=== PATIENT | female | born 1940 | race Caucasian/White ===

== ENCOUNTER 2017-03-28 19:57 | Inpatient (IN) | payer OTHER ==
[~2017-03-28] VITALS: Ht 160 cm; Wt 72.7 kg
[2017-03-28] MEDS ORDERED: FENTANYL CITRATE INJ 50 MCG/1 ML 2 ML VIAL IV STA (20:23)
[2017-03-28] MEDS ORDERED: AMLO-114 PO (20:47)
[2017-03-28] MEDS ORDERED: NAPR1TAB9 PO (20:47)
[2017-03-28] MEDS ORDERED: SITA50TA3 PO (20:47)
[2017-03-28] MEDS ORDERED: LNX25 PO (20:47)
[2017-03-28] MEDS ORDERED: METO25TA4 PO (20:47)
[2017-03-28] MEDS ORDERED: GLC500 PO (20:47)
--- NOTE | 2017-03-28 21:53 | DIAGNOSTIC IMAGING REPORT ---
PELVIS 1 OR 2 VIEW ROUTINE CLINICAL HISTORY: 76 years-old Female presenting with trauma, fall this evening, left hip and knee pain. TECHNIQUE: Single frontal view the pelvis was obtained. COMPARISON: None. FINDINGS: Sacroiliac joints and pubic symphysis congruent. Femoral heads congruent though a subcapital left femoral neck fracture is evident. The fracture is impacted with proximal displacement of the distal fracture fragment and laterally displaced 17 mm. No fracture of the bony pelvis. Degenerative changes of the spine. IMPRESSION: 1. Impacted and mildly displaced subcapital left femoral neck fracture. 2. No pelvic fracture. The report will be called/faxed according to standard departmental protocol. Electronically signed by: Shreyas Mak M.D. 03/28/2017 9:52 PM Dictated Date/Time: 03/28/2017 9:50 PM
--- NOTE | 2017-03-28 21:54 | DIAGNOSTIC IMAGING REPORT ---
CHEST ONE VIEW PORTABLE CLINICAL HISTORY: 76 years-old Female presenting with trauma. TECHNIQUE: Portable upright AP view of the chest was obtained. COMPARISON: None. FINDINGS: Atherosclerosis of the aortic arch. Cardiac silhouette normal in size. Lungs and pleural spaces clear. Degenerative changes of the thoracic spine. Degenerative changes of the shoulders. Cholecystectomy clips noted. IMPRESSION: 1. No acute cardiopulmonary disease. Electronically signed by: Shreyas Mak M.D. 03/28/2017 9:52 PM Dictated Date/Time: 03/28/2017 9:52 PM
--- NOTE | 2017-03-28 21:55 | DIAGNOSTIC IMAGING REPORT ---
L HIP UNILATERAL 2 VIEWS CLINICAL HISTORY: 76 years-old Female presenting with trauma, pain. TECHNIQUE: Frontal and crosstable lateral views of the left hip were obtained. COMPARISON: None. FINDINGS: Impacted mildly displaced subcapital left femoral neck fracture. The left femoral head remains congruent in the acetabulum. No significant angulation. Visualized portion of the bony pelvis intact. No radiographic soft tissue abnormality. IMPRESSION: Impacted mildly displaced subcapital left femoral neck fracture. Electronically signed by: Shreyas Mak M.D. 03/28/2017 9:53 PM Dictated Date/Time: 03/28/2017 9:53 PM
--- NOTE | 2017-03-28 21:56 | DIAGNOSTIC IMAGING REPORT ---
L KNEE 1 OR 2 VIEWS ROUTINE CLINICAL HISTORY: 76 years-old Female presenting with trauma, fall this evening. TECHNIQUE: Frontal and lateral views of the left knee were obtained. COMPARISON: None. FINDINGS: Osteopenia suspected. This limits evaluation for nondisplaced fracture. Tricompartmental degenerative changes. No acute fracture or malalignment is evident allowing for positioning. No significant knee joint effusion. Soft tissue swelling over the patella suggested. IMPRESSION: 1. Allowing for osteopenia, no evidence of acute osseous injury. 2. Tricompartmental degenerative changes suggested. Electronically signed by: Shreyas Mak M.D. 03/28/2017 9:55 PM Dictated Date/Time: 03/28/2017 9:54 PM
[2017-03-28 22:09] LABS: BASO % 0.3 %; BASO ABS # 0.03 K/uL (0-0.2); EOS % 0.4 %; EOS ABS # 0.04 K/uL (0-0.5); HEMATOCRIT 40.5 % (37-47); HEMOGLOBIN 13.4 g/dL (12.0-16.0); IG# 0.06 K/uL (0.00-0.02); LYMPH % 7.3 %; MEAN CELL VOLUME 91.8 fL (80-100); MEAN CORPUSCULAR HEMOGLOBIN 30.4 pg (25-34); MEAN CORPUSCULAR HGB CONC 33.1 g/dl (32-36); MEAN PLATELET VOLUME 12.4 fL (7.4-10.4); MONO % 4.1 %; MONO ABS # 0.45 K/uL (0.11-0.59); NEUT % 87.4 %; NEUT ABS # 9.65 K/uL (1.4-6.5); PLATELET COUNT 183 K/uL (130-400); RED CELL DISTRIBUTION WIDTH CV 12.5 % (11.5-14.5); RED CELL DISTRIBUTION WIDTH SD 42.3 fL (36.4-46.3); WHITE BLOOD COUNT 11.03 K/uL (4.8-10.8)
[2017-03-28 22:17] LABS: CALCIUM 9.2 mg/dl (8.5-10.1); CREATININE 1.36 mg/dl (0.60-1.20)
[2017-03-28 22:20] LABS: TOTAL PROTEIN 7.5 gm/dl (6.4-8.2)
[2017-03-28] MEDS ORDERED: MoRPHine SULFATE 4 MG/ML 1 ML CARP\\VIAL IV STA (22:30)
[2017-03-28] MEDS ORDERED: MAGNESIUM HYDROXIDE SUSP 30 ML UDC PO PRN (22:45)
[2017-03-28] MEDS ORDERED: NALOXONE HCL 0.4 MG/1 ML VIAL/CARP IV PRN (22:45)
[2017-03-28] MEDS ORDERED: POLYETHYLENE (MIRALAX) 17 GM PACK PO PRN (22:45)
[2017-03-28] MEDS ORDERED: SOD PHOSPHATE/SOD BIPHOSPHATE ENEMA 132 ML BTL PR PRN (22:45)
[2017-03-28] MEDS ORDERED: BISACODYL 10 MG SUPP PR PRN (22:45)
--- NOTE | 2017-03-28 23:00 | EMERGENCY ROOM VISIT NOTE ---
History Report prepared by Yao: Autumn Schmitt Under the Supervision of: Dr. Maggi Ni D.O. First contact with patient: 20:07 Chief Complaint: FALL Stated Complaint: FALL, L HIP & KNEE PAIN History of Present Illness The patient is a 76 year old female who presents to the Emergency Room with complaints of an episode of fall [employer]ICER. The patient presents to the ED by EMS. She was walking from her laundry room to the kitchen. She turned to turn off the light when she lost her balance and fell. She landed on her left side. She reports left hip and left knee pain. She was able to pull herself up using a barstool, but she cannot bear weight on her left leg. She denies any head injury or LOC. She denies any rib pain, abdominal pain, shoulder pain, neck pain , or back pain. She is not on any blood thinners. Source of History: patient Onset: [employer] OFFICER Position: other (global) Quality: other (fall) Timing: other (episodic) Associated Symptoms: No LOC, No neck pain, No abdominal pain, No back pain Note: Pt reports left hip pain, left knee pain. Review of Systems See HPI for pertinent positives & negatives. A total of 10 systems reviewed and were otherwise negative. Past Medical & Surgical Medical Problems: (1) CHF (congestive heart failure) (2) DMII (diabetes mellitus, type 2) (3) Osteoarthritis Surgical Problems: (1) S/P jose daniel (2) S/P herniorrhaphy Family History Noncontributory secondary to age. Social History Marital Status: Occupation Status: retired Current/Historical Medications Scheduled Amlodipine (Norvasc), 10 MG PO DAILY Digoxin (Digoxin), 0.25 MG PO [id number] Metformin HCl (Metformin HCl), 500 MG PO BID Metoprolol Succinate (Toprol Xl), 25 MG PO DAILY Naproxen (Aleve), 220 MG PO NEEDED Sitagliptin (Januvia), 50 MG PO DAILY Allergies Coded Allergies: No Known Allergies (Unverified , 03/28/17) Physical Exam Vital Signs Date Time Temp Pulse Resp B/P (MAP) Pulse Ox O2 Delivery O2 Flow Rate FiO2 03/28/17 23:04 86 18 151/104 94 Room Air 03/28/17 22:19 83 2/10/18 22:07 87 18 153/87 92 Room Air 03/28/17 20:08 36.4 77 18 160/110 92 Room Air Physical Exam GENERAL: alert, well appearing, well nourished, no distress, non-toxic HEAD: normocephalic, atraumatic. EYE EXAM: normal conjunctiva, PERRL and EOM's grossly intact OROPHARYNX: no exudate, no erythema, lips, buccal mucosa, and tongue normal and mucous membranes are moist NECK: supple, no nuchal rigidity, no adenopathy, non-tender CHEST: No rib tenderness. LUNGS: Clear to auscultation. No wheezes, rhonchi, rales. Normal chest wall mechanics HEART: no murmurs, S1 normal and S2 normal ABDOMEN: abdomen soft, non-tender, normo-active bowel sounds, no masses, no rebound or guarding. BACK: Back is symmetrical on inspection and there is no deformity, no midline tenderness, no CVA tenderness. SKIN: no rashes and no bruising UPPER EXTREMITIES: upper extremities are grossly normal. LOWER EXTREMITIES: Pain with palpation over the left hip and left knee. LLE slightly externally rotated. Normal pulses. No edema. No obvious deformity. Decreased ROM secondary to pain. NEURO EXAM: Normal sensorium, cranial nerves II-XII grossly intact, normal speech, no gross weakness of arms, no gross weakness of legs. Medical Decision & Procedures ER Provider Diagnostic Interpretation: Xray results have been interpreted by the radiologist and by me. CHEST ONE VIEW PORTABLE CLINICAL HISTORY: 76 years-old Female presenting with trauma. TECHNIQUE: Portable upright AP view of the chest was obtained. COMPARISON: None. FINDINGS: Atherosclerosis of the aortic arch. Cardiac silhouette normal in size. Lungs and pleural spaces clear. Degenerative changes of the thoracic spine. Degenerative changes of the shoulders. Cholecystectomy clips noted. IMPRESSION: 1. No acute cardiopulmonary disease. Electronically signed by: Shreyas Mak M.D. 03/28/2017 9:52 PM Dictated Date/Time: 03/28/2017 9:52 PM L HIP UNILATERAL 2 VIEWS CLINICAL HISTORY: 76 years-old Female presenting with trauma, pain. TECHNIQUE: Frontal and crosstable lateral views of the left hip were obtained. COMPARISON: None. FINDINGS: Impacted mildly displaced subcapital left femoral neck fracture. The left femoral head remains congruent in the acetabulum. No significant angulation. Visualized portion of the bony pelvis intact. No radiographic soft tissue abnormality. IMPRESSION: Impacted mildly displaced subcapital left femoral neck fracture. Electronically signed by: Shreyas Mak M.D. 03/28/2017 9:53 PM Dictated Date/Time: 03/28/2017 9:53 PM L KNEE 1 OR 2 VIEWS ROUTINE CLINICAL HISTORY: 76 years-old Female presenting with trauma, fall this evening. TECHNIQUE: Frontal and lateral views of the left knee were obtained. COMPARISON: None. FINDINGS: Osteopenia suspected. This limits evaluation for nondisplaced fracture. Tricompartmental degenerative changes. No acute fracture or malalignment is evident allowing for positioning. No significant knee joint effusion. Soft tissue swelling over the patella suggested. IMPRESSION: 1. Allowing for osteopenia, no evidence of acute osseous injury. 2. Tricompartmental degenerative changes suggested. Electronically signed by: Shreyas Mak M.D. 03/28/2017 9:55 PM Dictated Date/Time: 03/28/2017 9:54 PM PELVIS 1 OR 2 VIEW ROUTINE CLINICAL HISTORY: 76 years-old Female presenting with trauma, fall this evening, left hip and knee pain. TECHNIQUE: Single frontal view the pelvis was obtained. COMPARISON: None. FINDINGS: Sacroiliac joints and pubic symphysis congruent. Femoral heads congruent though a subcapital left femoral neck fracture is evident. The fracture is impacted with proximal displacement of the distal fracture fragment and laterally displaced 17 mm. No fracture of the bony pelvis. Degenerative changes of the spine. IMPRESSION: 1. Impacted and mildly displaced subcapital left femoral neck fracture. 2. No pelvic fracture. The report will be called/faxed according to standard departmental protocol. Electronically signed by: Shreyas Mak M.D. 03/28/2017 9:52 PM Dictated Date/Time: 03/28/2017 9:50 PM Laboratory Results Test 03/28/17 20:08 Immature Granulocyte % (Auto) 0.5 % White Blood Count 11.03 K/uL (4.8-10.8) Red Blood Count 4.41 M/uL (4.2-5.4) Hemoglobin 13.4 g/dL (12.0-16.0) Hematocrit 40.5 % (37-47) Mean Corpuscular Volume 91.8 fL (80-100) Mean Corpuscular Hemoglobin 30.4 pg (25-34) Mean Corpuscular Hemoglobin Concent 33.1 g/dl (32-36) Platelet Count 183 K/uL (130-400) Mean Platelet Volume 12.4 fL (7.4-10.4) Neutrophils (%) (Auto) 87.4 % Lymphocytes (%) (Auto) 7.3 % Monocytes (%) (Auto) 4.1 % Eosinophils (%) (Auto) 0.4 % Basophils (%) (Auto) 0.3 % Neutrophils # (Auto) 9.65 K/uL (1.4-6.5) Lymphocytes # (Auto) 0.80 K/uL (1.2-3.4) Monocytes # (Auto) 0.45 K/uL (0.11-0.59) Eosinophils # (Auto) 0.04 K/uL (0-0.5) Basophils # (Auto) 0.03 K/uL (0-0.2) Immature Granulocyte # (Auto) 0.06 K/uL (0.00-0.02) Prothrombin Time 10.3 SECONDS (9.0-12.0) Prothromb Time International Ratio 1.0 (0.9-1.1) Total Bilirubin 0.3 mg/dl (0.2-1) Aspartate Amino Transf (AST/SGOT) 18 U/L (15-37) Alanine Aminotransferase (ALT/SGPT) 23 U/L (12-78) Alkaline Phosphatase 50 U/L (45-117) Total Protein 7.5 gm/dl (6.4-8.2) Albumin 4.0 gm/dl (3.4-5.0) Globulin 3.5 gm/dl (2.5-4.0) Albumin/Globulin Ratio 1.1 (0.9-2) Laboratory results per my review. Medications Administered Medications (Trade) Dose Ordered Sig/Lauren Route Start Time Stop Time Status Last Admin Dose Admin Fentanyl Citrate (Fentanyl Inj) 50 mcg NOW STAT IV 03/28/17 20:23 03/28/17 20:24 DC 03/28/17 20:33 50 MCG Morphine Sulfate (MoRPHine SULFATE INJ) 2 mg NOW STAT IV 03/28/17 22:30 03/28/17 22:31 DC 03/28/17 22:44 2 MG Acetaminophen (Tylenol Tab) 650 mg Q6H PRN PO 03/28/17 22:45 04/27/17 22:44 03/29/17 22:24 650 MG Oxycodone HCl (Roxicodone Immediate Rel Tab) 5 mg Q4H PRN PO 03/28/17 22:45 04/11/17 22:44 03/29/17 20:42 5 MG Morphine Sulfate (MoRPHine SULFATE INJ) 2 mg Q2H PRN IV 03/28/17 22:45 04/11/17 22:44 03/29/17 05:57 2 MG ECG Indication: other (fall) Rate (beats per minute): 82 Rhythm: sinus rhythm Findings: no acute ischemic change, no ectopy, other (normal axis, normal intervals) Change: EKG: Patient's electrocardiogram per my interpretation. ED Course 2014: The patient was evaluated in room C9. A complete history and physical exam was performed. 2022: Fentanyl Inj 50 mcg IV. 2158: Upon reevaluation, the patient is resting comfortably. I discussed the findings and the treatment plan with the patient. She expresses agreement and understanding. She will be evaluated for further management. 2214: I reviewed the patient's case with Aye Gann [facility]. She will evaluate the patient for further management. 2229: Morphine Sulfate 2 mg IV. Medical Decision Differential diagnosis: Etiologies such as fracture, dislocation, intra-abdominal, pneumothorax, intrathoracic , intracranial, neurologic, as well as other traumatic pathologies were entertained. Patient well-appearing here, not anticoagulated, isolated hip fracture noted. I do not suspect syncope as no prodromal symptoms, and feel this was a mechanical fall. Patient denies LOC or head trauma, did not feel required additional extensive imaging. Labs, EKG, chest x-ray ordered due to need for admission for clearance and likely surgical intervention for hip fracture. Patient's vital signs stable and given pain medication in the emergency room. Discussed with hospitalist for additional management and consult of orthopedic surgery. Medication Reconcilliation Current Medication List: was personally reviewed by me Blood Pressure Screening Patient's blood pressure: Elevated blood pressure Blood pressure disposition: Elevated BP felt to be situational Consults Time Called: 2202 Consulting Physician: Aye Gann hospitalist Returned Call: [id number] I reviewed the patient's case with her. She will evaluate the patient for further management. Impression Primary Impression: Fall Additional Impression: Hip fracture, left Scribe Attestation The scribe's documentation has been prepared under my direction and personally reviewed by me in its entirety. I confirm that the note above accurately reflects all work, treatment, procedures, and medical decision making performed by me. Departure Information Dispostion Being Evaluated By Hospitalist Patient Instructions [facility] Problem Qualifiers Primary Impression: Fall Encounter type: initial encounter Qualified Codes: W19.XXXA - Unspecified fall, initial encounter Additional Impression: Hip fracture, left Encounter type: initial encounter Fracture type: closed Qualified Codes: S72.002A - Fracture of unspecified part of neck of left femur, initial encounter for closed fracture
[2017-03-28] MEDS ORDERED: GLUCOSE 40% GEL 15 GM TUBE PO PRN (23:30)
[2017-03-28] MEDS ORDERED: GLUCAGON FOR INJ 1 MG VIAL SQ PRN (23:30)
[2017-03-28] MEDS ORDERED: DEXTROSE 50% 50 ML SYR IV PRN (23:30)
[2017-03-28] MEDS ORDERED: GLUCOSE 10 TABS/TUBE PO PRN (23:30)
[2017-03-28 23:40] VITALS: BP 149/80; PULSE 82; TEMP 37; O2SAT 93; BMI 28.4
--- NOTE | 2017-03-28 23:49 | History and Physical ---
History & Physical Date & Time of Service: Mar 28, 2017 at 23:33 Chief Complaint: Hip Fracture, Left Primary Care Physician: Sunny Jeffrey CRNP History of Present Illness Source: patient, clinic records, hospital records 76 yo F presents after a mechanical fall at home after tripping over the threshold from her garage to her kitchen. She states that she landed on her L hip and reports that her L knee is also in more pain now, too. She denies hitting her head. No LOC or dizziness associated with the fall. She denies any other symptoms aside from pain in her hip including no chest pain, SOB, fevers, chills, recent cold symptoms, nausea, vomiting, diarrhea, UTI symptoms. She has a h/o "systolic CHF" on her paper from home and states that she has not had any dyspnea with exertion, weight gain, swelling, or chest pain in the last two years. She is not on a diuretic and lives alone. She takes care of herself and when asked some of the active things she does she reports that she ran the snowblower the other day herself. These strenuous activities do not bring on pain or SOB for her. Denies orthopnea but has a Craftmatic bed with the head and feet elevated, denies PND, doesn't see a Warehouse Processor and doesn't know when her last Echo was performed. Sees a PCP in [facility], Dr. Carter. Workup in ER reveals evidence of a L fem neck fracture. Past Medical/Surgical History Medical Problems: (1) CHF (congestive heart failure) Status: Chronic (2) DMII (diabetes mellitus, type 2) Status: Chronic (3) Osteoarthritis Status: Chronic Surgical Problems: (1) S/P jose daniel Status: Resolved (2) S/P herniorrhaphy Status: Chronic Family History FH: HTN (hypertension) MOTHER Type 2 diabetes mellitus MOTHER Social History Smoking Status: Never Smoker Smokeless Tobacco Use: No Alcohol Use: none Drug Use: none Marital Status: Housing status: lives alone Occupational Status: retired Immunizations History of Influenza Vaccine: Unknown History of Tetanus Vaccine?: Unknown History of Pneumococcal: Unknown History of Hepatitis B Vaccine: Unknown Multi-Drug Resistant Organisms History of MDRO: No Allergies Coded Allergies: No Known Allergies (Unverified , 03/28/17) Home Medications Scheduled Amlodipine (Norvasc), 10 MG PO DAILY Digoxin (Digoxin), 0.25 MG PO 6XWK Metformin HCl (Metformin HCl), 500 MG PO BID Metoprolol Succinate (Toprol Xl), 25 MG PO DAILY Naproxen (Aleve), 220 MG PO NEEDED Sitagliptin (Januvia), 50 MG PO DAILY Review of Systems At least ten systems were reviewed and negative except as indicated in HPI. Physical Exam Vital Signs Date Time Temp Pulse Resp B/P (MAP) Pulse Ox O2 Delivery O2 Flow Rate FiO2 03/28/17 23:04 86 18 151/104 94 Room Air 03/28/17 22:19 83 03/28/17 22:07 87 18 153/87 92 Room Air 03/28/17 20:08 36.4 77 18 160/110 92 Room Air General Appearance: WD/WN, no apparent distress Head: normocephalic, atraumatic Eyes: normal inspection, PERRL, sclerae normal ENT: hearing grossly normal, pharynx normal, + pertinent finding (MMM) Neck: supple, trachea midline Respiratory/Chest: lungs clear, normal breath sounds, no respiratory distress, no accessory muscle use Cardiovascular: regular rate, rhythm, no edema, no gallop, no JVD, no murmur, normal peripheral pulses Abdomen/GI: normal bowel sounds, non tender, soft, no organomegaly Back: normal inspection Extremities/Musculoskelatal: + pertinent finding (no edema, NVI, min movement of L leg 2/2 pain, warm and well perfused) 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, no motor/sensory deficits, alert, normal mood/affect, oriented x 3 Skin: normal color, warm/dry Diagnostics Laboratory Results 03/28/17 20:08 Red Blood Count 4.41, Mean Corpuscular Volume 91.8, Mean Corpuscular Hemoglobin 30.4, Mean Corpuscular Hemoglobin Concent 33.1, Mean Platelet Volume 12.4, Neutrophils (%) (Auto) 87.4, Lymphocytes (%) (Auto) 7.3, Monocytes (%) (Auto) 4.1, Eosinophils (%) (Auto) 0.4, Basophils (%) (Auto) 0.3, Neutrophils # (Auto) 9.65, Lymphocytes # (Auto) 0.80, Monocytes # (Auto) 0.45, Eosinophils # (Auto) 0.04, Basophils # (Auto) 0.03 03/28/17 20:08 Test 03/28/17 20:08 White Blood Count 11.03 K/uL (4.8-10.8) Red Blood Count 4.41 M/uL (4.2-5.4) Hemoglobin 13.4 g/dL (12.0-16.0) Hematocrit 40.5 % (37-47) Mean Corpuscular Volume 91.8 fL (80-100) Mean Corpuscular Hemoglobin 30.4 pg (25-34) Mean Corpuscular Hemoglobin Concent 33.1 g/dl (32-36) Platelet Count 183 K/uL (130-400) Mean Platelet Volume 12.4 fL (7.4-10.4) Neutrophils (%) (Auto) 87.4 % Lymphocytes (%) (Auto) 7.3 % Monocytes (%) (Auto) 4.1 % Eosinophils (%) (Auto) 0.4 % Basophils (%) (Auto) 0.3 % Neutrophils # (Auto) 9.65 K/uL (1.4-6.5) Lymphocytes # (Auto) 0.80 K/uL (1.2-3.4) Monocytes # (Auto) 0.45 K/uL (0.11-0.59) Eosinophils # (Auto) 0.04 K/uL (0-0.5) Basophils # (Auto) 0.03 K/uL (0-0.2) RDW Standard Deviation 42.3 fL (36.4-46.3) RDW Coefficient of Variation 12.5 % (11.5-14.5) Immature Granulocyte % (Auto) 0.5 % Immature Granulocyte # (Auto) 0.06 K/uL (0.00-0.02) Prothrombin Time 10.3 SECONDS (9.0-12.0) Prothromb Time International Ratio 1.0 (0.9-1.1) Anion Gap 7.0 mmol/L (3-11) Est Creatinine Clear Calc Drug Dose 32.6 ml/min Estimated GFR () 43.1 Estimated GFR (Non- 37.2 BUN/Creatinine Ratio 18.7 (10-20) Calcium Level 9.2 mg/dl (8.5-10.1) Total Bilirubin 0.3 mg/dl (0.2-1) Aspartate Amino Transf (AST/SGOT) 18 U/L (15-37) Alanine Aminotransferase (ALT/SGPT) 23 U/L (12-78) Alkaline Phosphatase 50 U/L (45-117) Total Protein 7.5 gm/dl (6.4-8.2) Albumin 4.0 gm/dl (3.4-5.0) Globulin 3.5 gm/dl (2.5-4.0) Albumin/Globulin Ratio 1.1 (0.9-2) Results Past 24 Hours Test 03/28/17 20:08 Range/Units White Blood Count 11.03 4.8-10.8 K/uL Red Blood Count 4.41 4.2-5.4 M/uL Hemoglobin 13.4 12.0-16.0 g/dL Hematocrit 40.5 37-47 % Mean Corpuscular Volume 91.8 80-100 fL Mean Corpuscular Hemoglobin 30.4 25-34 pg Mean Corpuscular Hemoglobin Concent 33.1 32-36 g/dl Platelet Count 183 130-400 K/uL Mean Platelet Volume 12.4 7.4-10.4 fL Neutrophils (%) (Auto) 87.4 % Lymphocytes (%) (Auto) 7.3 % Monocytes (%) (Auto) 4.1 % Eosinophils (%) (Auto) 0.4 % Basophils (%) (Auto) 0.3 % Neutrophils # (Auto) 9.65 1.4-6.5 K/uL Lymphocytes # (Auto) 0.80 1.2-3.4 K/uL Monocytes # (Auto) 0.45 0.11-0.59 K/uL Eosinophils # (Auto) 0.04 0-0.5 K/uL Basophils # (Auto) 0.03 0-0.2 K/uL RDW Standard Deviation 42.3 36.4-46.3 fL RDW Coefficient of Variation 12.5 11.5-14.5 % Immature Granulocyte % (Auto) 0.5 % Immature Granulocyte # (Auto) 0.06 0.00-0.02 K/uL Prothrombin Time 10.3 9.0-12.0 SECONDS Prothromb Time International Ratio 1.0 0.9-1.1 Sodium Level 137 136-145 mmol/L Potassium Level 4.0 3.5-5.1 mmol/L Chloride Level 103 98-107 mmol/L Carbon Dioxide Level 28 21-32 mmol/L Anion Gap 7.0 3-11 mmol/L Blood Urea Nitrogen 25 7-18 mg/dl Creatinine 1.36 0.60-1.20 mg/dl Est Creatinine Clear Calc Drug Dose 32.6 ml/min Estimated GFR () 43.1 Estimated GFR (Non- 37.2 BUN/Creatinine Ratio 18.7 10-20 Random Glucose 156 70-99 mg/dl Calcium Level 9.2 8.5-10.1 mg/dl Total Bilirubin 0.3 0.2-1 mg/dl Aspartate Amino Transf (AST/SGOT) 18 15-37 U/L Alanine Aminotransferase (ALT/SGPT) 23 12-78 U/L Alkaline Phosphatase 50 45-117 U/L Total Protein 7.5 6.4-8.2 gm/dl Albumin 4.0 3.4-5.0 gm/dl Globulin 3.5 2.5-4.0 gm/dl Albumin/Globulin Ratio 1.1 0.9-2 Diagnostic Radiology CHEST ONE VIEW PORTABLE CLINICAL HISTORY: 76 years-old Female presenting with trauma. TECHNIQUE: Portable upright AP view of the chest was obtained. COMPARISON: None. FINDINGS: Atherosclerosis of the aortic arch. Cardiac silhouette normal in size. Lungs and pleural spaces clear. Degenerative changes of the thoracic spine. Degenerative changes of the shoulders. Cholecystectomy clips noted. IMPRESSION: 1. No acute cardiopulmonary disease. L HIP UNILATERAL 2 VIEWS CLINICAL HISTORY: 76 years-old Female presenting with trauma, pain. TECHNIQUE: Frontal and crosstable lateral views of the left hip were obtained. COMPARISON: None. FINDINGS: Impacted mildly displaced subcapital left femoral neck fracture. The left femoral head remains congruent in the acetabulum. No significant angulation. Visualized portion of the bony pelvis intact. No radiographic soft tissue abnormality. IMPRESSION: Impacted mildly displaced subcapital left femoral neck fracture. L KNEE 1 OR 2 VIEWS ROUTINE CLINICAL HISTORY: 76 years-old Female presenting with trauma, fall this evening. TECHNIQUE: Frontal and lateral views of the left knee were obtained. COMPARISON: None. FINDINGS: Osteopenia suspected. This limits evaluation for nondisplaced fracture. Tricompartmental degenerative changes. No acute fracture or malalignment is evident allowing for positioning. No significant knee joint effusion. Soft tissue swelling over the patella suggested. IMPRESSION: 1. Allowing for osteopenia, no evidence of acute osseous injury. 2. Tricompartmental degenerative changes suggested. PELVIS 1 OR 2 VIEW ROUTINE CLINICAL HISTORY: 76 years-old Female presenting with trauma, fall this evening, left hip and knee pain. TECHNIQUE: Single frontal view the pelvis was obtained. COMPARISON: None. FINDINGS: Sacroiliac joints and pubic symphysis congruent. Femoral heads congruent though a subcapital left femoral neck fracture is evident. The fracture is impacted with proximal displacement of the distal fracture fragment and laterally displaced 17 mm. No fracture of the bony pelvis. Degenerative changes of the spine. IMPRESSION: 1. Impacted and mildly displaced subcapital left femoral neck fracture. 2. No pelvic fracture. Normal EKG Impression Assessment and Plan 76 yo F with compensated chronic heart failure presents with L hip fracture after mechanical fall at home. 1. Mechanical Fall with L hip fracture-Ortho consulted, pain management. NPO p MN in prep for poss surgery. Able to proceed to surgery without further preop investigation. 2. CKD Stage III vs ROLA-unknown baseline. Repeat PRP in am. 3. CHF-reported as systolic but no records to verify this. Records ordered. Pt is compensated at this time. On digoxin. Will obtain level. 4. DMII-holding Metformin and Januvia, A1C in am, ISS with carb coverage and holding Lantus at this time while pt NPO. May needed to be added post- operatively junior if steroids used. 5. OA-PRN Aleve OTC but very rarely 6. HTN-controlled on Norvasc and Toprol. DVT proph-SCDs, no chemoprophylaxis with poss upcoming procedure. DNR per my conversation with she and her son on admission. Dispo-to floor, await Ortho recs in am. DO Shen [facility] Hospitalist Level of Care Med/Surg Resuscitation Status FULL RESUSCITATION VTE Prophylaxis VTE Risk Assessment Done? Y/N: Yes Risk Level: Moderate Given or contraindicated: SCD's
[2017-03-29] VITALS (8 sets, daily range): BP systolic 120–134; BP diastolic 66–76; PULSE 73–85; TEMP 36.7–37.9; O2SAT 94–100; Ht 160 cm; Wt 72.7 kg
[2017-03-29] MEDS ORDERED: NURSING VERBAL MED ORDER ONE ×3 (02:15→15:15)
[2017-03-29] MEDS: MoRPHine SULFATE 2 MG/ML CARP IV PRN ×2 (03:05→05:57)
[2017-03-29] MEDS: INSULIN ASPART 100 UNITS/ML 3 ML PEN SC SCH ×4 (05:57→20:48)
[2017-03-29 07:04] LABS: HEMATOCRIT 34.4 % (37-47); HEMOGLOBIN 11.5 g/dL (12.0-16.0); MEAN CELL VOLUME 90.8 fL (80-100); MEAN CORPUSCULAR HEMOGLOBIN 30.3 pg (25-34); MEAN CORPUSCULAR HGB CONC 33.4 g/dl (32-36); MEAN PLATELET VOLUME 11.3 fL (7.4-10.4); PLATELET COUNT 143 K/uL (130-400); RED CELL DISTRIBUTION WIDTH CV 12.7 % (11.5-14.5); RED CELL DISTRIBUTION WIDTH SD 41.9 fL (36.4-46.3); WHITE BLOOD COUNT 8.98 K/uL (4.8-10.8)
[2017-03-29 07:34] LABS: CALCIUM 8.2 mg/dl (8.5-10.1); CREATININE 1.1 mg/dl (0.60-1.20); POTASSIUM 3.8 mmol/L (3.5-5.1)
[2017-03-29] MEDS ORDERED: INSULIN ASPART 100 UNITS/ML 3 ML PEN SC SCH (08:00)
[2017-03-29] MEDS: AMLODIPINE BESYLATE 5 MG TAB PO SCH (08:13)
[2017-03-29] MEDS: METOPROLOL SUCC 25MG EXT REL TAB PO SCH (08:13)
[2017-03-29] MEDS: OXYCODONE HCL IR 5 MG TAB (IMMEDIATE RELEASE) PO PRN ×3 (08:20→20:42)
[2017-03-29] MEDS ORDERED: ONDANSETRON INJ 2 MG/ML 2 ML VIAL IV PRN (09:30)
[2017-03-29] MEDS ORDERED: EpHEDrine SULFATE INJ 50 MG/ML AMP IV PRN (09:30)
[2017-03-29] MEDS ORDERED: FENTANYL CITRATE INJ 50 MCG/1 ML 2 ML VIAL IV PRN (09:30)
[2017-03-29] MEDS ORDERED: ATROPINE SULFATE 0.1 MG/ML 5ML SYR IV PRN (09:30)
--- NOTE | 2017-03-29 09:36 | Orthopedic Consultation ---
Orthopedic Consultation Date of Consultation: Mar 29, 2017. Attending Physician: Marco Rolle M.D. Reason for Consultation: Left hip fracture History of Present Illness 76 year old female had a ground-level mechanical fall last night onto her left hip. She says she just got "twisted up" when she turned to turn off a light switch. She denies tripping over anything, but denies any dizziness, lightheadedness, or loss of consciousness. She had immediate pain and inability to bear weight on her left hip. She denies any other injury other than her left hip. She lives alone, but was able to contact family. Past Medical/Surgical History Medical Problems: (1) Fall Status: Acute Family History FH: HTN (hypertension) MOTHER Type 2 diabetes mellitus MOTHER Social History Smoking Status: Never Smoker Smokeless Tobacco Use: No Alcohol Use: none Drug Use: none Marital Status: Occupation Status: retired Allergies Coded Allergies: No Known Allergies (Unverified , 03/28/17) Home Medications Scheduled Amlodipine (Norvasc), 10 MG PO DAILY Digoxin (Digoxin), 0.25 MG PO 6XWK Metformin HCl (Metformin HCl), 500 MG PO BID Metoprolol Succinate (Toprol Xl), 25 MG PO DAILY Naproxen (Aleve), 220 MG PO NEEDED Sitagliptin (Januvia), 50 MG PO DAILY Current Inpatient Medications Current Inpatient Medications Medications (Trade) Dose Ordered Sig/Lauren Route Start Time Stop Time Status Last Admin Dose Admin Acetaminophen (Tylenol Tab) 650 mg Q6H PRN PO 03/28/17 22:45 04/27/17 22:44 Oxycodone HCl (Roxicodone Immediate Rel Tab) 5 mg Q4H PRN PO 03/28/17 22:45 04/11/17 22:44 03/29/17 08:20 5 MG Morphine Sulfate (MoRPHine SULFATE INJ) 2 mg Q2H PRN IV 03/28/17 22:45 04/11/17 22:44 03/29/17 05:57 2 MG Naloxone HCl (Narcan Inj) 0.1 mg PRN PRN IV 03/28/17 22:45 04/27/17 22:44 Senna/Docusate Sodium (Senokot S Tab) 2 tab HS PO 03/29/17 21:00 3/13/18 20:59 Polyethylene (Miralax Powder Packet) 17 gm DAILY PRN PO 03/28/17 22:45 04/27/17 22:44 Magnesium Hydroxide (Milk Of Magnesia Susp) 30 ml DAILY PRN PO 03/28/17 22:45 04/27/17 22:44 Bisacodyl (Dulcolax Supp) 10 mg DAILY PRN AL 03/28/17 22:45 04/27/17 22:44 Sodium Biphosphate/ Sodium Phosphate (Fleet Enema) 132 ml PRN PRN AL 03/28/17 22:45 Glucose (Glucose 40% Gel) 15-30 GRAMS 15 GRAMS... UD PRN PO 03/28/17 23:30 04/27/17 23:29 Glucose (Glucose Chew Tab) 4-8 Tablets 4 Tabl... UD PRN PO 03/28/17 23:30 04/27/17 23:29 Dextrose (Dextrose 50% 50ML Syringe) 25-50ML OF 50% DW IV FOR... UD PRN IV 03/28/17 23:30 04/27/17 23:29 Glucagon (Glucagon Inj) 1 mg UD PRN SQ 03/28/17 23:30 04/27/17 23:29 Amlodipine Besylate (Norvasc Tab) 10 mg DAILY PO 03/29/17 09:00 04/28/17 08:59 03/29/17 08:13 10 MG Metoprolol Succinate (Toprol Xl Tab) 25 mg DAILY PO 03/29/17 09:00 04/28/17 08:59 03/29/17 08:13 25 MG Digoxin (Lanoxin Tab) 0.25 mg MoTuWeThFrSa@0900 PO 03/30/17 09:00 04/29/17 08:59 Insulin Aspart (novoLOG ASPART) SLIDING SCALE If C... Q6 SC 03/29/17 06:00 04/28/17 05:59 Physical Exam Date Time Temp Pulse Resp B/P (MAP) Pulse Ox O2 Delivery O2 Flow Rate FiO2 03/29/17 08:00 37.2 85 18 127/72 (90) 97 Room Air 03/28/17 23:40 37.0 82 16 149/80 93 Nasal Cannula 2.0 03/28/17 23:40 Nasal Cannula 2.0 03/28/17 23:04 86 18 151/104 94 Room Air 03/28/17 22:19 83 03/28/17 22:07 87 18 153/87 92 Room Air 03/28/17 20:08 36.4 77 18 160/110 92 Room Air Left leg: Examination of the left hip and leg reveals no gross deformity or significant swelling about the hip. Her skin is intact without any abrasions or lacerations. Hip range of motion and strength is limited due to pain. She has intact motor and sensory function distally in the peroneal and tibial nerve distributions, with 5 out of 5 ankle and toe dorsiflexion and plantarflexion strength. Foot is warm and well perfused. General Appearance: no apparent distress Head: normocephalic, atraumatic Laboratory Results Last 24 Hours Test 03/28/17 20:08 03/29/17 00:06 03/29/17 05:51 03/29/17 06:49 White Blood Count 11.03 K/uL 8.98 K/uL Red Blood Count 4.41 M/uL 3.79 M/uL Hemoglobin 13.4 g/dL 11.5 g/dL Hematocrit 40.5 % 34.4 % Mean Corpuscular Volume 91.8 fL 90.8 fL Mean Corpuscular Hemoglobin 30.4 pg 30.3 pg Mean Corpuscular Hemoglobin Concent 33.1 g/dl 33.4 g/dl Platelet Count 183 K/uL 143 K/uL Mean Platelet Volume 12.4 fL 11.3 fL Neutrophils (%) (Auto) 87.4 % Lymphocytes (%) (Auto) 7.3 % Monocytes (%) (Auto) 4.1 % Eosinophils (%) (Auto) 0.4 % Basophils (%) (Auto) 0.3 % Neutrophils # (Auto) 9.65 K/uL Lymphocytes # (Auto) 0.80 K/uL Monocytes # (Auto) 0.45 K/uL Eosinophils # (Auto) 0.04 K/uL Basophils # (Auto) 0.03 K/uL RDW Standard Deviation 42.3 fL 41.9 fL RDW Coefficient of Variation 12.5 % 12.7 % Immature Granulocyte % (Auto) 0.5 % Immature Granulocyte # (Auto) 0.06 K/uL Prothrombin Time 10.3 SECONDS Prothromb Time International Ratio 1.0 Sodium Level 137 mmol/L 138 mmol/L Potassium Level 4.0 mmol/L 3.8 mmol/L Chloride Level 103 mmol/L 103 mmol/L Carbon Dioxide Level 28 mmol/L 29 mmol/L Anion Gap 7.0 mmol/L 7.0 mmol/L Blood Urea Nitrogen 25 mg/dl 21 mg/dl Creatinine 1.36 mg/dl 1.10 mg/dl Est Creatinine Clear Calc Drug Dose 32.6 ml/min 40.3 ml/min Estimated GFR () 43.1 55.7 Estimated GFR (Non- 37.2 48.1 BUN/Creatinine Ratio 18.7 18.7 Random Glucose 156 mg/dl 172 mg/dl Calcium Level 9.2 mg/dl 8.2 mg/dl Total Bilirubin 0.3 mg/dl Aspartate Amino Transf (AST/SGOT) 18 U/L Alanine Aminotransferase (ALT/SGPT) 23 U/L Alkaline Phosphatase 50 U/L Total Protein 7.5 gm/dl Albumin 4.0 gm/dl Globulin 3.5 gm/dl Albumin/Globulin Ratio 1.1 Digoxin Level 1.2 ng/ml Bedside Glucose 160 mg/dl Radiology: X-rays of the left hip were independently reviewed by me. They show a displaced femoral neck fracture. No evidence of any significant arthritic degeneration. Assessment & Plan (1) Hip fracture, left Assessment & Plan: She has a left hip displaced femoral neck fracture without pre-existing hip joint arthritis. I recommended a left hip hemiarthroplasty for optimal function and recovery postoperatively. Risks, benefits, and alternatives of surgery were explained in detail. She understood all this and wished proceed. We'll try to get this done today. Nothing by mouth for surgery. I am covering Orthopedic Surgery call for Dr. Carbajal, who is unavailable. Laci Alexander MD Problem Qualifiers (1) Hip fracture, left: Encounter type: initial encounter Fracture type: closed Qualified Codes: S72.002A - Fracture of unspecified part of neck of left femur, initial encounter for closed fracture
[2017-03-29] MEDS ORDERED: BACITRACIN 50000 UNIT VIAL ONE (09:54)
[2017-03-29] MEDS ORDERED: MIDAZOLAM HCL 1 MG/ML 2ML VIAL ONE (10:35)
[2017-03-29] MEDS ORDERED: FENTANYL CITRATE INJ 50 MCG/1 ML 2 ML VIAL ONE (10:37)
[2017-03-29] MEDS ORDERED: LIDOCAINE HCL 2% 2 ML VIAL (20MG/ML) ONE (10:40)
[2017-03-29] MEDS ORDERED: PROPOFOL IV EMULSION 10 MG/ML 20 ML VIAL IV ONE (10:40)
[2017-03-29] MEDS ORDERED: ONDANSETRON INJ 2 MG/ML 2 ML VIAL ONE (10:40)
[2017-03-29] MEDS ORDERED: CEFAZOLIN SOD 1 GM VIAL ONE (11:10)
[2017-03-29] MEDS ORDERED: PHENYLEPHRINE 100MCG/ML 5ML SYR ONE (11:18)
--- NOTE | 2017-03-29 12:53 | [facility] Post Operative Brief Note ---
Immediate Operative Summary Operative Date Mar 29, 2017. Pre-Operative Diagnosis Left hip displaced femoral neck fracture. Post-Operative Diagnosis Same Procedure(s) Performed Left Bipolar Hip Prosthesis Surgeon Dr. Alexander Finance Director Surgeon(s) Bereket Patiño PA-C Estimated Blood Loss 125mL Findings Consistent with Post-Op Diagnosis Fluids (cc crystalloids) 1000 Specimens Permanent: A. Left femoral head Drains None Anesthesia Type Spinal MAC Complication(s) none Disposition Accompanied Pt To Recover: no Disposition: Recovery Room / PACU
--- NOTE | 2017-03-29 13:34 | [facility] Operative Report ---
Operative Report Operative Date Mar 29, 2017. Pre-Operative Diagnosis Left hip displaced femoral neck fracture. Post-Operative Diagnosis Same Procedure(s) Performed Left hip press-fit bipolar hemiarthroplasty Surgeon Dr. Alexander Hand Bander Surgeon(s) Bereket Patiño PA-C Estimated Blood Loss 125mL Findings See note below. Fluids 1000 Specimens Permanent: A. Left femoral head Drains None Anesthesia MAC, spinal Complication(s) None Disposition Recovery Room / PACU Indications Mrs. Bertrand is a 76-year-old female who injured her left hip after a mechanical ground-level fall at home. She had immediate pain and inability to bear weight. Imaging studies showed a displaced left femoral neck fracture. Surgical intervention was recommended. Risks, benefits, and alternatives of surgery were explained in detail. She understood all this and wished to proceed. Description of Procedure Implants used: Biomet Echo 12mm press-fit femoral stem with Standard offset neck 47mm diameter +0mm neck bipolar femoral head Ms. Bertrand was identified in the preoperative holding area. Operative extremity was marked. She was then brought back to the operating room and placed supine on the operating room table. MAC and spinal anesthesia was induced without complication. She was then rolled into the lateral decubitus position with the left hip up. Left leg was then prepped and draped in standard sterile fashion using chlorhexidine prep. I then made a lateral incision over the hip centered over the greater trochanter for a posterolateral approach to the hip. I dissected through skin and subcutaneous tissue down to the iliotibial band, which was divided in line with its fibers. I then exposed the posterior aspect of the greater trochanter, including the piriformis tendon. Piriformis tendon was divided off of its greater trochanter attachment , and tagged with a #2 Orthocord suture. I similarly divided the short external rotators, and tagged them with a #2 Orthocord suture as well. I then performed a T-capsulotomy to expose the femoral neck fracture and femoral head. The femoral head was extracted out of the acetabulum using a corkscrew extractor. The femoral head was sized, and found to be approximately 47 mm in diameter. I extracted the remnants of the ligamentum teres from the acetabular fovea. I then placed the trial 47 mm femoral head into the acetabulum, which gave a good suction fit. I then made the femoral neck cut in line with the angle provided by the cutting guide approximately 1 cm proximal to the lesser trochanter; this cut line was somewhat dictated by the inferior extent of her fracture. I then opened the proximal femoral canal with a box osteotome, and then used the canal finding reamer and lateralizing reamer to prevent varus positioning of the femoral stem. I then sequentially reamed up to a 12 mm reamer until I got good cortical chatter. I then sequentially broached up to a 12 mm broach and felt that this gave me excellent rotational stability of the femoral component. I then placed a standard offset trial stem onto the broach, and applied a 47 mm trial femoral head. The hip was then reduced and taken through full range of motion. Leg lengths appeared approximately equal. I was able to achieve full extension of the hip, and 90 of flexion with internal rotation with excellent stability. I therefore felt that these were appropriately sized implants. The hip was then redislocated, and the trial implants removed. I then impacted the real Biomet Echo 12 mm stem with a standard offset neck. There was excellent rotational stability of the stem with full press-fit impaction. I then placed the 47 mm bipolar head with a +0 neck on the femoral stem, and impacted this into place on the Acevedo taper. The hip joint was then reduced, and again taken through full range of motion. She had full extension and full flexion with excellent stability in flexion and internal rotation. I was therefore satisfied with the procedure. Wound was copiously irrigated with sterile saline. I then closed the capsulotomy with #2 Orthocord suture. I then reattached the piriformis tendon and short external rotators to the posterior aspect of the greater trochanter through 3 drill holes utilizing the previously placed Orthocord suture. I then closed the iliotibial band with #1 Vicryl suture and #0 V-lock suture. Adipose tissue layer was closed with #0 Vicryl suture. Subcutaneous tissue was closed with 2-0 V-Lock, and skin was closed with 3-0 V-Lock in a running subcuticular fashion. Skin was then sealed with Dermabond. Sterile dressing was then applied with Silverlon. Drapes were then removed, and the hip was placed in an abduction pillow. Patient was awakened from MAC anesthesia, transferred to the stretcher, and taken to the post anesthesia care unit in stable condition. There were no immediate complications from the procedure. I am covering Orthopedic Surgery call for Dr. Carbajal, who is unavailable. Laci Alexander MD I attest to the content of the Intraoperative Record and any orders documented therein. Any exceptions are noted below.
--- NOTE | 2017-03-29 13:54 | DIAGNOSTIC IMAGING REPORT ---
L PELVIS/UNILATERAL HIP 1 VIEW CLINICAL HISTORY: IN PACU - A/P PELVIS and LATERAL HIP INCLUDING ALL OF IMPLANT hip replacement COMPARISON: 03/28/2017 DISCUSSION: Evidence for a total left hip arthroplasty. Good contact between prosthetic and underlying bone. Expected soft tissue postoperative change IMPRESSION: Anatomic alignment status post total left hip arthroplasty. The above report was generated using voice recognition software. It may contain grammatical, syntax or spelling errors. Electronically signed by: Bereket Dunlap M.D. 03/29/2017 1:52 PM Dictated Date/Time: 03/29/2017 1:52 PM
--- NOTE | 2017-03-29 14:06 | Anesthesiology Progress Note ---
Anesthesia Post Op Note Date & Time Mar 29, 2017 at 14:06 Vital Signs Pain Intensity: 0 Vital Signs Past 12 Hours Date Time Temp Pulse Resp B/P (MAP) Pulse Ox O2 Delivery O2 Flow Rate FiO2 03/29/17 13:35 36.8 74 16 125/69 98 Nasal Cannula 2 03/29/17 13:25 77 16 128/67 98 Nasal Cannula 2 03/29/17 13:15 73 14 127/71 100 Nasal Cannula 2 03/29/17 13:05 74 12 118/70 100 Nasal Cannula 2 03/29/17 12:57 37.4 75 23 114/65 98 Oxymask 10 03/29/17 08:00 37.2 85 18 127/72 (90) 97 Room Air 03/29/17 07:30 Room Air Notes Mental Status: alert / awake / arousable, participated in evaluation Pt Amnestic to Procedure: Yes Nausea / Vomiting: adequately controlled Pain: adequately controlled Airway Patency, RR, SpO2: stable & adequate BP & HR: stable & adequate Hydration State: stable & adequate Neuraxial Anesthesia: was administered, sensory block is resolving Anesthetic Complications: no major complications apparent
[2017-03-29] MEDS: SODIUM CHLORIDE 0.9% 1000ML 1,000 ML IV SCH (15:21)
--- NOTE | 2017-03-29 15:32 | Progress Note ---
Internal Med Progress Note Date of Service: Mar 29, 2017. Provider Documentation: SUBJECTIVE: Patient returns from operating room. Left hip displaced femoral neck fracture with Left Bipolar Hip Prosthesis placed by orthopedics. Patient denies acute pain. Speaking on room air comfortably. Ice over left thigh and surgical site in dressing. Discussed Cod Status and affirmed that her wishes are DNR/DNI OBJECTIVE: Exam: General- no acute distress Eyes- EOMI Neck- trachea midline, no JVD Lungs- CTABL, no wheezing Heart- Regular rate Abdomen- soft, nontender, + bowel sound Extremities- ce over left thigh and surgical site in dressing, legs in SCDs, can wiggle toes on both feet, dorsal pulses intact Neuro- awake and alert ASSESSMENT & PLAN: Left hip displaced femoral neck fracture after mechanical fall at home. with Left Bipolar Hip Prosthesis performed by orthopedics on 03/29/17 Osteoarthritis history continue pain medications including narcotic pain medications for now due to recent hip surgery CKD Stage III vs ROLA: trend GFR post-op History of systolic CHF as per history: not in acute CHF exacerbation at this time; digoxin 1.2 within therapeutic limits, continue digoxin and beta philippe HTN history -controlled on Norvasc and Toprol. DMII- preop hbA1c pending results, holding Metformin and Januvia, restarting diet, on sliding scale insulin O DVT proph-SCDs Code Status is DNR/DNI as per my discussion with patient after the operation on 03/29/17 Vital Signs: Date Time Temp Pulse Resp B/P (MAP) Pulse Ox O2 Delivery O2 Flow Rate FiO2 03/29/17 14:52 36.7 73 17 134/76 (95) 100 Nasal Cannula 2.0 03/29/17 13:45 Nasal Cannula 2.0 03/29/17 13:45 95 Nasal Cannula 2.0 03/29/17 13:45 36.9 79 16 130/68 (88) 95 Nasal Cannula 2.0 03/29/17 13:35 36.8 74 16 125/69 98 Nasal Cannula 2 03/29/17 13:25 77 16 128/67 98 Nasal Cannula 2 03/29/17 13:15 73 14 127/71 100 Nasal Cannula 2 03/29/17 13:05 74 12 118/70 100 Nasal Cannula 2 03/29/17 12:57 37.4 75 23 114/65 98 Oxymask 10 03/29/17 08:00 37.2 85 18 127/72 (90) 97 Room Air 03/29/17 07:30 Room Air 03/28/17 23:40 37.0 82 16 149/80 93 Nasal Cannula 2.0 03/28/17 23:40 Nasal Cannula 2.0 03/28/17 23:04 86 18 151/104 94 Room Air 03/28/17 22:19 83 03/28/17 22:07 87 18 153/87 92 Room Air 03/28/17 20:08 36.4 77 18 160/110 92 Room Air Lab Results: Results Past 24 Hours Test 03/28/17 20:08 03/29/17 00:06 03/29/17 05:51 03/29/17 06:49 Range/Units White Blood Count 11.03 8.98 4.8-10.8 K/uL Red Blood Count 4.41 3.79 4.2-5.4 M/uL Hemoglobin 13.4 11.5 12.0-16.0 g/dL Hematocrit 40.5 34.4 37-47 % Mean Corpuscular Volume 91.8 90.8 80-100 fL Mean Corpuscular Hemoglobin 30.4 30.3 25-34 pg Mean Corpuscular Hemoglobin Concent 33.1 33.4 32-36 g/dl Platelet Count 183 143 130-400 K/uL Mean Platelet Volume 12.4 11.3 7.4-10.4 fL Neutrophils (%) (Auto) 87.4 % Lymphocytes (%) (Auto) 7.3 % Monocytes (%) (Auto) 4.1 % Eosinophils (%) (Auto) 0.4 % Basophils (%) (Auto) 0.3 % Neutrophils # (Auto) 9.65 1.4-6.5 K/uL Lymphocytes # (Auto) 0.80 1.2-3.4 K/uL Monocytes # (Auto) 0.45 0.11-0.59 K/uL Eosinophils # (Auto) 0.04 0-0.5 K/uL Basophils # (Auto) 0.03 0-0.2 K/uL RDW Standard Deviation 42.3 41.9 36.4-46.3 fL RDW Coefficient of Variation 12.5 12.7 11.5-14.5 % Immature Granulocyte % (Auto) 0.5 % Immature Granulocyte # (Auto) 0.06 0.00-0.02 K/uL Prothrombin Time 10.3 9.0-12.0 SECONDS Prothromb Time International Ratio 1.0 0.9-1.1 Sodium Level 137 138 136-145 mmol/L Potassium Level 4.0 3.8 3.5-5.1 mmol/L Chloride Level 103 103 98-107 mmol/L Carbon Dioxide Level 28 29 21-32 mmol/L Anion Gap 7.0 7.0 3-11 mmol/L Blood Urea Nitrogen 25 21 7-18 mg/dl Creatinine 1.36 1.10 0.60-1.20 mg/dl Est Creatinine Clear Calc Drug Dose 32.6 40.3 ml/min Estimated GFR () 43.1 55.7 Estimated GFR (Non- 37.2 48.1 BUN/Creatinine Ratio 18.7 18.7 10-20 Random Glucose 156 172 70-99 mg/dl Calcium Level 9.2 8.2 8.5-10.1 mg/dl Total Bilirubin 0.3 0.2-1 mg/dl Aspartate Amino Transf (AST/SGOT) 18 15-37 U/L Alanine Aminotransferase (ALT/SGPT) 23 12-78 U/L Alkaline Phosphatase 50 45-117 U/L Total Protein 7.5 6.4-8.2 gm/dl Albumin 4.0 3.4-5.0 gm/dl Globulin 3.5 2.5-4.0 gm/dl Albumin/Globulin Ratio 1.1 0.9-2 Digoxin Level 1.2 0.8-2.0 ng/ml Bedside Glucose 160 70-90 mg/dl Test 03/29/17 13:09 Range/Units Bedside Glucose 129 70-90 mg/dl Microbiology Results 03/29/17 MRSA DNA Surveillance Screen - Final, Complete Specimen Negative for MRSA by DNA Probe
[2017-03-29] MEDS: CEFAZOLIN IV 1,000 MG in SYRINGE 0 ML IV SCH (18:16)
[2017-03-29] MEDS: ASPIRIN 81 MG ECTAB PO SCH (20:42)
[2017-03-29] MEDS: DOCUSATE SODIUM/SENNA 50/8.6MG TAB PO SCH (20:43)
[2017-03-29] MEDS: ACETAMINOPHEN 325 MG TAB PO PRN (22:24)
[2017-03-30] VITALS (11 sets, daily range): BP systolic 104–140; BP diastolic 62–80; PULSE 72–91; TEMP 36.9–38.5; O2SAT 93–98
[2017-03-30] MEDS: SODIUM CHLORIDE 0.9% 1000ML 1,000 ML IV SCH ×2 (00:40→10:33)
[2017-03-30] MEDS: CEFAZOLIN IV 1,000 MG in SYRINGE 0 ML IV SCH (02:04)
[2017-03-30 06:43] LABS: HEMOGLOBIN A1C 6.2 % (4.5-5.6)
[2017-03-30 07:30] LABS: ALBUMIN 2.7 gm/dl (3.4-5.0); CALCIUM 7.8 mg/dl (8.5-10.1); CREATININE 1.16 mg/dl (0.60-1.20); TOTAL PROTEIN 5.7 gm/dl (6.4-8.2)
[2017-03-30 07:58] LABS: BASO % 0.1 %; BASO ABS # 0.01 K/uL (0-0.2); EOS % 0.7 %; EOS ABS # 0.05 K/uL (0-0.5); HEMATOCRIT 31.7 % (37-47); HEMOGLOBIN 10.5 g/dL (12.0-16.0); IG# 0.03 K/uL (0.00-0.02); LYMPH % 11.4 %; LYMPH ABS # 0.79 K/uL (1.2-3.4); MEAN CELL VOLUME 91.1 fL (80-100); MEAN CORPUSCULAR HEMOGLOBIN 30.2 pg (25-34); MEAN CORPUSCULAR HGB CONC 33.1 g/dl (32-36); MEAN PLATELET VOLUME 12.1 fL (7.4-10.4); MONO % 7.9 %; MONO ABS # 0.55 K/uL (0.11-0.59); NEUT % 79.5 %; NEUT ABS # 5.49 K/uL (1.4-6.5); PLATELET COUNT 105 K/uL (130-400); RED CELL DISTRIBUTION WIDTH CV 12.9 % (11.5-14.5); RED CELL DISTRIBUTION WIDTH SD 43.1 fL (36.4-46.3); WHITE BLOOD COUNT 6.92 K/uL (4.8-10.8)
--- NOTE | 2017-03-30 08:00 | Orthopedic Progress Note ---
Orthopedic Progress Note Date of Service Mar 30, 2017. Subjective Post OP Day: 1 Reports: feeling well, Denies: chest pain, SOB, nausea / vomiting, light headedness, calf pain Objective calves soft nontender, N/V intact, hip located, dressing C/D/I (SILVERLON), A&O x3, toes mobile Date Time Temp Pulse Resp B/P (MAP) Pulse Ox O2 Delivery O2 Flow Rate FiO2 03/30/17 03:57 37.1 73 16 123/71 (88) 97 Nasal Cannula 2.0 03/30/17 02:13 36.9 03/30/17 00:45 Nasal Cannula 2.0 03/29/17 22:20 37.9 75 17 120/66 (84) 94 Nasal Cannula 2.0 03/29/17 19:33 37.7 79 17 126/70 (88) 94 Room Air 2.0 03/29/17 16:45 37.3 80 17 127/72 (90) 97 Nasal Cannula 2.0 03/29/17 15:45 36.8 76 17 131/74 (93) 98 Nasal Cannula 2.0 03/29/17 15:35 99 Nasal Cannula 2.0 03/29/17 14:52 36.7 73 17 134/76 (95) 100 Nasal Cannula 2.0 03/29/17 13:45 Nasal Cannula 2.0 03/29/17 13:45 95 Nasal Cannula 2.0 03/29/17 13:45 36.9 79 16 130/68 (88) 95 Nasal Cannula 2.0 03/29/17 13:35 36.8 74 16 125/69 98 Nasal Cannula 2 03/29/17 13:25 77 16 128/67 98 Nasal Cannula 2 03/29/17 13:15 73 14 127/71 100 Nasal Cannula 2 03/29/17 13:05 74 12 118/70 100 Nasal Cannula 2 03/29/17 12:57 37.4 75 23 114/65 98 Oxymask 10 03/29/17 08:00 37.2 85 18 127/72 (90) 97 Room Air Laboratory Results 24 Hours: Test 03/30/17 05:57 White Blood Count 6.92 K/uL Red Blood Count 3.48 M/uL Hemoglobin 10.5 g/dL Hematocrit 31.7 % Mean Corpuscular Volume 91.1 fL Mean Corpuscular Hemoglobin 30.2 pg Mean Corpuscular Hemoglobin Concent 33.1 g/dl Platelet Count 105 K/uL Mean Platelet Volume 12.1 fL Assessment & Plan Assessment: POD#1 SP LEFT BIPOLAR HEMIARTHROPLASTY Plan: PT/OT DVT PROPH- ASA 81MG BID PAIN MANAGEMENT- [facility], TYLEN[facility] MEDICAL MANAGEMENT DC PLANNING- REFERRAL TO [facility] PENDING (1) Hip fracture, left
[2017-03-30] MEDS: ASPIRIN 81 MG ECTAB PO SCH ×2 (09:41→21:00)
[2017-03-30] MEDS: OXYCODONE HCL IR 5 MG TAB (IMMEDIATE RELEASE) PO PRN ×2 (09:41→19:11)
[2017-03-30] MEDS: AMLODIPINE BESYLATE 5 MG TAB PO SCH (09:43)
[2017-03-30] MEDS: DIGOXIN 0.25 MG TAB PO SCH (09:43)
[2017-03-30] MEDS: METOPROLOL SUCC 25MG EXT REL TAB PO SCH (09:44)
[2017-03-30] MEDS: INSULIN ASPART 100 UNITS/ML 3 ML PEN SC SCH ×4 (09:51→21:05)
--- NOTE | 2017-03-30 19:52 | Progress Note ---
Internal Med Progress Note Date of Service: Mar 30, 2017. Provider Documentation: SUBJECTIVE: Patient performed therapy tasks with physical therapist while sitting in chair. Denies acute pain OBJECTIVE: Exam: General- no acute distress Eyes- EOMI Neck- trachea midline, no JVD Lungs- CTABL, no wheezing Heart- Regular rate Abdomen- soft, nontender, + bowel sound Extremities- able to flex and extend both legs while in chair Neuro- awake and alert ASSESSMENT & PLAN: Left hip displaced femoral neck fracture after mechanical fall at home. with Left Bipolar Hip Prosthesis performed by orthopedics on 03/29/17 Osteoarthritis history continue pain medications including narcotic pain medications for now due to recent hip surgery CKD Stage III vs ROLA: trend GFR post-op History of systolic CHF as per history: not in acute CHF exacerbation at this time; continue digoxin and beta philippe HTN history -controlled on Norvasc and Toprol. DMII- preop hbA1c pending results, holding Metformin and Januvia, restarting diet, on sliding scale insulin DVT proph-SCDs, aspirin Code Status is DNR/DNI as per my discussion with patient after the operation on 03/29/17 Disposition: Awaiting transfer to physical rehabilitation Vital Signs: Date Time Temp Pulse Resp B/P (MAP) Pulse Ox O2 Delivery O2 Flow Rate FiO2 03/30/17 15:57 37.5 83 18 123/72 (89) 95 Nasal Cannula 2.0 03/30/17 12:38 37.0 72 24 104/62 (76) 98 Nasal Cannula 2.0 03/30/17 11:35 37.1 03/30/17 09:43 82 03/30/17 09:27 91 94 03/30/17 08:59 96 Nasal Cannula 2.0 03/30/17 07:58 38.5 80 20 140/80 (100) 96 Room Air 2.0 03/30/17 07:50 Nasal Cannula 2.0 03/30/17 03:57 37.1 73 16 123/71 (88) 97 Nasal Cannula 2.0 03/30/17 02:13 36.9 03/30/17 00:45 Nasal Cannula 2.0 03/29/17 22:20 37.9 75 17 120/66 (84) 94 Nasal Cannula 2.0 Lab Results: Results Past 24 Hours Test 03/29/17 20:46 2/12/18 05:57 03/30/17 08:06 Range/Units Bedside Glucose 223 149 70-90 mg/dl White Blood Count 6.92 4.8-10.8 K/uL Red Blood Count 3.48 4.2-5.4 M/uL Hemoglobin 10.5 12.0-16.0 g/dL Hematocrit 31.7 37-47 % Mean Corpuscular Volume 91.1 80-100 fL Mean Corpuscular Hemoglobin 30.2 25-34 pg Mean Corpuscular Hemoglobin Concent 33.1 32-36 g/dl Platelet Count 105 130-400 K/uL Mean Platelet Volume 12.1 7.4-10.4 fL Neutrophils (%) (Auto) 79.5 % Lymphocytes (%) (Auto) 11.4 % Monocytes (%) (Auto) 7.9 % Eosinophils (%) (Auto) 0.7 % Basophils (%) (Auto) 0.1 % Neutrophils # (Auto) 5.49 1.4-6.5 K/uL Lymphocytes # (Auto) 0.79 1.2-3.4 K/uL Monocytes # (Auto) 0.55 0.11-0.59 K/uL Eosinophils # (Auto) 0.05 0-0.5 K/uL Basophils # (Auto) 0.01 0-0.2 K/uL RDW Standard Deviation 43.1 36.4-46.3 fL RDW Coefficient of Variation 12.9 11.5-14.5 % Immature Granulocyte % (Auto) 0.4 % Immature Granulocyte # (Auto) 0.03 0.00-0.02 K/uL Large Platelets 1+ Sodium Level 138 136-145 mmol/L Potassium Level 4.0 3.5-5.1 mmol/L Chloride Level 105 98-107 mmol/L Carbon Dioxide Level 29 21-32 mmol/L Anion Gap 4.0 3-11 mmol/L Blood Urea Nitrogen 21 7-18 mg/dl Creatinine 1.16 0.60-1.20 mg/dl Est Creatinine Clear Calc Drug Dose 38.2 ml/min Estimated GFR () 52.2 Estimated GFR (Non- 45.1 BUN/Creatinine Ratio 18.2 10-20 Random Glucose 141 70-99 mg/dl Calcium Level 7.8 8.5-10.1 mg/dl Total Bilirubin 0.6 0.2-1 mg/dl Aspartate Amino Transf (AST/SGOT) 410 15-37 U/L Alanine Aminotransferase (ALT/SGPT) 522 12-78 U/L Alkaline Phosphatase 63 45-117 U/L Total Protein 5.7 6.4-8.2 gm/dl Albumin 2.7 3.4-5.0 gm/dl Globulin 3.0 2.5-4.0 gm/dl Albumin/Globulin Ratio 0.9 0.9-2
[2017-03-30] MEDS: DOCUSATE SODIUM/SENNA 50/8.6MG TAB PO SCH (21:00)
[2017-03-30] MEDS: ACETAMINOPHEN 325 MG TAB PO PRN (23:27)
[2017-03-31 00:36] VITALS: TEMP 37.6
[2017-03-31 06:59] VITALS: BP 133/72; PULSE 85; TEMP 37.4; O2SAT 92
[2017-03-31 08:06] LABS: HEMATOCRIT 30.7 % (37-47); HEMOGLOBIN 10.2 g/dL (12.0-16.0); MEAN CELL VOLUME 90.8 fL (80-100); MEAN CORPUSCULAR HEMOGLOBIN 30.2 pg (25-34); MEAN CORPUSCULAR HGB CONC 33.2 g/dl (32-36); MEAN PLATELET VOLUME 12.2 fL (7.4-10.4); PLATELET COUNT 98 K/uL (130-400); RED CELL DISTRIBUTION WIDTH CV 12.8 % (11.5-14.5); RED CELL DISTRIBUTION WIDTH SD 42.4 fL (36.4-46.3); WHITE BLOOD COUNT 8.89 K/uL (4.8-10.8)
[2017-03-31 08:15] LABS: BASO % 0.2 %; BASO ABS # 0.02 K/uL (0-0.2); EOS % 0.9 %; EOS ABS # 0.08 K/uL (0-0.5); IG# 0.03 K/uL (0.00-0.02); LYMPH % 8.4 %; LYMPH ABS # 0.75 K/uL (1.2-3.4); MONO % 8.4 %; MONO ABS # 0.75 K/uL (0.11-0.59); NEUT % 81.8 %; NEUT ABS # 7.26 K/uL (1.4-6.5)
[2017-03-31 08:30] LABS: ALBUMIN 2.5 gm/dl (3.4-5.0); CALCIUM 8.1 mg/dl (8.5-10.1); POTASSIUM 3.7 mmol/L (3.5-5.1)
[2017-03-31 08:33] LABS: TOTAL PROTEIN 5.7 gm/dl (6.4-8.2)
[2017-03-31] MEDS: ASPIRIN 81 MG ECTAB PO SCH (09:08)
[2017-03-31] MEDS: DIGOXIN 0.25 MG TAB PO SCH (09:09)
[2017-03-31] MEDS: METOPROLOL SUCC 25MG EXT REL TAB PO SCH (09:10)
[2017-03-31] MEDS: AMLODIPINE BESYLATE 5 MG TAB PO SCH (09:10)
--- NOTE | 2017-03-31 09:23 | Orthopedic Progress Note ---
Orthopedic Progress Note Date of Service Mar 31, 2017. Subjective Post OP Day: 2 Reports: feeling well, pain controlled w PO medications, Denies: complaints, chest pain, SOB, nausea / vomiting, light headedness, calf pain Objective calves soft nontender, N/V intact, capillary refill less than 2 sec., dressing C /D/I (silverlon intact), A&O x3, toes mobile Date Time Temp Pulse Resp B/P (MAP) Pulse Ox O2 Delivery O2 Flow Rate FiO2 03/31/17 07:30 Room Air 03/31/17 06:59 37.4 85 17 133/72 (92) 92 Room Air 03/31/17 00:36 37.6 03/30/17 23:31 Room Air 03/30/17 23:31 38.0 03/30/17 22:06 37.7 89 17 133/73 (93) 93 Room Air 03/30/17 15:57 37.5 83 18 123/72 (89) 95 Nasal Cannula 2.0 03/30/17 15:25 96 Room Air 03/30/17 12:38 37.0 72 24 104/62 (76) 98 Nasal Cannula 2.0 03/30/17 11:35 37.1 03/30/17 09:43 82 03/30/17 09:27 91 94 Laboratory Results 24 Hours: Test 03/31/17 07:18 White Blood Count 8.89 K/uL Red Blood Count 3.38 M/uL Hemoglobin 10.2 g/dL Hematocrit 30.7 % Mean Corpuscular Volume 90.8 fL Mean Corpuscular Hemoglobin 30.2 pg Mean Corpuscular Hemoglobin Concent 33.2 g/dl Platelet Count 98 K/uL Mean Platelet Volume 12.2 fL Neutrophils (%) (Auto) 81.8 % Lymphocytes (%) (Auto) 8.4 % Monocytes (%) (Auto) 8.4 % Eosinophils (%) (Auto) 0.9 % Basophils (%) (Auto) 0.2 % Neutrophils # (Auto) 7.26 K/uL Lymphocytes # (Auto) 0.75 K/uL Monocytes # (Auto) 0.75 K/uL Eosinophils # (Auto) 0.08 K/uL Basophils # (Auto) 0.02 K/uL Assessment & Plan Assessment: POD#2 SP LEFT BIPOLAR HEMIARTHROPLASTY Plan: PT/OT DVT PROPH- ASA 81MG BID PAIN MANAGEMENT- [place], TYLENOL MEDICAL MANAGEMENT DC PLANNING- REFERRAL TO [facility] PENDING (1) Hip fracture, left Acute Discharge Planning Discharge Planning: rehab hospital
[2017-03-31] MEDS: INSULIN ASPART 100 UNITS/ML 3 ML PEN SC SCH ×2 (09:31→13:20)
[2017-03-31] MEDS: OXYCODONE HCL IR 5 MG TAB (IMMEDIATE RELEASE) PO PRN ×2 (09:37→13:59)
--- NOTE | 2017-03-31 11:07 | Progress Note ---
Internal Med Progress Note Date of Service: Mar 31, 2017. Provider Documentation: SUBJECTIVE: Patient sitting at on chair. No acute distress. Denies pain. Denies shortness of breath OBJECTIVE: Exam: General- no acute distress Eyes- EOMI Neck- trachea midline, no JVD Lungs- CTABL, no wheezing Heart- Regular rate Abdomen- soft, nontender, + bowel sound Extremities- able to flex and extend both legs while in chair left leg strength less strong compared to right side Neuro- awake and alert and oriented ASSESSMENT & PLAN: Left hip displaced femoral neck fracture after mechanical fall at home. with Left Bipolar Hip Prosthesis performed by orthopedics on 03/29/17 Osteoarthritis history continue pain medications including narcotic pain medications for now due to recent hip surgery acute kidney injury resolved History of systolic CHF as per history: not in acute CHF exacerbation at this time; continue digoxin and beta philippe HTN history -controlled on Norvasc and Toprol, continue medications DMII- can restart home oral diabetes medications upon discharge DVT proph-SCDs, aspirin 81 mg BID Disposition: Awaiting transfer to physical rehabilitation Vital Signs: Date Time Temp Pulse Resp B/P (MAP) Pulse Ox O2 Delivery O2 Flow Rate FiO2 03/31/17 09:09 88 03/31/17 07:30 Room Air 03/31/17 06:59 37.4 85 17 133/72 (92) 92 Room Air 03/31/17 00:36 37.6 03/30/17 23:31 Room Air 03/30/17 23:31 38.0 03/30/17 22:06 37.7 89 17 133/73 (93) 93 Room Air 03/30/17 15:57 37.5 83 18 123/72 (89) 95 Nasal Cannula 2.0 03/30/17 15:25 96 Room Air 03/30/17 12:38 37.0 72 24 104/62 (76) 98 Nasal Cannula 2.0 03/30/17 11:35 37.1 Lab Results: Results Past 24 Hours Test 03/30/17 11:59 03/30/17 17:35 03/30/17 20:36 03/31/17 07:18 Range/Units Bedside Glucose 267 200 220 70-90 mg/dl White Blood Count 8.89 4.8-10.8 K/uL Red Blood Count 3.38 4.2-5.4 M/uL Hemoglobin 10.2 12.0-16.0 g/dL Hematocrit 30.7 37-47 % Mean Corpuscular Volume 90.8 80-100 fL Mean Corpuscular Hemoglobin 30.2 25-34 pg Mean Corpuscular Hemoglobin Concent 33.2 32-36 g/dl Platelet Count 98 130-400 K/uL Mean Platelet Volume 12.2 7.4-10.4 fL Neutrophils (%) (Auto) 81.8 % Lymphocytes (%) (Auto) 8.4 % Monocytes (%) (Auto) 8.4 % Eosinophils (%) (Auto) 0.9 % Basophils (%) (Auto) 0.2 % Neutrophils # (Auto) 7.26 1.4-6.5 K/uL Lymphocytes # (Auto) 0.75 1.2-3.4 K/uL Monocytes # (Auto) 0.75 0.11-0.59 K/uL Eosinophils # (Auto) 0.08 0-0.5 K/uL Basophils # (Auto) 0.02 0-0.2 K/uL RDW Standard Deviation 42.4 36.4-46.3 fL RDW Coefficient of Variation 12.8 11.5-14.5 % Immature Granulocyte % (Auto) 0.3 % Immature Granulocyte # (Auto) 0.03 0.00-0.02 K/uL Giant Platelets 1+ Sodium Level 138 136-145 mmol/L Potassium Level 3.7 3.5-5.1 mmol/L Chloride Level 104 98-107 mmol/L Carbon Dioxide Level 27 21-32 mmol/L Anion Gap 7.0 3-11 mmol/L Blood Urea Nitrogen 16 7-18 mg/dl Creatinine 1.00 0.60-1.20 mg/dl Est Creatinine Clear Calc Drug Dose 44.3 ml/min Estimated GFR () 62.5 Estimated GFR (Non- 53.9 BUN/Creatinine Ratio 16.1 10-20 Random Glucose 157 70-99 mg/dl Calcium Level 8.1 8.5-10.1 mg/dl Total Bilirubin 0.6 0.2-1 mg/dl Aspartate Amino Transf (AST/SGOT) 82 15-37 U/L Alanine Aminotransferase (ALT/SGPT) 217 12-78 U/L Alkaline Phosphatase 60 45-117 U/L Total Protein 5.7 6.4-8.2 gm/dl Albumin 2.5 3.4-5.0 gm/dl Globulin 3.2 2.5-4.0 gm/dl Albumin/Globulin Ratio 0.8 0.9-2 Test 03/31/17 08:15 Range/Units Bedside Glucose 158 70-90 mg/dl
[2017-03-31] MEDS ORDERED: RXC5 PO (11:11)
[2017-03-31] MEDS ORDERED: ASPEC81 PO (11:11)
--- NOTE | 2017-03-31 11:14 | Discharge Instructions ---
Discharge Instructions Date of Service Mar 31, 2017. Admission Reason for Admission: Hip Fracture, Left Discharge Discharge Diagnosis / Problem: Left hip displaced femoral neck fracture from mechanical fall Discharge Goals Goal(s): Improve function, Increase independence Activity Recommendations Activity Limitations: per Instructions/Follow-up section . Instructions / Follow-Up Instructions / Follow-Up Left hip displaced femoral neck fracture after mechanical fall at home. with Left Bipolar Hip Prosthesis performed by orthopedics on 03/29/17 Osteoarthritis history continue pain medications including narcotic pain medications for now due to recent hip surgery acute kidney injury resolved History of systolic CHF as per history: not in acute CHF exacerbation at this time; continue digoxin and beta philippe HTN history -controlled on Norvasc and Toprol, continue medications DMII- can restart home oral diabetes medications upon discharge DVT prophylaxis - SCDs, aspirin 81 mg BID Disposition: Awaiting transfer to physical rehabilitation Patient's surgery was performed by [facility]; Performing surgeon Dr. Laci Alexander Address: [address] [place] [address] Please call for follow up appointments Current Hospital Diet Patient's current hospital diet: AHA Diet (Heart Healthy), Diabetes Type 2 Diet Discharge Diet Recommended Diet: AHA Diet (Heart Healthy), Diabetes Type 2 Diet Procedures Procedures Performed: Left Bipolar Hip Prosthesis Pending Studies Studies pending at discharge: no Laboratory Results 03/31/17 07:18 Red Blood Count 3.38, Mean Corpuscular Volume 90.8, Mean Corpuscular Hemoglobin 30.2, Mean Corpuscular Hemoglobin Concent 33.2, Mean Platelet Volume 12.2, Neutrophils (%) (Auto) 81.8, Lymphocytes (%) (Auto) 8.4, Monocytes (%) (Auto) 8.4, Eosinophils (%) (Auto) 0.9, Basophils (%) (Auto) 0.2, Neutrophils # (Auto) 7.26, Lymphocytes # (Auto) 0.75, Monocytes # (Auto) 0.75, Eosinophils # (Auto) 0.08, Basophils # (Auto) 0.02 03/31/17 07:18 Test 03/28/17 20:08 03/29/17 00:06 03/29/17 06:49 03/30/17 05:57 Prothrombin Time 10.3 SECONDS (9.0-12.0) Prothromb Time International Ratio 1.0 (0.9-1.1) Digoxin Level 1.2 ng/ml (0.8-2.0) Estimated Average Glucose 131 mg/dl Hemoglobin A1c 6.2 % (4.5-5.6) Large Platelets 1+ Test 03/31/17 07:18 2 08:15 White Blood Count 8.89 K/uL (4.8-10.8) Red Blood Count 3.38 M/uL (4.2-5.4) Hemoglobin 10.2 g/dL (12.0-16.0) Hematocrit 30.7 % (37-47) Mean Corpuscular Volume 90.8 fL (80-100) Mean Corpuscular Hemoglobin 30.2 pg (25-34) Mean Corpuscular Hemoglobin Concent 33.2 g/dl (32-36) Platelet Count 98 K/uL (130-400) Mean Platelet Volume 12.2 fL (7.4-10.4) Neutrophils (%) (Auto) 81.8 % Lymphocytes (%) (Auto) 8.4 % Monocytes (%) (Auto) 8.4 % Eosinophils (%) (Auto) 0.9 % Basophils (%) (Auto) 0.2 % Neutrophils # (Auto) 7.26 K/uL (1.4-6.5) Lymphocytes # (Auto) 0.75 K/uL (1.2-3.4) Monocytes # (Auto) 0.75 K/uL (0.11-0.59) Eosinophils # (Auto) 0.08 K/uL (0-0.5) Basophils # (Auto) 0.02 K/uL (0-0.2) RDW Standard Deviation 42.4 fL (36.4-46.3) RDW Coefficient of Variation 12.8 % (11.5-14.5) Immature Granulocyte % (Auto) 0.3 % Immature Granulocyte # (Auto) 0.03 K/uL (0.00-0.02) Giant Platelets 1+ Anion Gap 7.0 mmol/L (3-11) Est Creatinine Clear Calc Drug Dose 44.3 ml/min Estimated GFR () 62.5 Estimated GFR (Non- 53.9 BUN/Creatinine Ratio 16.1 (10-20) Calcium Level 8.1 mg/dl (8.5-10.1) Total Bilirubin 0.6 mg/dl (0.2-1) Aspartate Amino Transf (AST/SGOT) 82 U/L (15-37) Alanine Aminotransferase (ALT/SGPT) 217 U/L (12-78) Alkaline Phosphatase 60 U/L (45-117) Total Protein 5.7 gm/dl (6.4-8.2) Albumin 2.5 gm/dl (3.4-5.0) Globulin 3.2 gm/dl (2.5-4.0) Albumin/Globulin Ratio 0.8 (0.9-2) Bedside Glucose 158 mg/dl (70-90) Date/Time Source Procedure Growth Status 03/29/17 00:33 Nasal MRSA DNA Surveillance Screen - Final Specimen Negative for MRSA by DNA Probe Complete Hemoglobin A1c Test 03/29/17 06:49 Range/Units Estimated Average Glucose 131 mg/dl Hemoglobin A1c 6.2 H 4.5-5.6 % Medical Emergencies . Who to Call and When: Medical Emergencies: If at any time you feel your situation is an emergency, please call 911 immediately. . Non-Emergent Contact Non-Emergency issues call your: Primary Care Provider Call Non-Emergent contact if: you have any medication questions . . "Provider Documentation" section prepared by Marco Rolle. . VTE Core Measure Inpt VTE Proph given/why not?: Other Anticoagulation (aspirin), SCD's
[2017-03-31 11:35] VITALS: BP 133/72; PULSE 88; TEMP 37.4; O2SAT 92
--- NOTE | 2017-03-31 12:25 | Discharge Summary ---
Discharge Summary Date of Service Mar 31, 2017. Discharge Summary Admission Date: Mar 28, 2017 at 23:27 Discharge Date: Mar 31, 2017 Discharge Disposition: Rehab Principal Diagnosis: Left hip displaced femoral neck fracture after mechanical fall, with Left Bipolar Hip Prosthesis placed Post-op aftercare Medication Reconciliation New Medications: Aspirin (Aspirin EC Low Dose) 81 Mg Ectab 81 MG PO BID for 30 Days, #30 Oxycodone HCl (Oxycodone HCl) 5 Mg Tab 5 MG PO Q4H PRN for Moderate pain (pain scale 4-6) for 5 Days, #20 TAB Continued Medications: Amlodipine (Norvasc) 10 Mg Tab 10 MG PO DAILY, TAB Digoxin (Digoxin) 0.25 Mg Tab 0.25 MG PO 6XWK DO NOT TAKE ON SUNDAYS Metformin HCl (Metformin HCl) 500 Mg Tab 500 MG PO BID Metoprolol Succinate (Toprol Xl) 25 Mg Tabcr 25 MG PO DAILY, #30 TAB Naproxen (Aleve) 220 Mg Tab 220 MG PO NEEDED, TAB Sitagliptin (Januvia) 50 Mg Tab 50 MG PO DAILY, TAB Admission Information HPI (per Admitting provider): 76 yo F presents after a mechanical fall at home after tripping over the threshold from her garage to her kitchen. She states that she landed on her L hip and reports that her L knee is also in more pain now, too. She denies hitting her head. No LOC or dizziness associated with the fall. She denies any other symptoms aside from pain in her hip including no chest pain, SOB, fevers, chills, recent cold symptoms, nausea, vomiting, diarrhea, UTI symptoms. She has a h/o "systolic CHF" on her paper from home and states that she has not had any dyspnea with exertion, weight gain, swelling, or chest pain in the last two years. She is not on a diuretic and lives alone. She takes care of herself and when asked some of the active things she does she reports that she ran the snowblower the other day herself. These strenuous activities do not bring on pain or SOB for her. Denies orthopnea but has a Craftmatic bed with the head and feet elevated, denies PND, doesn't see a Nursing Faculty and doesn't know when her last Echo was performed. Sees a PCP in [facility], Dr. Carter. Workup in ER reveals evidence of a L fem neck fracture. Physical Exam (per Admitting): General Appearance: WD/WN, no apparent distress Head: normocephalic, atraumatic Eyes: normal inspection, PERRL, sclerae normal ENT: hearing grossly normal, pharynx normal, + pertinent finding (MMM) Neck: supple, trachea midline Respiratory/Chest: lungs clear, normal breath sounds, no respiratory distress, no accessory muscle use Cardiovascular: regular rate, rhythm, no edema, no gallop, no JVD, no murmur , normal peripheral pulses Abdomen/GI: normal bowel sounds, non tender, soft, no organomegaly Back: normal inspection Extremities/Musculoskelatal: + pertinent finding (no edema, NVI, min movement of L leg 2/2 pain, warm and well perfused) Neurologic/Psych: liquor tester II-XII nml as tested, no motor/sensory deficits, alert , normal mood/affect, oriented x 3 Skin: normal color, warm/dry Hospital Course Left hip displaced femoral neck fracture after mechanical fall at home. with Left Bipolar Hip Prosthesis performed by orthopedics on 03/29/17 Osteoarthritis history continue pain medications including narcotic pain medications for now due to recent hip surgery acute kidney injury resolved History of systolic CHF as per history: not in acute CHF exacerbation at this time; continue digoxin and beta philippe HTN history -controlled on Norvasc and Toprol, continue medications DMII- can restart home oral diabetes medications upon discharge DVT proph-SCDs, aspirin 81 mg BID Disposition: Awaiting transfer to physical rehabilitation Total time spent on discharge = 40 minutes This includes examination of the patient, discharge planning, medication reconciliation, and communication with other providers. Discharge Instructions see above
--- NOTE | 2017-03-31 12:43 | Consultant Recommendations ---
Fagot Maker Recommendations Date of Service Mar 31, 2017. Fagot Maker Recommendations ACTIVITY RECOMMENDATIONS: SELF CARE INSTRUCTIONS AFTER HIP HEMIARTHROPLASTY Until the incision and soft tissues around your hip have healed, there is a possibility that the hip prosthesis could dislocate. A. Observe the following precautions to prevent dislocation: 1. Don't bend your hip greater than 90 degrees. 2. Avoid crossing your legs or ankles while standing or lying. 3. Sit with your feet placed 6 inches apart. 4. When sitting, keep your knees below your hips. Sit on a firm surface, avoid deep, soft chairs and couches. Use an elevated toilet seat in the bathroom. 5. Don't bend over at the waist. Use a long handled shoehorn and a sock aid to help you put on your shoes and socks. A garage door opener installer can help you citrus picker objects that are too high or too low to reach. 6. Keep car riding to a minimum for at least one month after surgery. B. Your balance may be shaky for a while. Use crutches or a walker until directed by your doctor. C. Use hand rails when walking on stairs. D. Wear low heeled shoes with non-slip soles. E. Be sure that your floors are free of things that could trip you - throw rugs , electrical cords, small objects. Avoid wet and waxed floors, especially with crutches and canes. F. Try to walk several times a day with rest periods between. G. Continue with all the exercises taught to you in the hospital. Again, make walking a part of your daily routine. SPECIAL CARE INSTRUCTIONS: VERY IMPORTANT TO READ AND REVIEW A. You may still be at risk for phlebitis and blood clots. 1. Wear surgical stockings (TEODORO hose) for 2 weeks after surgery to improve circulation and reduce swelling. 2. Take Aspirin 81mg twice daily for 4 weeks or as directed by your doctor. This is your blood thinner. 3. High risk patients may be prescribed a stronger blood thinner if necessary. 4. If you are on Coumadin normally, your family doctor/program management manager should monitor your blood work. Expect a phone call the day of or the day after bloodwork is drawn to adjust your dosage. B. You must take antibiotics before having dental work, bladder, bowel and other surgery. Your doctor will provide you with a permanent card to carry describing precautions. C. Call [facility] if you have a fever, redness or swelling around the incision, cloudy drainage from incision, or sudden increase in pain in your hip, not relieved by your regular pain medication. D. Please call the office at if you have any concerns or questions about your operation or recovery. * YOU MAY SHOWER, NO TUB BATHS UNTIL CLEARED BY YOUR DOCTOR. * WEAR TEODORO HOSE 20 HOURS PER DAY FOR 2 WEEKS. * YOU SHOULD USE A WALKER OR CRUTCHES FOR 2-4 WEEKS. THIS WILL HELP PREVENT STRAIN ON YOUR HIP MUSCLE AND ALLOW IT TO HEAL PROPERLY. YOU MAY WEAN TO A CANE TOLERATED. * MOST PATIENTS WILL HAVE HOME NURSING FOR THERAPY. IF YOU DECIDE TO DO OUTPATIENT PHYSICAL THERAPY, PLEASE SCHEDULE THIS 3 TIMES PER WEEK. * Silverlon- This is a large adhesive bandage that contains silver ions. This helps your incision heal by fighting off bacteria and protecting it from the outside environment. You are permitted to shower with this dressing. This will remain on your incision for 7 days and then should be removed. Some visible blood or drainage through the dressing window is normal. If there is significant drainage or leaking noted before the 7 days notify your doctor's office immediately. Once removed, keep incision clean and dry. If there is any drainage or redness noted, please call your surgeon. . FOLLOW UP VISIT: If appointment is not already scheduled: Please call [facility] to make a follow-up appointment for 2 weeks after your surgery at .
== END 2017-03-31 14:45 | DRG 470 ==
LOC: EDBD 19:57 → C.EDC 19:58 → ENRESERV 23:06 → C.MSN 23:27
PROVIDERS: ADMIT Hospitalist; ATTEND Hospitalist
PROC: 0SRS01A Replacement of Left Hip Joint, Femoral Surface with Metal Synthetic Substitute, Uncemented, Open Approach (ICD-10-PCS; principal; 2017-03-29 10:30)
DX: S72.012A Unspecified intracapsular fracture of left femur, initial encounter for closed fracture (principal); I50.22 Chronic systolic (congestive) heart failure; N17.9 Acute kidney failure, unspecified; I11.0 Hypertensive heart disease with heart failure; M25.562 Pain in left knee; E11.9 Type 2 diabetes mellitus without complications; Z66 Do not resuscitate; Z79.84 Long term (current) use of oral hypoglycemic drugs; Z79.899 Other long term (current) drug therapy; W18.30XA Fall on same level, unspecified, initial encounter; Y92.009 Unspecified place in unspecified non-institutional (private) residence as the place of occurrence of the external cause; Z83.3 Family history of diabetes mellitus

== ENCOUNTER 2018-05-06 04:52 | Inpatient (IN) ==
--- NOTE | 2018-04-27 10:30 | PAT Medication Instructions ---
Medication Instructions Date of Service April 27, 2018 Home Medications amlodipine [Norvasc] 10 mg PO QAM aspirin [Aspir-81] 81 mg PO DAILY digoxin 0.25 mg PO 6XWK docusate sodium [Colace] 100 mg PO BID lidocaine 2 patch TOPICAL QAM metformin 500 mg PO BID metoprolol succinate [Toprol XL] 25 mg PO QAM sitagliptin [Januvia] 50 mg PO QAM Continue as directed digoxin 0.25 mg PO 6XWK STOP taking 24 hours before surgery lidocaine 2 patch TOPICAL QAM DO NOT take the morning of surgery docusate sodium [Colace] 100 mg PO BID metformin 500 mg PO BID sitagliptin [Januvia] 50 mg PO QAM Take morning of surgery With a small sip of water, OTHERWISE NOTHING TO EAT OR DRINK AFTER MIDNIGHT: amlodipine [Norvasc] 10 mg PO QAM aspirin [Aspir-81] 81 mg PO DAILY metoprolol succinate [Toprol XL] 25 mg PO QAM Take evening before surgery docusate sodium [Colace] 100 mg PO BID metformin 500 mg PO BID Other Notes If you have any questions please call us at [phone] or [phone] or [phone] or [phone]
--- NOTE | 2018-04-27 14:03 | Anesthesiology Consultation ---
Date of Service April 27, 2018 Assessment & Plan (1) Encounter for pre-operative examination: Chart Review Chart Review: Acceptable Risk for Surgery and Patient seen in Pre Admission Testing Consults Requested medical (Dr. Ragland (04/26)) Per note received from PCP's office on 05/03/18, "Pt is cleared for right TKR on 05/06/18 at [facility] with low risk of complications." Teaching & Discussion Pre-Anesthesia Teaching/Discussion Notes: Instructed NPO after midnight before surgery, except medications with 15 cc of water. Medication instructions provided according to the PAT guidelines. History Surgery Operation Date: 05/06/18 10:20 Proposed Procedures p Right Total Knee Arthroplasty - Kai Carbajal MD Operation Date: 05/06/18 13:10 Proposed Procedures p Right Total Knee Arthroplasty - Kai Carbajal MD Height/Weight Height: 5 ft 4 in Weight: 71.3 kg Allergies Allergy/AdvReac Type Severity Reaction Status Date / Time No Known Allergies Allergy Unverified 04/21/18 08:10 Medications Home Medications Medication Instructions Recorded Confirmed Last Taken amlodipine [Norvasc] 10 mg PO QAM 04/21/18 04/21/18 04/20/18 aspirin [Aspir-81] 81 mg PO DAILY 04/21/18 04/21/18 Unknown digoxin 0.25 mg PO 6XWK 04/21/18 04/21/18 04/20/18 docusate sodium [Colace] 100 mg PO BID 04/21/18 04/21/18 Unknown lidocaine 2 patch TOPICAL QAM 04/21/18 04/21/18 04/21/18 metformin 500 mg PO BID 04/21/18 04/21/18 04/20/18 metoprolol succinate [Toprol XL] 25 mg PO QAM 04/21/18 04/21/18 04/20/18 sitagliptin [Januvia] 50 mg PO QAM 04/21/18 04/21/18 04/20/18 Past Medical History Medical History Hernia (Chronic) "LEFT SIDE" Bone spur RIGHT KNEE Diabetes 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 associated with diabetes mellitus due to underlying condition Dilated cardiomyopathy History of CHF (congestive heart failure) Hypertension Moderate nonproliferative diabetic retinopathy Osteoarthritis 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 HAS HAD 2 SURGERIES FOR THIS Retinal tear of both eyes Past Surgical History Surgical History History of cholecystectomy History of eye surgery LASER EYE SURGERY X2 History of hernia surgery UMBILICAL History of hip surgery LEFT BIPOLAR HEMIARTHROPLASTY History of tonsillectomy and adenoidectomy Past Anesthesia History No Hx of Anesthesia Complications and No Family Hx of Anesthesia Complications History of PONV No Motion Sickness Screening History of Motion Sickness: No Social History Smoking Status: Never smoker Do You Dip or Chew Tobacco: No Hx Alcohol Use: No Hx Substance Use: No substance use type: does not use Exercise / Class Metabolic Activity II 4-5 Yardwork/Stairs/Walk up hill (WALKS 1 FOS DAILY. DENIES CP OR SOB. ) Review of Systems Patient denies chest pain, shortness of breath, dyspnea on exertion, reflux, cough, wheezing, palpitations. +Joint Pain (Knee pain) Physical Exam Vital Signs BP: 127/72 P: 74 R: 18 T: 97.6 SPO2: 96% on RA ENMT Mouth: + dentures (Full upper and lower sets) and + edentulous Thyromental Distance: > or= 3.5 Finger Breadths (3.5) Mallampati Class: II Neck normal visual inspection and trachea midline; neck extension not limited Respiratory normal respiratory effort Auscultation: lungs clear to auscultation bilaterally Cardiovascular Rate/Rhythm: regular rate and regular rhythm Heart Sounds: no murmur Neurologic moves all extremities Psychiatric Orientation: alert and oriented x 3 Testing Electrocardiogram Date: 04/27/18 Findings: + NSR @ (63) and + no change from (03/28/17) Chest X-Ray Date: 04/27/18 Findings: + NAD FINDINGS: The lungs are clear. The heart is normal in size. No pleural effusions. No pneumothorax. Prior cholecystectomy. IMPRESSION: No acute process. Laboratory Results 04/27/18 15:01 04/27/18 15:01 Blood Type A Positive 04/27/18 15: Antibody Screen NEGATIVE 04/27/18 15: PT 10.8 Seconds (9.0-12.0) 04/27/18 15: INR 1.1 (0.9-1.1) 04/27/18 15: APTT 24.4 Seconds (21.0-31.0) 04/27/18 15: Hemoglobin A1c 6.1 % (4.5-5.6) H 04/27/18 15:01 Urine Color Yellow 04/27/18 Unknown Urine Appearance Clear (Clear) 04/27/18 Unknown Urine pH 5.5 (4.5-7.5) 04/27/18 Unknown Ur Specific [place] 1.022 (1.000-1.030) 04/27/18 Unknown Urine Protein Negative (Negative) 04/27/18 Unknown Urine Glucose (UA) Negative (Negative) 04/27/18 Unknown Urine Ketones Negative (Negative) 04/27/18 Unknown Urine Nitrite Negative (Negative) 04/27/18 Unknown Ur Leukocyte Esterase 2+ (Negative) H 04/27/18 Unknown Urine WBC (Auto) 10-30 /hpf (0-5) H 04/27/18 Unknown Urine RBC (Auto) 5-10 /hpf (0-4) H 04/27/18 Unknown U Hyaline Cast (Auto) 1-5 /lpf (0-5) 04/27/18 Unknown U Epithel Cells (Auto) 20-30 /lpf (0-5) H 04/27/18 Unknown Urine Bacteria (Auto) Negative (Negative) 04/27/18 Unknown 04/27/18 Unknown Urine Culture - Final Urine,Clean Catch More than three types of organisms present, all low counts mixed probable skin adolfo. No further identifications or sensitivities to follow.
[2018-04-27 15:52] LABS: Basophils # (auto) 0.02 K/uL (0-0.2); Basophils % (auto) 0.3 %; Eosinophils # (auto) 0.03 K/uL (0-0.5); Eosinophils % (auto) 0.5 %; Hematocrit (blood only) 36.6 % (37-47); Lymphocytes # (auto) 1.09 K/uL (1.2-3.4); Lymphocytes % (auto) 18.9 %; Mean Corpuscular Hgb Conc 32.8 g/dL (32-36); Mean Corpuscular Volume 92.2 fL (80-100); Monocytes # (auto) 0.34 K/uL (0.11-0.59); Monocytes % (auto) 5.9 %; Neutrophils % (auto) 74.4 %; Platelet Count 186 K/uL (130-400); RDW Coefficient of Variation 12.9 % (11.5-14.5); RDW Standard Deviation 43.5 fL (36.4-46.3); Red Blood Count 3.97 M/uL (4.2-5.4); White Blood Count 5.78 K/uL (4.8-10.8)
[2018-04-27 15:55] LABS: Appearance Urine Clear (Clear); Bacteria Urine Automated Negative (Negative); Bilirubin Urine Negative (Negative); Blood Urine Trace (Negative); Color Urine Yellow; Epithelial Cell Urine Auto 20-30 /lpf (0-5); Glucose Urine UA Negative (Negative); Ketones Urine Negative (Negative); Leukocyte Esterase Urine 2+ (Negative); Nitrite Urine Negative (Negative); Protein Urine Negative (Negative); Specific Gravity Urine 1.022 (1.000-1.030); Urobilinogen Urine Negative (Negative); pH Urine 5.5 (4.5-7.5)
[2018-04-27 16:05] LABS: INR 1.1 (0.9-1.1); Partial Thromboplastin Ratio 0.9; Partial Thromboplastin Time 24.4 Seconds (21.0-31.0); Prothrombin Time 10.8 Seconds (9.0-12.0)
[2018-04-27 16:12] LABS: Albumin Level 3.5 gm/dl (3.4-5.0); BUN Creatinine Ratio 21.4 (10-20); Calcium 8.6 mg/dl (8.5-10.1); Creatinine Clr Calc Pharmacy 44.2 ml/min; Est GFR (African American) 62.1; Est GFR (Non-African American) 53.5; Potassium 4.1 mmol/L (3.5-5.1)
--- NOTE | 2018-04-27 16:31 | XRay Report ---
XR chest Pre-admission PA/Lat HISTORY: Preop. COMPARISON: Chest 03/28/2017. FINDINGS: The lungs are clear. The heart is normal in size. No pleural effusions. No pneumothorax. Pr ior cholecystectomy. IMPRESSION: No acute process. Electronically signed by: Jony Herzog M.D. 04/27/2018 4:30 PM
[2018-04-27 16:35] LABS: Estimated Average Glucose 128 mg/dl; Hemoglobin A1C 6.1 % (4.5-5.6)
--- NOTE | 2018-05-05 11:56 | History and Physical Report ---
DATE OF ADMISSION: 05/06/2018 CHIEF COMPLAINT: Right knee pain. HISTORY OF PRESENT ILLNESS: The patient is a 77-year-old female with known severe osteoarthritis about her bilateral knees, right worse than left. She uses a cane due to her difficulty with ambulation. She uses topical Lidoderm patches. She continues to have significant pain and disability with activities of daily living and now desires to proceed with right total knee arthroplasty. PAST MEDICAL HISTORY: History of congestive heart failure, hypertension, type 2 diabetes. PAST SURGICAL HISTORY: Cholecystectomy, eye surgery, left hip surgery. MEDICATIONS: Metoprolol succinate ER 25 mg daily, Januvia 50 mg daily, amlodipine 10 mg daily, aspirin 81 mg daily, digoxin 250 mcg daily, metformin 500 mg 2 times daily, acetaminophen p.r.n., Lidoderm topical patch. ALLERGIES: No known drug allergies. SOCIAL HISTORY: She lives alone, otherwise noncontributory. PHYSICAL EXAMINATION: GENERAL: Well-nourished, well-developed elderly female who appears her stated age. HEENT: Normocephalic, atraumatic, extraocular movements intact, oropharynx pink and moist. NECK: Supple without adenopathy. LUNGS: Clear to auscultation bilaterally. HEART: Regular rate and rhythm. ABDOMEN: Soft, nontender, nondistended. EXTREMITIES: The upper extremities are within normal limits. The right knee has a varus alignment. She complains primarily of medial compartment pain. Her range of motion is from 0 to 125 degrees. X-RAYS: X-rays were reviewed. She has a varus aligned knee. She has complete loss of the medial joint space with bone on bone arthritis. There are osteophytes about the medial joint line. There are moderate osteophytes about the lateral joint line as well as patellofemoral compartment. IMPRESSION: Right knee degenerative joint disease. PLAN: Risks versus benefits were discussed, consent was obtained. The patient's primary care physician is Dr. Ragland from [place]. We will proceed with right total knee arthroplasty as indicated.
[2018-05-06] MEDS ORDERED: ACETAMINOPHEN 500 MG TAB PO SCH (06:00)
[2018-05-06] MEDS ORDERED: ROPIVACAINE 0.5% HCL/PF 150 MG, BUPIVACAINE 0.5% MPF 30 ML, EPINEPHrine 30MG/30ML (OR U... INFIL SCH (06:00)
[2018-05-06] MEDS ORDERED: METOCLOPRAMIDE HCL 10 MG TABLET PO SCH (06:00)
[2018-05-06] MEDS ORDERED: GABAPENTIN 300 MG PO SCH (06:00)
[2018-05-06] MEDS ORDERED: FAMOTIDINE 20 MG TAB PO SCH (06:00)
[2018-05-06] MEDS ORDERED: CeleBREX 200 MG CAP PO SCH (06:00)
[2018-05-06] MEDS ORDERED: dexAMETHasone 4 MG TAB PO SCH (06:00)
[2018-05-06] MEDS ORDERED: CEFAZOLIN 1000MG 1,000 MG/7.5 ML SYR IV SCH (06:00)
[2018-05-06] MEDS ORDERED: LR 500ML BOLUS, THEN 15ML/HR IV SCH (06:00)
[2018-05-06] MEDS ORDERED: ROPIVACAINE 0.5% 5 MG/ML 30 ML VIAL ONE (06:18)
[2018-05-06] MEDS ORDERED: BUPIVACAINE 0.5 % 5 MG/1 ML PF 10ML VIAL ONE (06:18)
[2018-05-06] MEDS ORDERED: ORTHO JOINT ANESTHETIC ONE (06:26)
[2018-05-06] MEDS ORDERED: POVIDONE-IODINE OP SOLN 30 ML BTL ONE (06:26)
[2018-05-06] MEDS ORDERED: BACITRACIN INJ 50,000 UNIT VIAL ONE (06:27)
[2018-05-06] MEDS ORDERED: ATROPINE SULFATE 0.1 MG/ML 10ML SYR IV PRN (06:37)
[2018-05-06] MEDS ORDERED: ePHEDrine sulfate 50 MG/ML AMP IV PRN (06:37)
[2018-05-06] MEDS ORDERED: HYDROmorphone INJ 1 MG/ML SYRINGE IV PRN (06:37)
[2018-05-06] MEDS ORDERED: fentaNYL citrate 100 MCG/2 ML VIAL IV PRN (06:37)
[2018-05-06] MEDS ORDERED: PHENYLEPHRINE 100MCG/ML 5ML SYR IV PRN (06:37)
[2018-05-06] MEDS ORDERED: ONDANSETRON INJ 2 MG/ML 2 ML VIAL IV PRN ×2 (06:37→10:58)
[2018-05-06] MEDS ORDERED: MIDAZOLAM HCL 1 MG/ML 2ML VIAL ONE ×2 (06:41)
[2018-05-06] MEDS ORDERED: fentaNYL citrate 100 MCG/2 ML VIAL ONE (06:42)
--- NOTE | 2018-05-06 06:56 | History & Physical Bridge Note ---
Date of Service May 06, 2018 History & Physical Bridge Note I have examined the patient, reviewed the History & Physical and in the interval since the performance of the History & Physical I have noted the following changes of clinical significance: no changes noted
[2018-05-06] MEDS ORDERED: TRANEXAMIC ACID 1,000 MG in 0.9 % SODIUM CHLORIDE 100 ML IV SCH ×2 (07:00→07:30)
[2018-05-06] MEDS ORDERED: PROPOFOL IV EMULSION 10 MG/ML 20 ML VIAL IV ONE (07:21)
[2018-05-06] MEDS ORDERED: ONDANSETRON INJ 2 MG/ML 2 ML VIAL ONE (07:21)
[2018-05-06] MEDS ORDERED: LIDOCAINE HCL 2% 2 ML VIAL/AMP(20MG/ML) INFIL ONE (07:21)
--- NOTE | 2018-05-06 08:01 | Operative Report ---
Post Operative Report Pre & Post Diagnosis Operation Date: 05/06/18 07:00 Pre-Op Diagnosis: Right Knee Osteoarthritis Post-Op Diagnosis: Right Knee Osteoarthritis Operation Date: 05/06/18 13:10 <No data on this case meets the specified criteria> Procedure Operation Date: 05/06/18 07:00 Actual Procedures p Right Total Knee Arthroplasty(Right) - Kai Carbajal MD Operation Date: 05/06/18 13:10 <No data on this case meets the specified criteria> Surgeon Kai Carbajal MD [employer] [place] Estimated Blood Loss 10 Findings Consistent with Post-Op Diagnosis Specimens Bone fragments Anesthesia Type Spinal MAC Complications none Disposition Accompanied Patient To Recovery: No Disposition: Recovery Room Indications Knee pain Description of Procedure Patient's right leg was prepped and draped in usual sterile manner the limb was exsanguinated with an Esmarch bandage and tourniquet inflated to 250 mmHg. Longitudinal incision was made subcutaneous tissue sharply dissected lateral cartilages hemostasis medium parapatellar incision was made. The tibial cut was made using the extra medullary alignment guide this fragment of bone was removed the distal femoral cuts were made a size 4 femur and a size 4 tibia which was incised to be used the tibial poly-was trialed and a size 11 tibia was chosen and a size 36 patella was chosen reduced forcing pegs in the femur were utilized the knee was thoroughly irrigated and bone ends dried the final components were cemented into position after removal of all excess cement the knee was held in extension while the cement hardened and a Betadine soap was utilized and the knee was closed in layers fascia was closed using #1 Vicryl subcutaneous tissue was closed using 0 Dexon skin was closed with is applied. Sterile dressing of Adaptic 4 x 4's sterile web roll and umbilicus was applied. Mr. Smith was utilized for portion of the case including positioning prepping draping surgical assistance wound closure and dressing application. I attest to the content of the Intraoperative Record and any orders documented therein. Any exceptions are noted below.
--- NOTE | 2018-05-06 08:59 | XRay Report ---
RIGHT KNEE 2 VIEWS History: Right total knee arthroplasty. Degenerative arthritis. Postop. FINDINGS: The patient is status post a right total knee arthroplasty. The hardware is intact. No frac ture or dislocation. Surgical drains are in place. IMPRESSION: Right total knee arthroplasty. No evidence for hardware complication. Electronically signed by: Jony Herzog M.D. 05/06/2018 8:58 AM
[2018-05-06] MEDS ORDERED: PHENYLEPHRINE 100MCG/ML 5ML SYR ONE (09:57)
[2018-05-06] MEDS ORDERED: PHENYLEPHRINE HCL 10 MG/ML VIAL ONE (09:57)
--- NOTE | 2018-05-06 10:36 | Anesthesiology Progress Note ---
Date of Service May 06, 2018 Anesthesia Post Procedure Vital Signs Vital Signs: Temp Pulse Pulse Resp BP BP Pulse Ox 05/06/18 10:20 70 19 99 05/06/18 10:17 70 18 102/53 L 99 05/06/18 10:16 70 18 86/57 L 99 05/06/18 10:15 70 19 99 05/06/18 10:11 70 19 110/53 L 99 05/06/18 10:10 70 19 99 05/06/18 10:07 37.1 C 70 18 96/54 L 99 05/06/18 10:05 71 19 96/54 L 99 05/06/18 10:00 69 22 99/54 L 99 05/06/18 09:56 70 19 102/51 L 99 05/06/18 09:55 70 19 99 05/06/18 09:50 71 19 93/54 L 99 05/06/18 09:45 68 18 100/55 L 99 05/06/18 09:40 70 18 106/56 L 99 05/06/18 09:35 69 19 106/55 L 99 05/06/18 09:31 66 100/51 L 99 05/06/18 09:30 67 99 05/06/18 09:25 67 19 98/54 L 99 05/06/18 09:20 67 19 103/57 L 99 05/06/18 09:15 65 18 105/56 L 99 05/06/18 09:10 66 20 100/61 99 05/06/18 09:05 68 17 99/59 L 100 05/06/18 09:00 68 19 94/69 L 99 05/06/18 08:55 67 17 99 05/06/18 08:50 65 24 104/58 L 100 05/06/18 08:45 67 18 112/61 100 05/06/18 08:40 67 16 94/58 L 100 05/06/18 08:37 68 18 101/77 100 05/06/18 08:36 36.6 C 69 13 101/77 99 05/06/18 08:35 98 05/06/18 05:23 36.7 C 73 18 162/81 H 95 Pain Intensity Right Knee: Pain Intensity: 5 Notes Mental Status: alert / awake / arousable Patient Amnestic to Procedure: Yes Nausea / Vomiting: adequately controlled Pain: adequately controlled Airway Patency, RR, SpO2: stable & adequate BP & HR: stable & adequate Neuraxial Anesthesia: was administered and sensory block is resolving Anesthetic Complications: no major complications apparent
[2018-05-06] MEDS ORDERED: ALUMINUM/MAGNESIUM SUSP 30 ML UDC PO PRN (10:58)
[2018-05-06] MEDS ORDERED: BISACODYL 10 MG SUPP PR PRN (10:58)
[2018-05-06] MEDS ORDERED: MAGNESIUM HYDROXIDE SUSP 30 ML UDC PO PRN (10:58)
[2018-05-06] MEDS ORDERED: NALOXONE HCL 0.4 MG/1 ML VIAL/CARP IV PRN (10:58)
[2018-05-06] MEDS ORDERED: HYDROmorphone INJ 0.5 MG/0.5 ML SYR IV PRN (10:58)
[2018-05-06] MEDS ORDERED: METOCLOPRAMIDE HCL INJ 5 MG/ML 2 ML VIAL IV PRN (10:58)
--- NOTE | 2018-05-06 11:14 | Consultation ---
Date of Consultation May 06, 2018 Assessment & Plan (1) DMII (diabetes mellitus, type 2): Hold metformin; ok to continue januvia. Start novolog for meal coverage and highs; correction factor 45 with carb ratio 1:15. She did receive decadron this AM and thus I anticipate she will have hyperg lycemia at least until tomorrow morning. May need basal insulin as well. T2DM diet; BSGs ac/hs. Adjust insulins as needed. Of note - preop a1c was 6.1%. Present on Admission?: Yes (2) CHF (congestive heart failure): h/o "dilated cardiomyopathy" according to records but I cannot find an old echo in her scanned records or [facility] itself. unknown EF. With that said I will assume her EF is preserved as she has not had problems with her CHF in nearly 3 years and does not take diuretics. I am surprised given her T2DM she does not take CHARLEEN or ARB. Continue beta philippe. Watch IVF intake cautiously. Uncertain as to why she takes digoxin -- h/o PAF?? other reason? Either way check digoxin level in am. If any issues with volume / CHF will order echo this admission. Present on Admission?: No (3) Chronic kidney disease, stage III (moderate): creatinine is at baseline preop. recheck BMP in am for stability. (4) Essential (primary) hypertension: Continue home meds with appropriate holds if needed. (5) DVT prophylaxis: per orthopedics - 81mg BID of aspirin x 1 month. Thank you for the consult. The hospitalist service will follow with you. History of Present Illness Reason for Consultation: post-op DM management, etc Requesting Physician: Kai Carbajal MD Attending Physician: Kai Carbajal MD History of Present Illness 77yo female with long-standing T2DM complicated by retinopathy, CKD stage 3, and reported h/o CHF (patient with no exacerbations since 2016) who presented today for elective right TKR. I saw the patient post-op on the orthopedic floor and she was resting comfortably with her son at bedside. Denied any chest pain, dyspnea, abdominal pain, nausea, emesis. She reports good glycemic control at home with most BSGs <150. She has h/o CHF but I cannot find an echo in [facility] to determine if systolic or diastolic. However, she does not take diuretics and has not had decompensation since 2016. She plans to go to inpatient rehab following this stay. Allergies Allergy/AdvReac Type Severity Reaction Status Date / Time No Known Allergies Allergy Unverified 05/06/18 05:22 Home Medications Home Medications Medication Instructions Recorded Confirmed Type amlodipine [Norvasc] 10 mg PO QAM 04/21/18 04/21/18 History aspirin [Aspir-81] 81 mg PO DAILY 04/21/18 05/06/18 History digoxin 0.25 mg PO [id number] 04/21/18 04/21/18 History docusate sodium [Colace] 100 mg PO BID 04/21/18 05/06/18 History lidocaine 2 patch TOPICAL QAM 04/21/18 04/21/18 History metformin 500 mg PO BID 04/21/18 05/06/18 History metoprolol succinate [Toprol XL] 25 mg PO QAM 04/21/18 05/06/18 History sitagliptin [Januvia] 50 mg PO QAM 04/21/18 04/21/18 History Patient History Medical History Hernia (Chronic) "LEFT SIDE" of abdomen Bone spur RIGHT KNEE Diabetes History of CHF (congestive heart failure) Hypertension Osteoarthritis 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 associated with diabetes mellitus due to underlying condition Dilated cardiomyopathy Moderate nonproliferative diabetic retinopathy 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 HAS HAD 2 SURGERIES FOR THIS Retinal tear of both eyes Surgical History History of cholecystectomy History of eye surgery LASER EYE SURGERY X2 History of hernia surgery UMBILICAL History of hip surgery LEFT BIPOLAR HEMIARTHROPLASTY following hip fracture History of tonsillectomy and adenoidectomy Family History Mother Diabetes Renal failure Social History Preferred Language: [place] Islander Communication Ability: Effective Coloring Room Worker Required: No Beliefs That Will Affect Care: None marital status details: , had been twice previously; 8 kids in total. Current Living Situation: Alone Current Living Situation Comment: lives alone in [place] current occupational status: retired Other Information That Helps Us Care for You: No other: worked as nurse's aid for many years Feels Safe at Home: Yes Smoking Status: Never smoker Hx Alcohol Use: No Hx Substance Use: No Review of Systems Constitutional: no fever, no chills, no fatigue, no anorexia, no weight loss and no weight gain Eyes: no worsening vision Ear, Nose, Mouth, Throat: no dysphagia Respiratory: no cough, no dyspnea and no dyspnea on exertion Cardiovascular: no chest pain Gastrointestinal: no abdominal pain, no nausea, no vomiting, no constipation, no diarrhea/loose stools and no blood in stools Genitourinary (Female): no dysuria and no hematuria Musculoskeletal: + joint pain Integumentary: no rash Neurologic: no numbness Psychiatric: no depression and no anxiety BSGs <150 at home Hematologic / Lymphatic: no easy bleeding Physical Exam Vital Signs (Past 24 Hours): Last Vital Signs Temp 37.1 C 05/06/18 10:07 Pulse 70 05/06/18 10:20 Resp 19 05/06/18 10:20 BP 102/53 L 05/06/18 10:17 Pulse Ox 99 05/06/18 10:20 Constitutional: well nourished, + acute distress and average body habitus; not ill appearing and no altered mental status Eyes: PERRL ENMT: external ear and nose normal, oropharynx normal Neck: trachea midline, no thyromegaly Respiratory: normal respiratory effort, lungs clear to auscultation Cardiovascular: Rate/Rhythm: regular rate and regular rhythm Heart Sounds: normal S1, normal S2 and + murmur (1/6 SANJEEV LLSB) Vessels: posterior tibial pulses present and dorsalis pedis pulses present; no JVD Extremities: no pedal edema Gastrointestinal (Abdomen): normal bowel sounds, soft, nontender, no hepatosplenomegaly Percussion/Palpation: + hernia (LLQ - reducible) Musculoskeletal: right knee wrapped in large dressings; drain in place; ice pack present Skin: no rashes, warm and dry Neurologic: moves all extremities; no focal motor deficits Psychiatric: A+Ox3, euthymic affect Results & Data Laboratory Results Laboratory Last Values WBC 5.78 K/uL (4.8-10.8) 04/27/18 15:01 RBC 3.97 M/uL (4.2-5.4) L 04/27/18 15:01 Hgb 12.0 g/dL (12.0-16.0) 04/27/18 15: Hct 36.6 % (37-47) L 04/27/18 15:01 MCV 92.2 fL (80-100) 04/27/18 15:01 MCH 30.2 pg (25-34) 04/27/18 15:01 MCHC 32.8 g/dL (32-36) 04/27/18 15:01 RDW Std Deviation 43.5 fL (36.4-46.3) 04/27/18 15:01 RDW Coeff of Atiya 12.9 % (11.5-14.5) 04/27/18 15: Plt Count 186 K/uL (130-400) 04/27/18 15:01 MPV 12.0 fL (7.4-10.4) H 04/27/18 15:01 Immature Gran % (Auto) 0.0 % 04/27/18 15:01 Neut % (Auto) 74.4 % 04/27/18 15:01 Lymph % (Auto) 18.9 % 04/27/18 15:01 [place] % (Auto) 5.9 % 04/27/18 15:01 Eos % (Auto) 0.5 % 04/27/18 15:01 Baso % (Auto) 0.3 % 04/27/18 15:01 Immature Gran # (Auto) 0.00 K/uL (0.00-0.02) 04/27/18 15:01 Neut # (Auto) 4.30 K/uL (1.4-6.5) 04/27/18 15:01 Lymph # (Auto) 1.09 K/uL (1.2-3.4) L 04/27/18 15:01 [place] # (Auto) 0.34 K/uL (0.11-0.59) 04/27/18 15:01 Eos # (Auto) 0.03 K/uL (0-0.5) 04/27/18 15:01 Baso # (Auto) 0.02 K/uL (0-0.2) 04/27/18 15:01 PT 10.8 Seconds (9.0-12.0) 04/27/18 15:01 INR 1.1 (0.9-1.1) 04/27/18 15:01 APTT 24.4 Seconds (21.0-31.0) 04/27/18 15:01 PTT Ratio 0.9 04/27/18 15:01 Sodium 141 mmol/L (136-145) 04/27/18 15:01 Potassium 4.1 mmol/L (3.5-5.1) 04/27/18 15:01 Chloride 104 mmol/L (98-107) 04/27/18 15:01 Carbon Dioxide 30 mmol/L (21-32) 04/27/18 15:01 Anion Gap 7.0 (3-11) 04/27/18 15:01 BUN 21 mg/dl (7-18) H 04/27/18 15:01 Creatinine 1.00 mg/dl (0.6-1.2) 04/27/18 15:01 Est Cr Clr Drug Dosing 44.2 ml/min 04/27/18 15:01 Est GFR ( Amer) 62.1 04/27/18 15:01 Est GFR (Non-Af Amer) 53.5 04/27/18 15:01 BUN/Creatinine Ratio 21.4 (10-20) H 04/27/18 15:01 Glucose 120 mg/dl (70-99) H 04/27/18 15:01 POC Glucose 145 (70-99) H 05/06/18 09:11 Estimat Average Glucose 128 mg/dl 04/27/18 15:01 Hemoglobin A1c 6.1 % (4.5-5.6) H 04/27/18 15:01 Calcium 8.6 mg/dl (8.5-10.1) 04/27/18 15:01 Albumin 3.5 gm/dl (3.4-5.0) 04/27/18 15:01 Urine Color Yellow 04/27/18 Unknown Urine Appearance Clear (Clear) 04/27/18 Unknown Urine pH 5.5 (4.5-7.5) 04/27/18 Unknown Ur Specific [place] 1.022 (1.000-1.030) 04/27/18 Unknown Urine Protein Negative (Negative) 04/27/18 Unknown Urine Glucose (UA) Negative (Negative) 04/27/18 Unknown Urine Ketones Negative (Negative) 04/27/18 Unknown Urine Blood Trace (Negative) H 04/27/18 Unknown Urine Nitrite Negative (Negative) 04/27/18 Unknown Urine Bilirubin Negative (Negative) 04/27/18 Unknown Urine Urobilinogen Negative (Negative) 04/27/18 Unknown Ur Leukocyte Esterase 2+ (Negative) H 04/27/18 Unknown Urine WBC (Auto) 10-30 /hpf (0-5) H 04/27/18 Unknown Urine RBC (Auto) 5-10 /hpf (0-4) H 04/27/18 Unknown U Hyaline Cast (Auto) 1-5 /lpf (0-5) 04/27/18 Unknown U Epithel Cells (Auto) 20-30 /lpf (0-5) H 04/27/18 Unknown Urine Bacteria (Auto) Negative (Negative) 04/27/18 Unknown Blood Type A Positive 04/27/18 15:01 Antibody Screen NEGATIVE 04/27/18 15:01 (1) DMII (diabetes mellitus, type 2) Diabetes mellitus [facility] insulin use: without technician terminal and repeater use Diabetes mellitus complication status: with ophthalmic complications Diabetes mellitus complication detail: with diabetic retinopathy Diabetic retinopathy severity: with unspecified retinopathy severity Diabetes mellitus macular edema: macular edema presence unspecified Laterality: bilateral Qualified Code(s): E11.319 - Type 2 diabetes mellitus with unspecified diabetic retinopathy without macular edema (2) CHF (congestive heart failure) Heart failure type: unspecified Heart failure chronicity: chronic Qualified Code(s): I50.9 - Heart failure, unspecified
[2018-05-06] MEDS ORDERED: CARBOHYDRATES FOR HYPOGLYCEMIA PO PRN (11:15)
[2018-05-06] MEDS ORDERED: GLUCOSE 10 TABS/TUBE PO PRN (11:15)
[2018-05-06] MEDS ORDERED: GLUCOSE 40% GEL 15 GM TUBE PO PRN (11:15)
[2018-05-06] MEDS ORDERED: DEXTROSE 50% 50 ML SYRINGE IV PRN (11:15)
[2018-05-06] MEDS ORDERED: GLUCAGON FOR INJ 1 MG VIAL SQ PRN (11:15)
[2018-05-06] MEDS: SODIUM CHLORIDE 0.9% 1000ML 1,000 ML IV SCH ×2 (11:46→21:41)
[2018-05-06] MEDS: SITAGLIPTIN PHOSPHATE 25 MG TAB PO SCH (11:48)
[2018-05-06] MEDS: MULTIVITAMIN TAB PO SCH (11:48)
[2018-05-06] MEDS: DOCUSATE SODIUM 100 MG CAP PO SCH ×2 (11:48→20:45)
[2018-05-06] MEDS: ASPIRIN 81 MG ECTAB PO SCH ×2 (11:49→20:45)
[2018-05-06] MEDS: INSULIN ASPART 100 UNITS/ML 3 ML PEN SC SCH ×3 (13:39→21:53)
[2018-05-06] MEDS: ACETAMINOPHEN 500 MG TAB PO SCH ×2 (13:40→21:43)
[2018-05-06] MEDS: KETOROLAC TROMETHAMINE 15 MG/ML VIAL IV SCH ×3 (13:40→23:38)
[2018-05-06] MEDS: CEFAZOLIN 1000MG 1,000 MG/7.5 ML SYR IV SCH ×2 (16:45→23:38)
[2018-05-06] MEDS: FERROUS GLUCONATE 324 MG TAB PO SCH (19:24)
[2018-05-06] MEDS: ASCORBIC ACID 500 MG TAB PO SCH (19:24)
[2018-05-06] MEDS: SENNA 8.6 MG TAB PO SCH (20:45)
[2018-05-06] MEDS: INSULIN GLARGINE SOLOSTAR 100 UNITS/ML 3 ML PEN SC SCH (21:44)
[2018-05-07] MEDS: KETOROLAC TROMETHAMINE 15 MG/ML VIAL IV SCH (05:46)
[2018-05-07] MEDS: ACETAMINOPHEN 500 MG TAB PO SCH ×3 (05:46→21:15)
[2018-05-07 06:14] LABS: Hematocrit (blood only) 33.9 % (37-47); Hemoglobin 11.2 g/dL (12.0-16.0); Mean Corpuscular Volume 90.4 fL (80-100); Mean Platelet Volume 11.9 fL (7.4-10.4); Platelet Count 200 K/uL (130-400); RDW Coefficient of Variation 12.8 % (11.5-14.5); RDW Standard Deviation 42.3 fL (36.4-46.3); Red Blood Count 3.75 M/uL (4.2-5.4); White Blood Count 13.53 K/uL (4.8-10.8)
[2018-05-07 06:49] LABS: BUN Creatinine Ratio 21.3 (10-20); Calcium 8.2 mg/dl (8.5-10.1); Creatinine Clr Calc Pharmacy 29.2 ml/min; Est GFR (African American) 37.7; Est GFR (Non-African American) 32.5; Potassium 3.8 mmol/L (3.5-5.1)
[2018-05-07] MEDS ORDERED: dexAMETHasone 10 MG in SYRINGE 0 ML IV SCH (08:00)
--- NOTE | 2018-05-07 08:01 | Orthopedic Progress Note ---
Date of Service May 07, 2018 Assessment & Plan (1) Status post right knee replacement: 77 yo female stable POD #1 s/p right TKA 1. Med management 2. DVT prophylaxis- ASA, SCDs 3. PT/OT 4. D/C planning- pt interested in [facility] Subjective Pt resting in chair, pain controlled, denies complaints Physical Exam Vital Signs (Past 24 Hours): Last Vital Signs Temp 36.3 C L 05/07/18 07:50 Pulse 68 05/07/18 07:50 Resp 16 05/07/18 07:50 BP 150/72 H 05/07/18 07:50 Pulse Ox 97 05/07/18 07:50 Physical Exam: Toes mobile, N/V/I, dressing and drain in place Results & Data Laboratory Results 05/07/18 05/07/18 05/07/18 Range/Units 05:44 05:44 05:44 WBC 13.53 H (4.8-10.8) K/uL RBC 3.75 L (4.2-5.4) M/uL Hgb 11.2 L (12.0-16.0) g/dL Hct 33.9 L (37-47) % MCV 90.4 (80-100) fL MCH 29.9 (25-34) pg MCHC 33.0 (32-36) g/dL RDW Std Deviation 42.3 (36.4-46.3) fL RDW Coeff of Atiya 12.8 (11.5-14.5) % Plt Count 200 (130-400) K/uL MPV 11.9 H (7.4-10.4) fL Sodium 138 (136-145) mmol/L Potassium 3.8 (3.5-5.1) mmol/L Chloride 107 (98-107) mmol/L Carbon Dioxide 26 (21-32) mmol/L Anion Gap 5.0 (3-11) BUN 32 H (7-18) mg/dl Creatinine 1.51 H (0.6-1.2) mg/dl Est Cr Clr Drug Dosing 29.2 ml/min Est GFR ( Amer) 37.7 Est GFR (Non-Af Amer) 32.5 BUN/Creatinine Ratio 21.3 H (10-20) Glucose 114 H (70-99) mg/dl POC Glucose (70-99) Calcium 8.2 L (8.5-10.1) mg/dl Digoxin 1.0 (0.8-2.0) ng/ml 05/06/18 05/06/18 05/06/18 Range/Units 20:56 17:11 12:33 WBC (4.8-10.8) K/uL RBC (4.2-5.4) M/uL Hgb (12.0-16.0) g/dL Hct (37-47) % MCV (80-100) fL MCH (25-34) pg MCHC (32-36) g/dL RDW Std Deviation (36.4-46.3) fL RDW Coeff of Atiya (11.5-14.5) % Plt Count (130-400) K/uL MPV (7.4-10.4) fL Sodium (136-145) mmol/L Potassium (3.5-5.1) mmol/L Chloride (98-107) mmol/L Carbon Dioxide (21-32) mmol/L Anion Gap (3-11) BUN (7-18) mg/dl Creatinine (0.6-1.2) mg/dl Est Cr Clr Drug Dosing ml/min Est GFR ( Amer) Est GFR (Non-Af Amer) BUN/Creatinine Ratio (10-20) Glucose (70-99) mg/dl POC Glucose 238 H 186 H 192 H (70-99) Calcium (8.5-10.1) mg/dl Digoxin (0.8-2.0) ng/ml 05/06/18 Range/Units 09:11 WBC (4.8-10.8) K/uL RBC (4.2-5.4) M/uL Hgb (12.0-16.0) g/dL Hct (37-47) % MCV (80-100) fL MCH (25-34) pg MCHC (32-36) g/dL RDW Std Deviation (36.4-46.3) fL RDW Coeff of Atiya (11.5-14.5) % Plt Count (130-400) K/uL MPV (7.4-10.4) fL Sodium (136-145) mmol/L Potassium (3.5-5.1) mmol/L Chloride (98-107) mmol/L Carbon Dioxide (21-32) mmol/L Anion Gap (3-11) BUN (7-18) mg/dl Creatinine (0.6-1.2) mg/dl Est Cr Clr Drug Dosing ml/min Est GFR ( Amer) Est GFR (Non-Af Amer) BUN/Creatinine Ratio (10-20) Glucose (70-99) mg/dl POC Glucose 145 H (70-99) Calcium (8.5-10.1) mg/dl Digoxin (0.8-2.0) ng/ml
--- NOTE | 2018-05-07 08:12 | Anesthesiology Progress Note ---
Date of Service May 07, 2018 Anesthesia Post Procedure Vital Signs Vital Signs: Temp Pulse Pulse Pulse Resp BP BP 05/07/18 07:50 36.3 C L 68 16 150/72 H 05/07/18 03:07 36.4 C L 65 20 147/75 H 05/06/18 23:04 36.9 C 69 20 121/71 05/06/18 19:51 36.4 C L 58 L 17 128/71 05/06/18 15:17 36.9 C 66 16 110/65 05/06/18 13:52 37 C 67 16 122/67 05/06/18 12:35 36.5 C 65 16 108/64 05/06/18 11:52 36.9 C 67 16 108/64 05/06/18 11:19 36.5 C 66 15 100/66 05/06/18 10:45 36.8 C 70 16 99/58 L 05/06/18 10:20 70 19 05/06/18 10:17 70 18 102/53 L 05/06/18 10:16 70 18 86/57 L 05/06/18 10:15 70 19 05/06/18 10:11 70 19 110/53 L 05/06/18 10:10 70 19 05/06/18 10:07 37.1 C 70 18 96/54 L 05/06/18 10:05 71 19 96/54 L 05/06/18 10:00 69 22 99/54 L 05/06/18 09:56 70 19 102/51 L 05/06/18 09:55 70 19 05/06/18 09:50 71 19 93/54 L 05/06/18 09:45 68 18 100/55 L 05/06/18 09:40 70 18 106/56 L 05/06/18 09:35 69 19 106/55 L 05/06/18 09:31 66 100/51 L 05/06/18 09:30 67 05/06/18 09:25 67 19 98/54 L 05/06/18 09:20 67 19 103/57 L 05/06/18 09:15 65 18 105/56 L 05/06/18 09:10 66 20 100/61 05/06/18 09:05 68 17 99/59 L 05/06/18 09:00 68 19 94/69 L 05/06/18 08:55 67 17 05/06/18 08:50 65 24 104/58 L 05/06/18 08:45 67 18 112/61 05/06/18 08:40 67 16 94/58 L 05/06/18 08:37 68 18 101/77 05/06/18 08:36 36.6 C 69 13 101/77 05/06/18 08:35 Pulse Ox 05/07/18 07:50 97 05/07/18 03:07 92 05/06/18 23:04 93 05/06/18 19:51 97 05/06/18 15:17 96 05/06/18 13:52 94 05/06/18 12:35 93 05/06/18 11:52 98 05/06/18 11:19 98 05/06/18 10:45 95 05/06/18 10:20 99 05/06/18 10:17 99 05/06/18 10:16 99 05/06/18 10:15 99 05/06/18 10:11 99 05/06/18 10:10 99 05/06/18 10:07 99 05/06/18 10:05 99 05/06/18 10:00 99 05/06/18 09:56 99 05/06/18 09:55 99 05/06/18 09:50 99 05/06/18 09:45 99 05/06/18 09:40 99 05/06/18 09:35 99 05/06/18 09:31 99 05/06/18 09:30 99 05/06/18 09:25 99 05/06/18 09:20 99 05/06/18 09:15 99 05/06/18 09:10 99 05/06/18 09:05 100 05/06/18 09:00 99 05/06/18 08:55 99 05/06/18 08:50 100 05/06/18 08:45 100 05/06/18 08:40 100 05/06/18 08:37 100 05/06/18 08:36 99 05/06/18 08:35 98 Pain Intensity Right Knee: Pain Intensity: 5 Notes Mental Status: alert / awake / arousable and participated in evaluation Patient Amnestic to Procedure: Yes Nausea / Vomiting: adequately controlled Pain: adequately controlled Airway Patency, RR, SpO2: stable & adequate BP & HR: stable & adequate Hydration State: stable & adequate Neuraxial Anesthesia: was administered and sensory block resolved Anesthetic Complications: no major complications apparent and Pt Satisfied with anesthetic care
[2018-05-07] MEDS ORDERED: SODIUM CHLORIDE 0.9% 1000ML 1,000 ML IV SCH (08:30)
[2018-05-07] MEDS: INSULIN ASPART 100 UNITS/ML 3 ML PEN SC SCH ×4 (08:52→21:16)
[2018-05-07] MEDS: ASCORBIC ACID 500 MG TAB PO SCH ×2 (08:59→18:17)
[2018-05-07] MEDS: FERROUS GLUCONATE 324 MG TAB PO SCH ×2 (08:59→16:01)
[2018-05-07] MEDS: SITAGLIPTIN PHOSPHATE 25 MG TAB PO SCH (09:00)
[2018-05-07] MEDS: DOCUSATE SODIUM 100 MG CAP PO SCH ×2 (09:00→21:15)
[2018-05-07] MEDS: ASPIRIN 81 MG ECTAB PO SCH ×2 (09:00→21:15)
[2018-05-07] MEDS: AMLODIPINE BESYLATE 5 MG TAB PO SCH (09:01)
[2018-05-07] MEDS: MULTIVITAMIN TAB PO SCH (09:01)
[2018-05-07] MEDS: METOPROLOL SUCC 25MG EXT REL TAB PO SCH (09:02)
[2018-05-07] MEDS: DIGOXIN 0.25 MG TAB PO SCH (09:05)
[2018-05-07] MEDS: OXYCODONE HCL IR 5 MG TAB (IMMEDIATE RELEASE) PO PRN ×2 (09:08→22:21)
--- NOTE | 2018-05-07 13:38 | Hospitalist Progress Note ---
Date of Service May 07, 2018 Assessment & Plan (1) DMII (diabetes mellitus, type 2): Hold metformin; ok to continue januvia. continue novolog for meal coverage and highs; correction factor 45 with carb ratio 1:15. May need basal insulin as well but so far today bsgs seem well controlled T2DM diet; BSGs ac/hs. Adjust insulins as needed. Of note - preop a1c was 6.1%. (2) CHF (congestive heart failure): h/o "dilated cardiomyopathy" according to records but I cannot find an old echo in her scanned records or [place] [facility] itself. unknown EF. With that said I will assume her EF is preserved as she has not had problems with her CHF in nearly 3 years and does not take diuretics. I am surprised given her T2DM she does not take CHARLEEN or ARB. Continue beta philippe. Watch IVF intake cautiously. Uncertain as to why she takes digoxin -- h/o PAF?? other reason? Either way check digoxin level in am. If any issues with volume / CHF will order echo this admission. (3) Chronic kidney disease, stage III (moderate): creatinine is at baseline preop. avoid nephrotoxins where appropriate (4) Essential (primary) hypertension: Continue home meds with appropriate holds if needed. (5) ROLA (acute kidney injury): Creat 1.5 this morning - baseline 1.0 - will give another 1L NSS @ 100 and recheck prp am (6) DVT prophylaxis: per orthopedics - 81mg BID of aspirin x 1 month. Subjective Ms. Bertrand was up walking the halls with therapy. Sore knee but otherwise no complaints. Review of Systems All systems reviewed & are unremarkable except as noted in HPI & below Physical Exam Vital Signs (Past 24 Hours): Last Vital Signs Temp 36.4 C L 05/07/18 11:35 Pulse 63 05/07/18 11:35 Resp 16 05/07/18 11:35 BP 126/66 05/07/18 11:35 Pulse Ox 95 05/07/18 11:35 Physical Exam: Abnormal lab results 05/06/18 05/06/18 05/07/18 Range/Units 17:11 20:56 05:44 WBC 13.53 H (4.8-10.8) K/uL RBC 3.75 L (4.2-5.4) M/uL Hgb 11.2 L (12.0-16.0) g/dL Hct 33.9 L (37-47) % MPV 11.9 H (7.4-10.4) fL BUN (7-18) mg/dl Creatinine (0.6-1.2) mg/dl BUN/Creatinine Rat io (10-20) Glucose (70-99) mg/dl POC Glucose 186 H 238 H (70-99) Calcium (8.5-10.1) mg/dl 05/07/18 05/07/18 05/07/18 Range/Units 05:44 08:05 12:10 WBC (4.8-10.8) K/uL RBC (4.2-5.4) M/uL Hgb (12.0-16.0) g/dL Hct (37-47) % MPV (7.4-10.4) fL BUN 32 H (7-18) mg/dl Creatinine 1.51 H (0.6-1.2) mg/dl BUN/Creatinine Rat io 21.3 H (10-20) Glucose 114 H (70-99) mg/dl POC Glucose 109 H 153 H (70-99) Calcium 8.2 L (8.5-10.1) mg/dl Results & Data Laboratory Results Abnormal lab results 05/06/18 05/06/18 05/07/18 Range/Units 17:11 20:56 05:44 WBC 13.53 H (4.8-10.8) K/uL RBC 3.75 L (4.2-5.4) M/uL Hgb 11.2 L (12.0-16.0) g/dL Hct 33.9 L (37-47) % MPV 11.9 H (7.4-10.4) fL BUN (7-18) mg/dl Creatinine (0.6-1.2) mg/dl BUN/Creatinine Ratio (10-20) Glucose (70-99) mg/dl POC Glucose 186 H 238 H (70-99) Calcium (8.5-10.1) mg/dl 05/07/18 05/07/18 05/07/18 Range/Units 05:44 08:05 12:10 WBC (4.8-10.8) K/uL RBC (4.2-5.4) M/uL Hgb (12.0-16.0) g/dL Hct (37-47) % MPV (7.4-10.4) fL BUN 32 H (7-18) mg/dl Creatinine 1.51 H (0.6-1.2) mg/dl BUN/Creatinine Ratio 21.3 H (10-20) Glucose 114 H (70-99) mg/dl POC Glucose 109 H 153 H (70-99) Calcium 8.2 L (8.5-10.1) mg/dl (1) DMII (diabetes mellitus, type 2) Diabetes mellitus o[place] insulin use: without oysterman use Diabetes mellitus complication status: with ophthalmic complications Diabetes mellitus complication detail: with diabetic retinopathy Diabetic retinopathy severity: with unspecified retinopathy severity Diabetes mellitus macular edema: macular edema presence unspecified Laterality: bilateral Qualified Code(s): E11.319 - Type 2 diabetes mellitus with unspecified diabetic retinopathy without macular edema (2) CHF (congestive heart failure) Heart failure type: unspecified Heart failure chronicity: chronic Qualified Code(s): I50.9 - Heart failure, unspecified
[2018-05-07] MEDS: SENNA 8.6 MG TAB PO SCH (21:15)
[2018-05-07] MEDS: INSULIN GLARGINE SOLOSTAR 100 UNITS/ML 3 ML PEN SC SCH (21:16)
[2018-05-08] MEDS: ACETAMINOPHEN 500 MG TAB PO SCH ×2 (06:15→13:09)
[2018-05-08] MEDS: FERROUS GLUCONATE 324 MG TAB PO SCH (07:49)
[2018-05-08] MEDS: ASCORBIC ACID 500 MG TAB PO SCH (07:50)
[2018-05-08] MEDS: SITAGLIPTIN PHOSPHATE 25 MG TAB PO SCH (07:51)
[2018-05-08] MEDS: ASPIRIN 81 MG ECTAB PO SCH (07:51)
[2018-05-08] MEDS: DOCUSATE SODIUM 100 MG CAP PO SCH (07:51)
[2018-05-08] MEDS: MULTIVITAMIN TAB PO SCH (07:52)
[2018-05-08] MEDS: METOPROLOL SUCC 25MG EXT REL TAB PO SCH (07:52)
[2018-05-08] MEDS: AMLODIPINE BESYLATE 5 MG TAB PO SCH (07:53)
[2018-05-08] MEDS: OXYCODONE HCL IR 5 MG TAB (IMMEDIATE RELEASE) PO PRN ×2 (07:53→13:09)
[2018-05-08] MEDS: DIGOXIN 0.25 MG TAB PO SCH (07:55)
[2018-05-08] MEDS: INSULIN ASPART 100 UNITS/ML 3 ML PEN SC SCH ×2 (07:58→13:06)
[2018-05-08 08:23] LABS: BUN Creatinine Ratio 21.2 (10-20); Calcium 8.1 mg/dl (8.5-10.1); Creatinine Clr Calc Pharmacy 51.4 ml/min; Est GFR (African American) 74.5; Est GFR (Non-African American) 64.3; Potassium 3.6 mmol/L (3.5-5.1)
--- NOTE | 2018-05-08 09:40 | Orthopedic Progress Note ---
Date of Service May 08, 2018 Assessment & Plan (1) Status post right knee replacement: 77 yo female stable POD #2 s/p right TKA 1. Med management 2. DVT prophylaxis- ASA, SCDs 3. PT/OT 4. D/C planning- pt interested in [facility] today Subjective Pt resting in chair, pain controlled, denies complaints POD #2, doing well. Physical Exam Vital Signs (Past 24 Hours): Last Vital Signs Temp 37.3 C 05/08/18 06:51 Pulse 73 05/08/18 07:55 Resp 18 05/08/18 06:51 BP 151/70 H 05/08/18 06:51 Pulse Ox 93 05/08/18 06:51 Physical Exam: Right knee silverlon c/d/i, no drainage, no calf tenderness, toes and ankle mobile, A&Ox3.
--- NOTE | 2018-05-08 11:08 | Hospitalist Progress Note ---
Date of Service May 08, 2018 Assessment & Plan (1) DMII (diabetes mellitus, type 2): Hold metformin; ok to continue januvia. continue novolog for meal coverage and highs; correction factor 45 with carb ratio 1:15. T2DM diet; BSGs ac/hs. Adjust insulins as needed. Of note - preop a1c was 6.1%. (2) CHF (congestive heart failure): h/o "dilated cardiomyopathy" according to records but I cannot find an old echo in her scanned records or [facility] itself. unknown EF. assume her EF is preserved as she has not had problems with her CHF in nearly 3 years and does not take diuretics. consider CHARLEEN or ARB in the future as she is diabetic Continue beta philippe. Watch IVF intake cautiously. Uncertain as to why she takes digoxin -- h/o PAF?? other reason? Digoxin level was 1.0 (3) Chronic kidney disease, stage III (moderate): creatinine elevated 05/08, given 1L IVF, wnl limits today (4) Essential (primary) hypertension: Continue home meds with appropriate holds if needed. (5) ROLA (acute kidney injury): Creat 1.5 pod #1 - baseline 1.0 - wnl following 1L NSS administration (6) DVT prophylaxis: per orthopedics - 81mg BID of aspirin x 1 month. Subjective Ms. Bertrand feels good today. No complaintes, looking forward to discharge Review of Systems All systems reviewed & are unremarkable except as noted in HPI & below Physical Exam Vital Signs (Past 24 Hours): Last Vital Signs Temp 37.3 C 05/08/18 10:09 Pulse 67 05/08/18 10:09 Resp 18 05/08/18 10:09 BP 151/70 H 05/08/18 10:09 Pulse Ox 93 05/08/18 10:09 Physical Exam: General: no distress Eyes: normal inspection, PERLL Respiratory: chest non tender, clear to auscultation, normal breath sounds, no respiratory distress, no accessory muscle use Cardiac: regular rate and rhythm, no rub or gallop, no murmur, no edema, no jvd GI/: active bowel sounds, no abd pain or tenderness, soft, non distended Extremities: normal range of motion, normal strength, non tender Neuro/Psych: alert and oriented x 3, normal mood and affect Skin: normal color, dry Results & Data Laboratory Results Abnormal lab results 05/07/18 05/07/18 05/07/18 Range/Units 12:10 17:14 20:47 Sodium (136-145) mmol/L BUN/Creatinine Ratio (10-20) Glucose (70-99) mg/dl POC Glucose 153 H 209 H 142 H (70-99) Calcium (8.5-10.1) mg/dl 05/08/18 05/08/18 Range/Units 06:48 07:09 Sodium 134 L (136-145) mmol/L BUN/Creatinine Ratio 21.2 H (10-20) Glucose 130 H (70-99) mg/dl POC Glucose 127 H (70-99) Calcium 8.1 L (8.5-10.1) mg/dl (1) DMII (diabetes mellitus, type 2) Diabetes mellitus [id number] tank crewman insulin use: without longterm use Diabetes mellitus complication status: with ophthalmic complications Diabetes mellitus complication detail: with diabetic retinopathy Diabetic retinopathy severity: with unspecified retinopathy severity Diabetes mellitus macular edema: macular edema presence unspecified Laterality: bilateral Qualified Code(s): E11.319 - Type 2 diabetes mellitus with unspecified diabetic retinopathy without macular edema (2) CHF (congestive heart failure) Heart failure type: unspecified Heart failure chronicity: chronic Qualified Code(s): I50.9 - Heart failure, unspecified
--- NOTE | 2018-05-10 10:02 | Discharge Summary ---
Date of Service May 14, 2018 Discharge Data Consultations 05/06/18 10:58 Consult Case Management - Discharge Planning Routine Consult Hospitalist Routine Procedures Performed Operation Date: 05/06/18 07:00 Actual Procedures p Right Total Knee Arthroplasty(Right) - Kai Carbajal MD Operation Date: 05/06/18 13:10 <No data on this case meets the specified criteria>
--- NOTE | 2018-05-12 19:05 | Discharge Summary ---
CHIEF COMPLAINT: Right knee pain. Please see complete history and physical examination. HOSPITAL COURSE: The patient underwent right total knee arthroplasty without complication. She tolerated the procedure well and was discharged to recovery room in stable condition. Her postoperative course was relatively uneventful. Her postoperative pain was reasonably well controlled with a combination of spinal anesthesia, adductor canal block, intraoperative joint injection, IV, and oral pain medications. She was started on aspirin for DVT prophylaxis. She also utilized TEODORO stockings and SCDs for additional prophylaxis. Her H&H was stable and did not require transfusion. A medical consult was asked for to assist in her postoperative medical management. The patient did not have any significant postoperative medical issues. Her surgical dressing and drain were discontinued on postoperative day 2. New surgical dressing will remain in place for approximately 7 days postoperative. She tolerated postoperative physical therapy reasonably well where she was ambulating and bending her knee appropriately. She was transferred to [facility] on postoperative day 2. She will continue her physical therapy there. She will continue her aspirin for DVT prophylaxis and follow up in our office in approximately 10-14 days for her initial postop evaluation.
== END 2018-05-08 13:53 | DRG 470 ==
LOC: ASU 04:52 → 3W 08:40
DX: I13.0 Hypertensive heart and chronic kidney disease with heart failure and stage 1 through stage 4 chronic kidney disease, or unspecified chronic kidney disease; Z79.82 Long term (current) use of aspirin; M21.161 Varus deformity, not elsewhere classified, right knee; I50.9 Heart failure, unspecified; Z96.642 Presence of left artificial hip joint; N18.3 Chronic kidney disease, stage 3 (moderate); E11.22 Type 2 diabetes mellitus with diabetic chronic kidney disease; T38.0X5A Adverse effect of glucocorticoids and synthetic analogues, initial encounter; Z79.899 Other long term (current) drug therapy; N17.9 Acute kidney failure, unspecified; Z79.84 Long term (current) use of oral hypoglycemic drugs; M17.0 Bilateral primary osteoarthritis of knee; E11.3311 Type 2 diabetes mellitus with moderate nonproliferative diabetic retinopathy with macular edema, right eye; E11.65 Type 2 diabetes mellitus with hyperglycemia; I42.0 Dilated cardiomyopathy

== ENCOUNTER 2020-09-14 00:46 | Inpatient (IN) ==
--- NOTE | 2020-09-14 00:58 | Emergency Department Note ---
Impression & Plan Closed fracture of right hip, Fall ED Provider Note Name: MANUELA RIVERA Age: 79 Sex: F Arrives Via: Ambulance Informant: Patient, EMS, Daughter ED Provider: Gurpreet Baker MD Chief Complaint: right hip pain Impression: See Above Medical Decision Makin yr old female with history left hip fx w repair and right knee replacement along with some medical issues arrives after mechanical trip & fall this evening at home. EMS gave fentanyl with good improvement. She is awake, alert & oriented without headache nor neck pain and is not on blood thinners. She has clear evidence right hip/femur fracture on xrays. Labs are unremarkable. She was kept comfortable and patient admitted to hospitalist for further management Prior Medical Record and Triage/Nursing Notes reviewed by Me Additional history obtained from chart Differentials:Fracture, dislocation, contusion, intra-abdominal, pneumothorax, intrathoracic, intracranial, neurologic, compartment syndrome, rhabdomyolysis, as well as other pathologies. Vital Signs: reviewed and remarkable for HTN Interventions: saline lock, dilaudid 0.5mg IV Labs:Reviewed and remarkable for no significant abnormalities Imaging:X ray results are stated below per my interpretation: Chest: 1 view: No infiltrate, no effusion, normal cardiac border. Pelvis with right femur: comminuted mildly angulated right proximal femur/intertroch fracture EKG:Per My Interpretation: Indication Pre Op: NSR 70 bpm, qtc 486. No Ectopy. No Ischemia. Compared to EKG 04/27/18, no significant changes. Consults:Dr Mahendra [facility] Hospitalist Plan: Disposition:Hospitalization. Condition: Good History of Present Illness:79 yr old female arrives for evaluation of right hip pain. Patient tripped and fell in the bathroom this evening. Notes immediate pain in right hip where she fell. Denies syncope, sob, nor pre-fall symptoms. She denies head injury, headache, neck pain, cp, sob, syncope, nausea, vomiting, focal weakness, fevers, chills, urinary/bowel symptoms, leg swelling, nor other symptoms. No recent bleeding/bruising. She does not take blood thinners. Previous left hip fracture and right knee surgery done by [facility] surgeon. She notes pain with trying to move right leg. Better with laying still. 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 ROS: See above HPI for pertinent positives & negatives. A total of 10 systems reviewed and were otherwise negative. Past Medical History:See Below Past Surgical History:See Below Family History:See Below Social History:See Below Home Medications:See Below Allergies:NKDA Vitals:Blood Pressure: 163/83, Pulse 77, RR 16, T 3.4C, O2 97% on 2LNC Physical Exam: GENERAL: Patient is uncomfortable appearing and in mild distress. EYES: No scleral icterus, unremarkable pupils. ENT: Mucous membranes moist, no nasal congestion. NECK: No masses appreciated, nomeningismus, trachea is midline. RESPIRATORY: No dyspnea. Clear to auscultation and equal bilaterally. No wheeze, no rhonchi. CARDIOVASCULAR: Regular rate and rhythm.No murmurs, rubs, gallops appreciated. GASTROINTESTINAL: Abdomen soft, non-tender, no peritonitis.Bowel sounds positive.No masses appreciated. BACK: No midline tenderness, no CVA tenderness EXTREMITIES: Shortened externally rotated right leg with swelling proximal femur. Distal n/v intact. Otherwise normal motion all extremities, no cyanosis, no edema. NEUROLOGIC: Alert and oriented, no acute motor or sensory deficits, no focal weakness, cranial nerves grossly intact. SKIN: No rash, no jaundice, no diaphoresis. 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 HAS HAD 2 SURGERIES FOR THIS Retinal tear of both eyes Surgical History (Updated 05/07/18 @ 08:00 by Artie Aquino) History of cholecystectomy History of eye surgery LASER EYE SURGERY X2 History of hernia surgery UMBILICAL History of hip surgery LEFT BIPOLAR HEMIARTHROPLASTY following hip fracture History of tonsillectomy and adenoidectomy Family History (Updated 05/06/18 @ 11:41 by Elpidio Linder) Mother Diabetes Renal failure Social History (Updated 05/06/18 @ 11:42 by Elpidio Linder) Smoking Status: Never smoker Hx Alcohol Use: No Hx Substance Use: No Preferred Language: Surinamese Communication Ability: Effective Clothes Separator Required: No Beliefs That Will Affect Care: None marital status details: , had been twice previously; 8 kids in total. 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 Feels Safe at Home: Yes Assistive Devices: Glasses and Walker Allergies Allergies Allergy/AdvReac Type Severity Reaction Status Date / Time No Known Allergies Allergy Verified 09/14/20 01:23 Home Meds Home Medications Medication Instructions Recorded Confirmed amlodipine 10 mg tablet (Norvasc) 10 mg PO QAM 04/21/18 09/14/20 docusate sodium 100 mg capsule 100 mg PO DAILY 04/21/18 09/14/20 (Colace) lidocaine 5 % topical patch 2 patch TOPICAL QAM 04/21/18 09/14/20 metformin 500 mg tablet 500 mg PO BID 04/21/18 09/14/20 metoprolol succinate 25 mg 25 mg PO QAM 04/21/18 09/14/20 tablet,extended release 24 hr (Toprol XL) sitagliptin 50 mg tablet (Januvia) 50 mg PO QAM 04/21/18 09/14/20 aspirin 81 mg tablet,delayed 81 mg PO DAILY 09/14/20 09/14/20 release atorvastatin 10 mg tablet 10 mg PO HS 09/14/20 09/14/20 Results & Data (ED) Vital Signs Vital Signs - 24 hr 09/14/20 00:54 09/14/20 00:56 Temperature 36.4 C L Temperature Source Oral Pulse Rate 72 74 Pulse Rhythm Regular Respiratory Rate 18 18 Respiratory Effort / Characteristics Non-Labored Blood Pressure 150/82 H Blood Pressure Mean 104 Blood Pressure Position Lying Pulse Oximetry 99 99 Oxygen Delivery Method Nasal Cannula Nasal Cannula Oxygen Flow Rate 2 2 Sepsis Recent Fever Within 48 Hours No Sepsis New/Unexplained Change in Mental Status No Sepsis Action Taken by Nursing No Action Required Laboratory Data Result diagrams: 09/14/20 01:29 09/14/20 01:28 Lab Results 09/14/20 09/14/20 09/14/20 Range/Units 01:28 01:28 01:28 WBC (4.8-10.8) K/uL RBC (4.2-5.4) M/uL Hgb (12.0-16.0) g/dL Hct (37-47) % MCV (80-100) fL MCH (25-34) pg MCHC (32-36) g/dL RDW Std Deviation (36.4-46.3) fL RDW Coeff of Atiya (11.5-14.5) % Plt Count (130-400) K/uL MPV (7.4-10.4) fL Immature Gran % (Auto) % Neut % (Auto) % Lymph % (Auto) % [place] % (Auto) % Eos % (Auto) % Baso % (Auto) % Neut # (Auto) (1.4-6.5) K/uL Lymph # (Auto) (1.2-3.4) K/uL [place] # (Auto) (0.11-0.59) K/uL Eos # (Auto) (0-0.5) K/uL Baso # (Auto) (0-0.2) K/uL Immature Gran # (Auto) (0.00-0.02) K/uL PT 10.2 (9.0-12.0) Seconds INR 1.0 (0.9-1.1) APTT 24.1 (21.0-31.0) Seconds PTT Ratio 0.9 Sodium 139 (136-145) mmol/L Potassium 4.0 (3.5-5.1) mmol/L Chloride 109 H (98-107) mmol/L Carbon Dioxide 28 (21-32) mmol/L Anion Gap 2.0 L (3-11) BUN 27 H (7-18) mg/dl Creatinine 1.37 H (0.6-1.2) mg/dl Est Cr Clr Drug Dosing Not Reportable Est GFR ( Amer) 41.8 ml/min Est GFR (Non-Af Amer) 36.1 ml/min BUN/Creatinine Ratio 19.8 (10-20) Glucose 167 H (70-99) mg/dl Calcium 8.1 L (8.5-10.1) mg/dl Total Bilirubin 0.3 (0.2-1) mg/dl AST 14 L (15-37) U/L ALT 17 (12-78) U/L Alkaline Phosphatase 74 (45-117) U/L Total Protein 6.3 L (6.4-8.2) gm/dl Albumin 3.2 L (3.4-5.0) gm/dl Globulin 3.1 (2.5-4.0) gm/dl Albumin/Globulin Ratio 1.0 (0.9-2) Urine Color Urine Appearance (Clear) Urine pH (4.5-7.5) Ur Specific [place] (1.000-1.030) Urine Protein (Negative) Urine Glucose (UA) (Negative) Urine Ketones (Negative) Urine Blood (Negative) Urine Nitrite (Negative) Urine Bilirubin (Negative) Urine Urobilinogen (Negative) Ur Leukocyte Esterase (Negative) Urine WBC (Auto) (0-5) /hpf Urine RBC (Auto) (0-4) /hpf U Hyaline Cast (Auto) (0-5) /lpf U Epithel Cells (Auto) (0-5) /lpf Urine Bacteria (Auto) (Negative) Digoxin < 0.1 L (0.8-2.0) ng/ml COVID-19 Eval Order SARS-CoV-2 (PCR) (Negative) Blood Type Antibody Screen 09/14/20 09/14/20 09/14/20 Range/Units 01:29 01:29 01:40 WBC 7.22 (4.8-10.8) K/uL RBC 4.16 L (4.2-5.4) M/uL Hgb 12.3 (12.0-16.0) g/dL Hct 38.3 (37-47) % MCV 92.1 (80-100) fL MCH 29.6 (25-34) pg MCHC 32.1 (32-36) g/dL RDW Std Deviation 44.8 (36.4-46.3) fL RDW Coeff of Atiya 13.3 (11.5-14.5) % Plt Count 153 (130-400) K/uL MPV 11.8 H (7.4-10.4) fL Immature Gran % (Auto) 0.3 % Neut % (Auto) 78.9 % Lymph % (Auto) 12.3 % [place] % (Auto) 6.6 % Eos % (Auto) 1.5 % Baso % (Auto) 0.4 % Neut # (Auto) 5.69 (1.4-6.5) K/uL Lymph # (Auto) 0.89 L (1.2-3.4) K/uL [place] # (Auto) 0.48 (0.11-0.59) K/uL Eos # (Auto) 0.11 (0-0.5) K/uL Baso # (Auto) 0.03 (0-0.2) K/uL Immature Gran # (Auto) 0.02 (0.00-0.02) K/uL PT (9.0-12.0) Seconds INR (0.9-1.1) APTT (21.0-31.0) Seconds PTT Ratio Sodium (136-145) mmol/L Potassium (3.5-5.1) mmol/L Chloride (98-107) mmol/L Carbon Dioxide (21-32) mmol/L Anion Gap (3-11) BUN (7-18) mg/dl Creatinine (0.6-1.2) mg/dl Est Cr Clr Drug Dosing Est GFR ( Amer) ml/min Est GFR (Non-Af Amer) ml/min BUN/Creatinine Ratio (10-20) Glucose (70-99) mg/dl Calcium (8.5-10.1) mg/dl Total Bilirubin (0.2-1) mg/dl AST (15-37) U/L ALT (12-78) U/L Alkaline Phosphatase (45-117) U/L Total Protein (6.4-8.2) gm/dl Albumin (3.4-5.0) gm/dl Globulin (2.5-4.0) gm/dl Albumin/Globulin Ratio (0.9-2) Urine Color Yellow Urine Appearance Clear (Clear) Urine pH 7.0 (4.5-7.5) Ur Specific [place] 1.014 (1.000-1.030) Urine Protein Negative (Negative) Urine Glucose (UA) Negative (Negative) Urine Ketones Negative (Negative) Urine Blood 1+ H (Negative) Urine Nitrite Negative (Negative) Urine Bilirubin Negative (Negative) Urine Urobilinogen Negative (Negative) Ur Leukocyte Esterase 1+ H (Negative) Urine WBC (Auto) 10-30 H (0-5) /hpf Urine RBC (Auto) 5-10 H (0-4) /hpf U Hyaline Cast (Auto) 0 (0-5) /lpf U Epithel Cells (Auto) >30 H (0-5) /lpf Urine Bacteria (Auto) Negative (Negative) Digoxin (0.8-2.0) ng/ml COVID-19 Eval Order SARS-CoV-2 (PCR) (Negative) Blood Type A Positive Antibody Screen NEGATIVE 09/14/20 09/14/20 Range/Units 02:25 02:25 WBC (4.8-10.8) K/uL RBC (4.2-5.4) M/uL Hgb (12.0-16.0) g/dL Hct (37-47) % MCV (80-100) fL MCH (25-34) pg MCHC (32-36) g/dL RDW Std Deviation (36.4-46.3) fL RDW Coeff of Atiya (11.5-14.5) % Plt Count (130-400) K/uL MPV (7.4-10.4) fL Immature Gran % (Auto) % Neut % (Auto) % Lymph % (Auto) % [place] % (Auto) % Eos % (Auto) % Baso % (Auto) % Neut # (Auto) (1.4-6.5) K/uL Lymph # (Auto) (1.2-3.4) K/uL [place] # (Auto) (0.11-0.59) K/uL Eos # (Auto) (0-0.5) K/uL Baso # (Auto) (0-0.2) K/uL Immature Gran # (Auto) (0.00-0.02) K/uL PT (9.0-12.0) Seconds INR (0.9-1.1) APTT (21.0-31.0) Seconds PTT Ratio Sodium (136-145) mmol/L Potassium (3.5-5.1) mmol/L Chloride (98-107) mmol/L Carbon Dioxide (21-32) mmol/L Anion Gap (3-11) BUN (7-18) mg/dl Creatinine (0.6-1.2) mg/dl Est Cr Clr Drug Dosing Est GFR ( Amer) ml/min Est GFR (Non-Af Amer) ml/min BUN/Creatinine Ratio (10-20) Glucose (70-99) mg/dl Calcium (8.5-10.1) mg/dl Total Bilirubin (0.2-1) mg/dl AST (15-37) U/L ALT (12-78) U/L Alkaline Phosphatase (45-117) U/L Total Protein (6.4-8.2) gm/dl Albumin (3.4-5.0) gm/dl Globulin (2.5-4.0) gm/dl Albumin/Globulin Ratio (0.9-2) Urine Color Urine Appearance (Clear) Urine pH (4.5-7.5) Ur Specific [place] (1.000-1.030) Urine Protein (Negative) Urine Glucose (UA) (Negative) Urine Ketones (Negative) Urine Blood (Negative) Urine Nitrite (Negative) Urine Bilirubin (Negative) Urine Urobilinogen (Negative) Ur Leukocyte Esterase (Negative) Urine WBC (Auto) (0-5) /hpf Urine RBC (Auto) (0-4) /hpf U Hyaline Cast (Auto) (0-5) /lpf U Epithel Cells (Auto) (0-5) /lpf Urine Bacteria (Auto) (Negative) Digoxin (0.8-2.0) ng/ml COVID-19 Eval Order Covid19 at [facility] SARS-CoV-2 (PCR) NEGATIVE (Negative) Blood Type Antibody Screen Administered Medications Discontinued Medications Hydromorphone HCl (Hydromorphone Inj 0.5 Mg/0.5 Ml Syr) 0.5 mg IV Q20M PRN PRN Reason: Moderate Pain (Rating 3,4,5,6) Stop: 09/28/20 00:55 Last Admin: 09/14/20 05:33 Dose: 0.5 mg Documented by: [id number] Admin: 09/14/20 03:16 Dose: 0.5 mg Documented by: [id number] Admin: 09/14/20 02:00 Dose: 0.5 mg Documented by: [id number] Discharge Plan Visit Data Chief Complaint: Fall Stated Complaint: FALL/POSSIBLE HIP FRACTURE ED Provider: Gurpreet Baker Discharge Problem: Closed fracture of right hip, Fall Patient Disposition: Admitted As Inpatient Discharge Instructions Interventions: ED Discharge Assessment Last Done: 09/14/20 05:25 Discharge Problem: Closed fracture of right hip Qualifiers: Encounter type: initial encounter Qualified Code(s): S72.001A - Fracture of unspecified part of neck of right femur, initial encounter for closed fracture Fall Qualifiers: Encounter type: initial encounter Qualified Code(s): W19.XXXA - Unspecified fall, initial encounter
[2020-09-14 01:39] LABS: Basophils # (auto) 0.03 K/uL (0-0.2); Basophils % (auto) 0.4 %; Eosinophils # (auto) 0.11 K/uL (0-0.5); Eosinophils % (auto) 1.5 %; Hematocrit (blood only) 38.3 % (37-47); Hemoglobin 12.3 g/dL (12.0-16.0); Immature Granulocytes # (auto) 0.02 K/uL (0.00-0.02); Immature Granulocytes % (auto) 0.3 %; Lymphocytes # (auto) 0.89 K/uL (1.2-3.4); Lymphocytes % (auto) 12.3 %; Mean Corpuscular Hemoglobin 29.6 pg (25-34); Mean Corpuscular Hgb Conc 32.1 g/dL (32-36); Mean Corpuscular Volume 92.1 fL (80-100); Mean Platelet Volume 11.8 fL (7.4-10.4); Monocytes # (auto) 0.48 K/uL (0.11-0.59); Monocytes % (auto) 6.6 %; Neutrophils # (auto) 5.69 K/uL (1.4-6.5); Neutrophils % (auto) 78.9 %; Platelet Count 153 K/uL (130-400); RDW Coefficient of Variation 13.3 % (11.5-14.5); RDW Standard Deviation 44.8 fL (36.4-46.3); Red Blood Count 4.16 M/uL (4.2-5.4); White Blood Count 7.22 K/uL (4.8-10.8)
[2020-09-14 01:55] LABS: Alanine Aminotransferase 17 U/L (12-78); Albumin Level 3.2 gm/dl (3.4-5.0); Aspartate Aminotransferase 14 U/L (15-37); BUN Creatinine Ratio 19.8 (10-20); Blood Urea Nitrogen 27 mg/dl (7-18); Calcium 8.1 mg/dl (8.5-10.1); Carbon Dioxide 28 mmol/L (21-32); Chloride 109 mmol/L (98-107); Est GFR (African American) 41.8 ml/min; Est GFR (Non-African American) 36.1 ml/min; Glucose 167 mg/dl (70-99); Sodium 139 mmol/L (136-145)
[2020-09-14 01:57] LABS: Partial Thromboplastin Ratio 0.9; Partial Thromboplastin Time 24.1 Seconds (21.0-31.0); Prothrombin Time 10.2 Seconds (9.0-12.0)
[2020-09-14 01:57] LABS: Appearance Urine Clear (Clear); Bacteria Urine Automated Negative (Negative); Bilirubin Urine Negative (Negative); Blood Urine 1+ (Negative); Cast Urine Automated 0 /lpf (0-5); Color Urine Yellow; Epithelial Cell Urine Auto >30 /lpf (0-5); Glucose Urine UA Negative (Negative); Ketones Urine Negative (Negative); Leukocyte Esterase Urine 1+ (Negative); Nitrite Urine Negative (Negative); Protein Urine Negative (Negative); Specific Gravity Urine 1.014 (1.000-1.030); Urobilinogen Urine Negative (Negative)
[2020-09-14 01:58] LABS: Alkaline Phosphatase 74 U/L (45-117); Bilirubin,Total 0.3 mg/dl (0.2-1); Globulin 3.1 gm/dl (2.5-4.0); Total Protein 6.3 gm/dl (6.4-8.2)
[2020-09-14] MEDS: HYDROmorphone INJ 0.5 MG/0.5 ML SYR IV PRN ×3 (02:00→05:33)
--- NOTE | 2020-09-14 02:52 | History & Physical Report ---
Date of Service September 14, 2020 Assessment & Plan (1) Closed right hip fracture: Plan: Closed right hip fracture- NPO Geriatric hip fracture protocol order set IV fluids [place] 5/325, 1 p.o. every 6 hours as needed moderate pain [place] 5/325, 2 p.o. every 6 hours as needed severe pain Dilaudid 0.25 mg IV every 3 hours as needed moderate pain Dilaudid 0.5 mg IV every 3 hours as needed severe pain Zofran 4 mg IV every 6 hours as needed Patient's previous surgery done by Dr. Carbajal. Consult [facility] surgery Dr. Remy (2) Acute kidney injury superimposed on CKD: Plan: Creatinine 1.37 upon admission, with recent 0.86 Placed on NSS at 80 mils per hour Repeat laboratories in a.m. (3) Essential (primary) hypertension: Plan: Hypertension/CHF- Hold amlodipine, aspirin. Continue metoprolol succinate 25 mg every morning (4) CHF (congestive heart failure): Plan: See above (5) DMII (diabetes mellitus, type 2): Plan: Hold Januvia and Metformin Placed on Accu-Cheks before meals and at bedtime with NovoLog coverage per scale History of Present Illness Chief Complaint: The patient is brought to the emergency department via ambulance after having a fall onto her right hip, sustaining severe pain immediately, and inability to ambulate Primary Care Provider: Teodoro Ragland M.D. The patient is an 79-year-old female with a past medical history including right TKA, left COSME, hypertension, CKD stage III, CHF, diabetes mellitus type 2 and osteoarthritis. She is brought to the emergency department for assessment right hip pain after a mechanical fall where she tripped and fell in her bathroom earlier in the evening. She denies any head injury neck injury or any other associated symptoms from falling. X-ray performed in the ED showed a closed right hip fracture. Pertinent laboratories include creatinine 1.37, glucose 167, and albumin 3.2 Allergies Allergy/AdvReac Type Severity Reaction Status Date / Time No Known Allergies Allergy Verified 09/14/20 01:23 Home Medications Medication Instructions Recorded Confirmed Type amlodipine 10 mg tablet (Norvasc) 10 mg PO QAM 04/21/18 09/14/20 History docusate sodium 100 mg capsule 100 mg PO DAILY 04/21/18 09/14/20 History (Colace) lidocaine 5 % topical patch 2 patch TOPICAL QAM 04/21/18 09/14/20 History metformin 500 mg tablet 500 mg PO BID 04/21/18 09/14/20 History metoprolol succinate 25 mg 25 mg PO QAM 04/21/18 09/14/20 History tablet,extended release 24 hr (Toprol XL) sitagliptin 50 mg tablet (Januvia) 50 mg PO QAM 04/21/18 09/14/20 History aspirin 81 mg tablet,delayed 81 mg PO DAILY 09/14/20 09/14/20 History release atorvastatin 10 mg tablet 10 mg PO HS 09/14/20 09/14/20 History Past Med/Surg History Medical History (Updated 09/14/20 @ 05:09 by Aj Mccray MD) Bone spur RIGHT KNEE Diabetes 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 associated with diabetes mellitus due to underlying condition Dilated cardiomyopathy Hernia "LEFT SIDE" of abdomen History of CHF (congestive heart failure) Hypertension Moderate nonproliferative diabetic retinopathy Osteoarthritis 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 HAS HAD 2 SURGERIES FOR THIS Retinal tear of both eyes Surgical History (Updated 05/07/18 @ 08:00 by Artie Aquino) History of cholecystectomy History of eye surgery LASER EYE SURGERY X2 History of hernia surgery UMBILICAL History of hip surgery LEFT BIPOLAR HEMIARTHROPLASTY following hip fracture History of tonsillectomy and adenoidectomy Family History (Updated 05/06/18 @ 11:41 by Elpidio Linder) Mother Diabetes Renal failure Social History (Updated 05/06/18 @ 11:42 by Elpidio Linder) Smoking Status: Never smoker Hx Alcohol Use: No Hx Substance Use: No Preferred Language: Frisian Communication Ability: Effective Model And Mold Maker Required: No Beliefs That Will Affect Care: None marital status details: , had been twice previously; 8 kids in total. 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 Feels Safe at Home: Yes Assistive Devices: Glasses and Walker Review of Systems Review of Systems: The patient denies chest pain, palpitations, shortness of breath, dyspnea on exertion, cough, lower extremity swelling, sore throat, fevers, chills, sweats, nausea, vomiting, diarrhea , constipation, abdominal pain, pelvic pain, blood in urine or stool, dysuria, urinary frequency or urgency, lightheadedness, dizziness, headache, memory loss, loss of consciousness, rash, abnormal bruising or bleeding, focal weakness, numbness or tingling in arms, generalized arthralgias or myalgias, back or neck pain, or night sweats. The review of systems is otherwise negative other than for that already noted above, and at least 10 systems have been reviewed. Physical Exam Physical Exam: The patient is awake, alert and oriented 3, normocephalic and atraumatic, lying in bed and in no acute distress. HEENT--PERRL, EOMI, mucous membranes and oropharynx dry. Neck--supple. No JVD. No bruits. Thyroid normal, trachea midline, no adenopathy. Heart--normal S1 and S2. No murmurs, rubs or gallops. Lungs--clear bilaterally, no respiratory distress, no accessory muscle use. Abdomen--normal bowel sounds and soft. Nontender. Nondistended. Obese. Extremities--no cyanosis or clubbing. No edema. There are good distal pulses b/l. Dermatologic--normal skin turgor, normal color, no abnormal lymph nodes, no rash. Neurologic--cranial nerves II through XII grossly intact. Rheumatologic--limited exam due to right hip pain Psychiatric--normal affect. Results & Data Results & Data ([facility]) Vital Signs (Past 12 Hours) Vital Signs Temp Pulse Resp BP Pulse Ox 09/14/20 00:56 74 18 99 09/14/20 00:54 97.5 F L 72 18 150/82 H 99 Laboratory Results Laboratory Results WBC 7.22 K/uL (4.8-10.8) 09/14/20 01: RBC 4.16 M/uL (4.2-5.4) L 09/14/20 01:29 Hgb 12.3 g/dL (12.0-16.0) 09/14/20 01: Hct 38.3 % (37-47) 09/14/20 01:29 MCV 92.1 fL (80-100) 09/14/20 01: MCH 29.6 pg (25-34) 09/14/20 01: MCHC 32.1 g/dL (32-36) 09/14/20: RDW Std Deviation 44.8 fL (36.4-46.3) 09/14/20 01: RDW Coeff of Atiya 13.3 % (11.5-14.5) 09/14/20 01: Plt Count 153 K/uL (130-400) 09/14/20 01:29 MPV 11.8 fL (7.4-10.4) H 09/14/20 01: Immature Gran % (Auto) 0.3 % 09/14/20 01: Neut % (Auto) 78.9 % 09/14/20 01: Lymph % (Auto) 12.3 % 09/14/20 01: [place] % (Auto) 6.6 % 09/14/20 01: Eos % (Auto) 1.5 % 09/14/20 01: Baso % (Auto) 0.4 % 09/14/20 01: Neut # (Auto) 5.69 K/uL (1.4-6.5) 09/14/20 01: Lymph # (Auto) 0.89 K/uL (1.2-3.4) L 09/14/20 01:29 [place] # (Auto) 0.48 K/uL (0.11-0.59) 09/14/20 01: Eos # (Auto) 0.11 K/uL (0-0.5) 09/14/20 01: Baso # (Auto) 0.03 K/uL (0-0.2) 09/14/20 01: Immature Gran # (Auto) 0.02 K/uL (0.00-0.02) 09/14/20 01: PT 10.2 Seconds (9.0-12.0) 09/14/20 01: INR 1.0 (0.9-1.1) 09/14/20 01: APTT 24.1 Seconds (21.0-31.0) 09/14/20 01: PTT Ratio 0.9 09/14/20 01:28 Sodium 139 mmol/L (136-145) 09/14/20 01:28 Potassium 4.0 mmol/L (3.5-5.1) 09/14/20 01:28 Chloride 109 mmol/L (98-107) H 09/14/20 01:28 Carbon Dioxide 28 mmol/L (21-32) 09/14/20 01:28 Anion Gap 2.0 (3-11) L 09/14/20 01:28 BUN 27 mg/dl (7-18) H 09/14/20 01:28 Creatinine 1.37 mg/dl (0.6-1.2) H 09/14/20 01:28 Est Cr Clr Drug Dosing Not Reportable 09/14/20 01:28 Est GFR ( Amer) 41.8 ml/min 09/14/20 01:28 Est GFR (Non-Af Amer) 36.1 ml/min 09/14/20 01:28 BUN/Creatinine Ratio 19.8 (10-20) 09/14/20 01:28 Glucose 167 mg/dl (70-99) H 09/14/20 01:28 Calcium 8.1 mg/dl (8.5-10.1) L 09/14/20 01:28 Total Bilirubin 0.3 mg/dl (0.2-1) 09/14/20 01:28 AST 14 U/L (15-37) L 09/14/20 01:28 ALT 17 U/L (12-78) 09/14/20 01:28 Alkaline Phosphatase 74 U/L (45-117) 09/14/20 01:28 Total Protein 6.3 gm/dl (6.4-8.2) L 09/14/20 01:28 Albumin 3.2 gm/dl (3.4-5.0) L 09/14/20 01:28 Globulin 3.1 gm/dl (2.5-4.0) 09/14/20 01:28 Albumin/Globulin Ratio 1.0 (0.9-2) 09/14/20 01:28 Urine Color Yellow 09/14/20 01:40 Urine Appearance Clear (Clear) 09/14/20 01:40 Urine pH 7.0 (4.5-7.5) 09/14/20 01:40 Ur Specific [place] 1.014 (1.000-1.030) 09/14/20 01:40 Urine Protein Negative (Negative) 09/14/20 01:40 Urine Glucose (UA) Negative (Negative) 09/14/20 01:40 Urine Ketones Negative (Negative) 09/14/20 01:40 Urine Blood 1+ (Negative) H 09/14/20 01:40 Urine Nitrite Negative (Negative) 09/14/20 01:40 Urine Bilirubin Negative (Negative) 09/14/20 01:40 Urine Urobilinogen Negative (Negative) 09/14/20 01:40 Ur Leukocyte Esterase 1+ (Negative) H 09/14/20 01:40 Urine WBC (Auto) 10-30 /hpf (0-5) H 09/14/20 01:40 Urine RBC (Auto) 5-10 /hpf (0-4) H 09/14/20 01:40 U Hyaline Cast (Auto) 0 /lpf (0-5) 09/14/20 01:40 U Epithel Cells (Auto) >30 /lpf (0-5) H 09/14/20 01:40 Urine Bacteria (Auto) Negative (Negative) 09/14/20 01:40 Digoxin < 0.1 ng/ml (0.8-2.0) L 09/14/20 01:28 COVID-19 Eval Order Covid19 at [facility] 09/14/20 02:25 SARS-CoV-2 (PCR) NEGATIVE (Negative) 09/14/20 02:25 Blood Type A Positive 09/14/20 01:29 Antibody Screen NEGATIVE 09/14/20 01:29 ECG Additional Comments: MANUELA RIVERA ID:[id number] 14-SEP-2020 02:11:44 [facility]- EDSTAT ROUTINE RETRIEVAL Normal sinus rhythm Normal ECG When compared with ECG of 27-APR-2018 15:04, QT has lengthened 25mm/s 10mm/mV 150Hz 9.0.9 12SL 241 SANDHYA: 15 Referred by: REFERRED SELF Unconfirmed Vent. rate 70 BPM ND interval 198 ms QRS duration 80 ms QT/QTc 450/486 ms P-R-T axes 64 30 73 1940 (79 yr) Female 100in 5lb Room: Loc:15 [employer]: 936 T Code Status & VTE Plan Code Status Full code VTE Prophylaxis Plan VTE Prophylaxis will be ordered: Yes PG Care Time/CCT Total # of Minutes Spent Total Time Spent with Patient: Total time spent is greater than 50% in coordination of care (as documented) at patient's floor/unit and/or counseling patient: Coding Level of Care Code 72215 Initial Inpt Care Lvl 3 Diagnoses Closed right hip fracture S72.001A Essential (primary) hypertension I10 CHF (congestive heart failure) I50.9 Heart failure type: unspecified Heart failure chronicity: chronic DMII (diabetes mellitus, type 2) E11.319 Diabetes mellitus retirement insulin use: without long chain dyeing machine operator use Diabetes mellitus complication status: with ophthalmic complications Diabetes mellitus complication detail: with diabetic retinopathy Diabetic retinopathy severity: with unspecified retinopathy severity Diabetes mellitus macular edema: macular edema presence unspecified Laterality: bilateral Acute kidney injury superimposed on CKD N17.9; N18.9 (1) CHF (congestive heart failure) Heart failure type: unspecified Heart failure chronicity: chronic Qualified Code(s): I50.9 - Heart failure, unspecified (2) DMII (diabetes mellitus, type 2) Diabetes mellitus long chain dyeing machine operator insulin use: without long chain dyeing machine operator use Diabetes mellitus complication status: with ophthalmic complications Diabetes mellitus complication detail: with diabetic retinopathy Diabetic retinopathy severity: with unspecified retinopathy severity Diabetes mellitus macular edema: macular edema presence unspecified Laterality: bilateral Qualified Code(s): E11.319 - Type 2 diabetes mellitus with unspecified diabetic retinopathy without macular edema
[2020-09-14] MEDS ORDERED: DEXTROSE 50% 50 ML SYRINGE IV PRN (05:59)
[2020-09-14] MEDS ORDERED: NALOXONE HCL 0.4 MG/1 ML VIAL/CARP IV PRN (05:59)
[2020-09-14] MEDS ORDERED: bisacodyL 10 MG SUPP PR PRN (05:59)
[2020-09-14] MEDS ORDERED: CARBOHYDRATES FOR HYPOGLYCEMIA PO PRN (05:59)
[2020-09-14] MEDS ORDERED: MAGNESIUM HYDROXIDE SUSP 30 ML UDC PO PRN (05:59)
[2020-09-14] MEDS ORDERED: GLUCAGON FOR INJ 1 MG VIAL SQ PRN (05:59)
[2020-09-14] MEDS ORDERED: GLUCOSE 40% GEL 15 GM TUBE PO PRN (05:59)
[2020-09-14] MEDS ORDERED: ONDANSETRON INJ 2 MG/ML 2 ML VIAL IV PRN (05:59)
[2020-09-14] MEDS ORDERED: ACETAMINOPHEN 325 MG TAB PO PRN (05:59)
[2020-09-14] MEDS ORDERED: GLUCOSE 10 TABS/TUBE PO PRN (05:59)
[2020-09-14] MEDS ORDERED: HYDROmorphone INJ 0.5 MG/0.5 ML SYR IV PRN ×2 (05:59)
[2020-09-14] MEDS ORDERED: Nursing to Pharmacy Communication SCH (06:00)
[2020-09-14] MEDS: LACTATED RINGER'S 1,000 ML IV SCH ×2 (06:13→17:41)
[2020-09-14] MEDS: LIDOCAINE 5% 1 PATCH TD SCH (08:06)
[2020-09-14] MEDS: INSULIN ASPART 100 UNITS/ML 3 ML PEN SC SCH ×3 (08:07→17:40)
[2020-09-14] MEDS: METOPROLOL SUCC 25MG EXT REL TAB PO SCH (08:09)
--- NOTE | 2020-09-14 08:27 | XRay Report ---
XR pelvis 1-2V routine CLINICAL HISTORY: fall, right hip pain COMPARISON: Pelvis radiograph March 28, 2017. FINDINGS: Left hip arthroplasty is noted. The sacroiliac joints and symphysis pubis are intact. Note is made of an acute comminuted displaced intertrochanteric fracture of the right femur with subtroch anteric extension. Angulation at the level the fracture is noted. Pelvic calcifications reflect phleb oliths. IMPRESSION: Acute comminuted displaced intertrochanteric fracture of the right femur with subtrochant breezy extension. ACT 112: Negative or not required by law. Electronically signed by: Leonard Church M.D. 09/14/2020 8:26 AM
--- NOTE | 2020-09-14 08:47 | XRay Report ---
XR femur RT 2V routine CLINICAL HISTORY: fall, right hip/thigh pain COMPARISON: Right knee radiographs May 06, 2018. FINDINGS: Alignment of the total right knee arthroplasty is anatomic. There is no distal right femor al fracture. Note is made of an acute comminuted intertrochanteric fracture of the right femur with s ubtrochanteric extension. Fracture is angulated. IMPRESSION: Acute comminuted intertrochanteric fracture of the right femur with subtrochanteric exten branden. ACT 112: Negative or not required by law. Electronically signed by: Leonard Church M.D. 09/14/2020 8:45 AM
--- NOTE | 2020-09-14 09:50 | Electrocardiogram Report ---
Test Reason : Blood Pressure : / mmHG Vent. Rate : 070 BPM Atrial Rate : 070 BPM P-R Int : 198 ms QRS Dur : 080 ms QT Int : 450 ms P-R-T Axes : 064 030 073 degrees QTc Int : 486 ms Normal sinus rhythm Normal ECG When compared with ECG of 27-APR-2018 15:04, No significant change Confirmed by Zeus Field ([id number]) on 09/14/2020 9:49:26 AM Referred By: REFERRED SELF Confirmed By:Zeus Field
--- NOTE | 2020-09-14 10:07 | XRay Report ---
XR chest 1V portable CLINICAL HISTORY: fall COMPARISON STUDY: April 27, 2018 FINDINGS: No pneumothorax. Minimal blunting of the left costophrenic angle might represent small left pleural effusion. Lung volumes are decreased with crowded lung markings. Few patchy ill-defined opacities are seen thro ughout bilateral lungs. Questionable focal area of increase attenuation is seen at the left lower nec k region, unclear if represent superimposed structure (this structure was not seen during March exam). Cardiac silhouette is within normal limits in size. Mild mediastinal widening is seen and Is new since prior study in 2019. Aorta is calcified. No significant pulmonary vascular congestion.. Osseous structures: Degenerative changes of the spine and right shoulder. IMPRESSION: 1. No pneumothorax seen. No acute fracture demonstrated. 2. Questionable hypoattenuating structure within left lower neck, might represent foreign body or ex ternal object. 3. Few ill-defined patchy opacities, could be due to low inspiratory effort. Possible trace left ple ural effusion. Further evaluation with PA and lateral radiograph of the chest is recommended. 4. Questionable prominence of mediastinum could also be evaluated on PA and lateral chest radiograph . 5. Atherosclerosis. 6. The rest of findings as above. ACT 112: Negative or not required by law. The above report was generated using voice recognition software. It may contain grammatical, syntax o r spelling errors. Electronically signed by: Jocelynn Hernandez DO 09/14/2020 10:05 AM
--- NOTE | 2020-09-14 10:52 | Orthopedic Consultation ---
Date of Consultation September 14, 2020 Assessment & Plan (1) Closed right hip fracture: Right intertrochanteric hip fracture with subtrochanteric extension. X-rays have been reviewed by myself and Dr. Flores. Patient will require trochanteric femoral nailing. I have discussed this with the patient and also with her family. We will plan for surgery to be performed tomorrow morning. We will let her eat today and make her n.p.o. after midnight. We will also place her in Pelayo's traction for additional comfort overnight. Plan for right TFN tomorrow morning. History of Present Illness Reason for Consultation: Right intertrochanteric hip fracture Attending Physician: Leanna Broderick MD History of Present Illness The patient is an 79-year-old female with a past medical history including right TKA, left COSME, hypertension, CKD stage III, CHF, diabetes mellitus type 2 and osteoarthritis. She is brought to the emergency department for assessment right hip pain after a mechanical fall where she tripped and fell in her bathroom earlier in the evening. Patient stated that she was in her bathroom and lost he r balance. She denies any shortness of breath, chest pain, lightheadedness prior to or after the fall. She denied loss of consciousness. After the fall she had immediate pain in her right hip and groin and was unable to ambulate. She was brought to the emergency room here at [facility] and was seen by the staff. X-rays were taken and was found that she had an intertrochanteric hip fracture on the right side. She was thusly admitted to the hospitalist service and we have been asked to take care of her hip fracture. Allergies Allergy/AdvReac Type Severity Reaction Status Date / Time No Known Allergies Allergy Verified 09/14/20 01:23 Home Medications Medication Instructions Recorded Confirmed Type amlodipine 10 mg tablet (Norvasc) 10 mg PO QAM 04/21/18 09/14/20 History docusate sodium 100 mg capsule 100 mg PO DAILY 04/21/18 09/14/20 History (Colace) lidocaine 5 % topical patch 2 patch TOPICAL QAM 04/21/18 09/14/20 History metformin 500 mg tablet 500 mg PO BID 04/21/18 09/14/20 History metoprolol succinate 25 mg 25 mg PO QAM 04/21/18 09/14/20 History tablet,extended release 24 hr (Toprol XL) sitagliptin 50 mg tablet (Januvia) 50 mg PO QAM 04/21/18 09/14/20 History aspirin 81 mg tablet,delayed 81 mg PO DAILY 09/14/20 09/14/20 History release atorvastatin 10 mg tablet 10 mg PO HS 09/14/20 09/14/20 History Patient History Medical History Bone spur RIGHT KNEE Diabetes 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 associated with diabetes mellitus due to underlying condition Dilated cardiomyopathy Hernia "LEFT SIDE" of abdomen History of CHF (congestive heart failure) Hypertension Moderate nonproliferative diabetic retinopathy Osteoarthritis 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 HAS HAD 2 SURGERIES FOR THIS Retinal tear of both eyes Surgical History History of cholecystectomy History of eye surgery LASER EYE SURGERY X2 History of hernia surgery UMBILICAL History of hip surgery LEFT BIPOLAR HEMIARTHROPLASTY following hip fracture History of tonsillectomy and adenoidectomy Family History Mother Diabetes Renal failure Social History Smoking Status: Never smoker Hx Alcohol Use: No Hx Substance Use: No Preferred Language: Puerto Rican Communication Ability: Effective Property Appraiser Required: No Beliefs That Will Affect Care: None marital status details: , had been twice previously; 8 kids in total. 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 She is lying in bed with her hip flexed to approximately 60 degrees and the right lower extremity is up on a pillow for comfort. She states that her pain is controlled at this time and she is feeling well. No acute distress, pleasant cooperative. She is alert and oriented. Examination of her right lower extremity it is as described with the hip in approximately 60 degrees of flexion, knee is in approximately 80 degrees of flexion and up on a pillow for comfort. She has good range of motion of her right ankle and toes and sensation is intact. He is nontender at the right knee and no attempts were made to do range of motion of the knee or the hip secondary to her right hip fracture. She denies any pain in the left lower extremity and has range of motion normal limits. Upper extremities are unaffected and she is nontender at the shoulders, elbows, wrists. Range of motion is within normal limits. Distal pulses are equal bilaterally of the upper and lower extremities. She denies any cervical, thoracic, lumbar pain at this time. There is no gross motor or sensory loss seen at this time. Results & Data ([facility]) Vital Signs (Past 12 Hours) Vital Signs Temp Pulse Pulse Resp BP BP Pulse Ox 09/14/20 07:51 36.6 C 78 20 150/84 H 95 09/14/20 05:46 94 09/14/20 05:45 36.6 C 79 16 146/78 H 83 L 09/14/20 05:25 77 16 163/83 H 97 09/14/20 03:00 84 16 141/82 H 95 09/14/20 00:56 74 18 99 09/14/20 00:54 36.4 C L 72 18 150/82 H 99 Diagnostic Findings Patient: MANUELA RIVERA Date: 09/14/20MR#: [id number]: Akila ACOSTA AVEAcct ID:[id number]: Date: 1940City Zip: [place], [place] [address]Nvb: 79Location: 3NSex: FRoom/Bed: [id number] Phy: Leanna Broderick, MDDiagnosis: CLOSED RIGHT HIP FRACTUREPri Phy: Teodoro Ragland M.D.Service Date: 09/14/20Fa Phy:Interpreting Phy: Leonard Church MDAdmit Phy: Aj Mccray M.D. Ordering Phy: Gurpreet Baker M.D. cc: ~ XR femur RT 2V routine CLINICAL HISTORY: fall, right hip/thigh pain COMPARISON: Right knee radiographs May 06, 2018. FINDINGS: Alignment of the total right knee arthroplasty is anatomic. There is no distal right femoral fracture. Note is made of an acute comminuted intertrochanteric fracture of the right femur with subtrochanteric extension. Fracture is angulated. IMPRESSION: Acute comminuted intertrochanteric fracture of the right femur with subtrochanteric extension.
[2020-09-14] MEDS: HYDROCODONE/ACETAMOPHEN 5/325MG TAB PO PRN ×3 (11:30→23:01)
--- NOTE | 2020-09-14 14:33 | History & Physical Bridge Note ---
Date of Service September 14, 2020 History & Physical Bridge Note I have examined the patient, reviewed the History & Physical and in the interval since the performance of the History & Physical I have noted the following changes of clinical significance: Pt having some pain in hip but as long as doesn't move, she's fine. Denies any chest pain or SOB. No other injuries, no headache. No nausea and ate lunch. Spoke with Ortho PA-plan for surgery tomorrow, NPO after midnight. Continue current plan of care
[2020-09-14] MEDS: DOCUSATE SODIUM/SENNA 50/8.6MG TAB PO SCH (20:12)
[2020-09-15] MEDS: INSULIN ASPART 100 UNITS/ML 3 ML PEN SC SCH ×5 (00:04→20:57)
[2020-09-15] MEDS: LACTATED RINGER'S 1,000 ML IV SCH (05:42)
--- NOTE | 2020-09-15 06:57 | Anesthesiology Consultation ---
Date of Service September 15, 2020 Assessment & Plan Chart Review Chart Review: Acceptable Risk for Surgery and Patient NOT seen in Pre Admission Testing Consults Requested none ASA ASA4 Proposed Anesthesia Anesthesia Type: General Anesthesia Line Insertion: Arterial line History Surgery Operation Date: 09/15/20 07:30 Proposed Procedures p Right Troch Nail Intermediate or Long - Eric Flores MD Height/Weight Height: 5 ft 3 in Weight: 100 kg Allergies Allergy/AdvReac Type Severity Reaction Status Date / Time No Known Allergies Allergy Verified 09/14/20 01:23 Medications Home Medications Medication Instructions Recorded Confirmed Last Taken amlodipine 10 mg tablet (Norvasc) 10 mg PO QAM 04/21/18 09/14/20 09/13/20 docusate sodium 100 mg capsule 100 mg PO DAILY 04/21/18 09/14/20 09/13/20 (Colace) lidocaine 5 % topical patch 2 patch TOPICAL QAM 04/21/18 09/14/20 09/13/20 metformin 500 mg tablet 500 mg PO BID 04/21/18 09/14/20 09/13/20 metoprolol succinate 25 mg 25 mg PO QAM 04/21/18 09/14/20 09/13/20 tablet,extended release 24 hr (Toprol XL) sitagliptin 50 mg tablet (Januvia) 50 mg PO QAM 04/21/18 09/14/20 09/13/20 aspirin 81 mg tablet,delayed 81 mg PO DAILY 09/14/20 09/14/20 09/13/20 release atorvastatin 10 mg tablet 10 mg PO HS 09/14/20 09/14/20 09/13/20 Active Medications Generic Name Dose Route Start Last Admin Trade Name Freq PRN Reason Stop Dose Admin Hydrocodone Bitart/Acetaminophen 2 tab 09/14/20 05:59 09/14/20 23:01 Hydrocodone/Acetamophen 5/325mg Tab PO 09/28/20 05:58 2 tab Q4H PRN Administration SEVERE Pain (7,8,9,10) Lactated Ringer's 1,000 mls @ 80 mls/hr 09/14/20 05:59 09/15/20 05:42 Lr IV 10/14/20 05:58 80 mls/hr .[id number] MADDIE Administration Insulin Aspart 0 units 09/14/20 06:00 09/15/20 05:48 Insulin Aspart 100 Units/Ml 3 Ml Pen SC 10/14/20 05:59 Not Given Q6 MADDIE Lidocaine 2 patch 09/14/20 09:00 09/14/20 08:06 Lidocaine 5% 1 Patch TD 10/14/20 08:59 Not Given QAM MADDIE Metoprolol Succinate 25 mg 09/14/20 09:00 09/14/20 08:09 Metoprolol Succ 25mg Ext Rel Tab PO 10/14/20 08:59 25 mg QAM MADDIE Administration Miscellaneous 1 ea 09/14/20 21:00 09/14/20 20:12 Remove Lidoderm Patch N/A 10/14/20 20:59 1 ea DAILY@2100 MADDIE Administration Senna/Docusate Sodium 2 tab 09/14/20 21:00 09/14/20 20:12 Docusate Sodium/Senna 50/8.6mg Tab PO 10/14/20 20:59 2 tab HS MADDIE Administration NPO Date Last Intake of Fluids: 09/14/20 Time Last Intake of Fluids: 00:00 Date Last Intake of Solids: 09/13/20 Time Last Intake of Solids: 18:00 Past Medical History Medical History Bone spur RIGHT KNEE Diabetes 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 associated with diabetes mellitus due to underlying condition Dilated cardiomyopathy Hernia "LEFT SIDE" of abdomen History of CHF (congestive heart failure) Hypertension Moderate nonproliferative diabetic retinopathy Osteoarthritis 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 HAS HAD 2 SURGERIES FOR THIS Retinal tear of both eyes Exercise / Class Metabolic Activity III < 4 Walking/Shop/Light housework Past Family History Family History Mother Diabetes Renal failure Past Surgical History Surgical History History of cholecystectomy History of eye surgery LASER EYE SURGERY X2 History of hernia surgery UMBILICAL History of hip surgery LEFT BIPOLAR HEMIARTHROPLASTY following hip fracture History of tonsillectomy and adenoidectomy Past Anesthesia History No Hx of Anesthesia Complications and No Family Hx of Anesthesia Complications History of PONV No Hx of PONV and No Hx of Motion Sickness Social History Smoking Status: Never smoker Hx Alcohol Use: No Hx Substance Use: No substance use type: does not use Physical Exam Vital Signs Last Vital Signs Temp 37.1 C 09/14/20 23:02 Pulse 68 09/14/20 23:02 Resp 20 09/14/20 23:02 BP 113/70 09/14/20 23:02 Pulse Ox 96 09/14/20 23:02 Testing Laboratory Results 09/14/20 01:29 09/14/20 01:28 PT 10.2 Seconds (9.0-12.0) 09/14/20 01:28 INR 1.0 (0.9-1.1) 09/14/20 01:28 APTT 24.1 Seconds (21.0-31.0) 09/14/20 01:28 Urine Color Yellow 09/14/20 01:40 Urine Appearance Clear (Clear) 09/14/20 01:40 Urine pH 7.0 (4.5-7.5) 09/14/20 01:40 Ur Specific [place] 1.014 (1.000-1.030) 09/14/20 01:40 Urine Protein Negative (Negative) 09/14/20 01:40 Urine Glucose (UA) Negative (Negative) 09/14/20 01:40 Urine Ketones Negative (Negative) 09/14/20 01:40 Urine Nitrite Negative (Negative) 09/14/20 01:40 Ur Leukocyte Esterase 1+ (Negative) H 09/14/20 01:40 Urine WBC (Auto) 10-30 /hpf (0-5) H 09/14/20 01:40 Urine RBC (Auto) 5-10 /hpf (0-4) H 09/14/20 01:40 U Hyaline Cast (Auto) 0 /lpf (0-5) 09/14/20 01:40 U Epithel Cells (Auto) >30 /lpf (0-5) H 09/14/20 01:40 Urine Bacteria (Auto) Negative (Negative) 09/14/20 01:40 Blood Type A Positive 09/14/20 01:29 Antibody Screen NEGATIVE 09/14/20 01:29 09/15/20 09/15/20 09/14/20 05:45 00:00 20:25 POC Glucose 134 H 156 H 152 H Electrocardiogram Date: 09/14/20 Findings: + NSR @ (70) Chest X-Ray Date: 09/14/20 Findings: + NAD and + atherosclerosis of thoracic aorta
[2020-09-15] MEDS ORDERED: KETAMINE 50 MG/5 ML SYRINGE ONE (07:06)
[2020-09-15] MEDS ORDERED: fentaNYL citrate 100 MCG/2 ML VIAL ONE ×2 (07:07→11:02)
[2020-09-15] MEDS ORDERED: BUPIVACAINE 0.5 % 5 MG/1 ML MPF 30ML VIAL ONE (07:37)
[2020-09-15] MEDS ORDERED: ceFAZolin 2,000 MG/15 ML IV PUSH IV ONE (07:52)
--- NOTE | 2020-09-15 08:00 | History & Physical Bridge Note ---
Date of Service September 15, 2020 History & Physical Bridge Note I have examined the patient, reviewed the History & Physical and in the interval since the performance of the History & Physical I have noted the following changes of clinical significance: no changes noted I saw Maricel in the preoperative holding area we discussed risk benefits reasonable outcomes and expectations for right intertrochanteric femoral nail. She is agreeable and wishes to proceed
--- NOTE | 2020-09-15 10:39 | Post Operative Brief Note ---
Immediate Post Op Note v1 Date of Surgery September 15, 2020 Pre & Post Diagnosis Operation Date: 09/15/20 07:30 Pre-Op Diagnosis: CLOSED RIGHT HIP FRACTURE Post-Op Diagnosis: CLOSED RIGHT HIP FRACTURE I identified the patient and participated in the time-out.: Yes Procedure Operation Date: 09/15/20 07:30 Actual Procedures p Right Troch Nail Intermediate(Right) - Eric Flores MD Surgeon Eric Flores MD Senior Warehouse Clerk sonja Han Estimated Blood Loss 50 Findings Consistent with Post-Op Diagnosis Displaced comminuted fracture
[2020-09-15] MEDS ORDERED: PROMETHAZINE HCL 12.5 MG in SODIUM CHLORIDE 0.9% 50 ML IV PRN (10:45)
[2020-09-15] MEDS ORDERED: LIDOCAINE 2% 2 ML VIAL/AMP(20MG/ML) INFIL ONE (10:45)
[2020-09-15] MEDS ORDERED: NALOXONE HCL 0.4 MG/1 ML VIAL/CARP IV PRN ×2 (10:45→10:55)
[2020-09-15] MEDS ORDERED: ePHEDrine sulfate 50 MG/ML AMP IV PRN (10:45)
[2020-09-15] MEDS ORDERED: PHENYLEPHRINE 100MCG/ML 5ML SYR ONE (10:45)
[2020-09-15] MEDS ORDERED: ONDANSETRON INJ 2 MG/ML 2 ML VIAL ONE (10:45)
[2020-09-15] MEDS ORDERED: ROCURONIUM BROMIDE 10 MG/ML 5 ML VIAL IV ONE (10:45)
[2020-09-15] MEDS ORDERED: ePHEDrine sulfate 50 MG/ML AMP ONE (10:45)
[2020-09-15] MEDS ORDERED: PROPOFOL IV EMULSION 10 MG/ML 20 ML VIAL IV ONE (10:45)
[2020-09-15] MEDS ORDERED: ONDANSETRON INJ 2 MG/ML 2 ML VIAL IV PRN ×2 (10:45→10:55)
[2020-09-15] MEDS ORDERED: ATROPINE SULFATE 0.1 MG/ML 10ML SYR IV PRN (10:45)
[2020-09-15] MEDS ORDERED: FLUMAZENIL 0.1 MG/1 ML 10 ML VIAL IV PRN (10:45)
[2020-09-15] MEDS ORDERED: SUCCINYLCHOLINE CHLORIDE 20 MG/ML 10 ML VIAL IV ONE (10:45)
[2020-09-15] MEDS ORDERED: LABETALOL HCL IV 5 MG/ML 20ML IV PRN (10:45)
--- NOTE | 2020-09-15 10:52 | Fluoroscopy Report ---
INTRAOPERATIVE RADIOGRAPHS CLINICAL HISTORY: Open reduction and internal fixation of the right femur. Fluoroscopy time: 265 seconds. FINDINGS: 6 spot fluoroscopic views of the right femur are compared to radiographs dated 09/14/2020. T here has been intertrochanteric and intramedullary nail fixation of a comminuted fracture of the inte rtrochanteric/subtrochanteric right proximal femur. Near-anatomic alignment has been restored. There is persistent medial displacement of the lesser trochanter. A single cortical lag screw transfixes th e intramedullary nail. Overlying soft tissue edema is noted. IMPRESSION: Intraoperative images from open reduction and internal fixation of the right proximal fem ur as above. Electronically signed by: Efren Ramírez M.D. 09/15/2020 10:50 AM
[2020-09-15] MEDS ORDERED: METOCLOPRAMIDE HCL INJ 5 MG/ML 2 ML VIAL IV PRN (10:55)
[2020-09-15] MEDS ORDERED: HYDROmorphone INJ 0.5 MG/0.5 ML SYR IV PRN (10:55)
[2020-09-15] MEDS ORDERED: diphenhydrAMINE 50 MG/ML VIAL IV PRN (10:55)
[2020-09-15] MEDS ORDERED: ALUMINUM/MAGNESIUM SUSP 30 ML UDC PO PRN (10:55)
[2020-09-15] MEDS ORDERED: MAGNESIUM HYDROXIDE SUSP 30 ML UDC PO PRN (10:55)
[2020-09-15] MEDS ORDERED: bisacodyL 10 MG SUPP PR PRN (10:55)
[2020-09-15] MEDS ORDERED: oxyCODONE HCL IR 5 MG TAB (IMMEDIATE RELEASE) PO PRN (10:55)
[2020-09-15] MEDS: fentaNYL citrate 100 MCG/2 ML VIAL IV PRN ×3 (11:03→11:13)
--- NOTE | 2020-09-15 11:21 | Anesthesiology Progress Note ---
Date of Service September 15, 2020 Anesthesia Post Procedure Vital Signs Vital Signs: Temp Pulse Pulse Resp BP Pulse Ox Pulse Ox 09/15/20 11:15 94 H 18 135/79 100 09/15/20 11:05 95 H 18 113/75 100 09/15/20 10:55 77 20 137/80 98 09/15/20 10:45 80 21 121/68 100 09/15/20 10:38 36.4 C L 88 16 133/68 97 09/15/20 07:11 36.9 C 53 L 16 132/85 95 09/14/20 23:02 37.1 C 68 20 113/70 96 09/14/20 19:25 95 09/14/20 16:32 36.8 C 75 16 144/73 H 93 Pain Intensity Bilateral Hip: Pain Intensity: 4 Right Hip: Pain Intensity: 5 Transfer of Care Handoff Completed per policy Notes Mental Status: alert / awake / arousable Patient Amnestic to Procedure: Yes Nausea / Vomiting: adequately controlled Pain: adequately controlled Airway Patency, RR, SpO2: stable & adequate BP & HR: stable & adequate Hydration State: stable & adequate Anesthetic Complications: no major complications apparent
[2020-09-15] MEDS: SODIUM CHLORIDE 0.9% 1000ML 1,000 ML IV SCH ×2 (12:13→20:57)
[2020-09-15] MEDS: METOPROLOL SUCC 25MG EXT REL TAB PO SCH (12:19)
[2020-09-15] MEDS: LIDOCAINE 5% 1 PATCH TD SCH (12:20)
[2020-09-15] MEDS ORDERED: ACETAMINOPHEN 500 MG TAB PO SCH (14:00)
[2020-09-15] MEDS ORDERED: Nursing to Pharmacy Communication SCH (14:00)
[2020-09-15 14:31] LABS: Basophils # (auto) 0.01 K/uL (0-0.2); Basophils % (auto) 0.1 %; Hematocrit (blood only) 31.6 % (37-47); Hemoglobin 10.1 g/dL (12.0-16.0); Immature Granulocytes # (auto) 0.04 K/uL (0.00-0.02); Immature Granulocytes % (auto) 0.4 %; Lymphocytes # (auto) 0.34 K/uL (1.2-3.4); Lymphocytes % (auto) 3.2 %; Mean Corpuscular Hemoglobin 29.9 pg (25-34); Mean Corpuscular Volume 93.5 fL (80-100); Mean Platelet Volume 11.7 fL (7.4-10.4); Monocytes # (auto) 0.84 K/uL (0.11-0.59); Monocytes % (auto) 7.9 %; Neutrophils # (auto) 9.37 K/uL (1.4-6.5); Neutrophils % (auto) 88.4 %; Platelet Count 129 K/uL (130-400); RDW Coefficient of Variation 13.3 % (11.5-14.5); Red Blood Count 3.38 M/uL (4.2-5.4)
[2020-09-15 14:48] LABS: Albumin Level 2.7 gm/dl (3.4-5.0); Calcium 8.1 mg/dl (8.5-10.1); Creatinine Clr Calc Pharmacy 38.3 ml/min; Est GFR (African American) 44.6 ml/min; Est GFR (Non-African American) 38.4 ml/min; Magnesium 1.4 mg/dl (1.8-2.4); Potassium 4.4 mmol/L (3.5-5.1)
[2020-09-15 14:51] LABS: Albumin Globulin Ratio 0.9 (0.9-2); Bilirubin,Total 0.6 mg/dl (0.2-1); Total Protein 5.7 gm/dl (6.4-8.2)
--- NOTE | 2020-09-15 15:27 | XRay Report ---
RIGHT FEMUR 2 VIEWS CLINICAL HISTORY: Postoperative examination. FINDINGS: AP and crosstable lateral portable views of the right femur are compared to study dated 08/18. The skeletal structures are osteopenic. Intertrochanteric and intramedullary nails have been placed transfixing an intertrochanteric/subtrochanteric fracture of the right proximal femur. The lar gest fragments are in near-anatomic alignment with only mild persistent angulation. There is persiste nt medial displacement of the lesser trochanter. A single cortical lag screw transfixes the intramedu llary nail. The orthopedic hardware appears intact. The distal femur is maintained. The visualized ri ght hemipelvis appears intact. The right hip joint appears maintained. A right knee arthroplasty is p artially imaged. Skin clips, subcutaneous cutaneous gas, and soft tissue edema overlying the right pr oximal femur are expected postoperative findings. Numerous phleboliths are noted in the pelvis. IMPRESSION: Expected postoperative findings status post intertrochanteric and intramedullary nail fix ation of a right femoral fracture. Electronically signed by: Efren Ramírez M.D. 09/15/2020 3:26 PM
[2020-09-15] MEDS: ceFAZolin 1000MG 1,000 MG/7.5 ML SYR IV SCH (15:37)
[2020-09-15] MEDS: FERROUS GLUCONATE 324 MG TAB PO SCH (16:12)
[2020-09-15] MEDS: DOCUSATE SODIUM/SENNA 50/8.6MG TAB PO SCH (20:05)
[2020-09-15] MEDS: SENNA 8.6 MG TAB PO SCH (20:05)
[2020-09-15] MEDS: DOCUSATE SODIUM 100 MG CAP PO SCH (20:05)
--- NOTE | 2020-09-15 21:00 | Hospitalist Progress Note ---
Date of Service September 15, 2020 Assessment & Plan (1) Closed right hip fracture: Plan: Closed right hip fracture- Appreciate management per orthopedics s/p Right Troch Nail 09/15 Dr Flores Pain management per orthopedics - given increased post operative AST/ALT however will hold further acetaminophen while we trend this with AM labs Vitamin D level in AM. Consider osteoporosis treatment as outpatient once fracture healed. (2) Acute kidney injury superimposed on CKD: Plan: Creatinine 1.37 -> 1.3, baseline 0.86 Continue on NSS @ 100ml/hr Repeat laboratories in a.m. (3) Essential (primary) hypertension: Plan: Hypertension/CHF- Hold amlodipine, aspirin. Continue metoprolol succinate 25 mg every morning Can likely restart ASA in AM if Hgb stable. (4) CHF (congestive heart failure): Plan: See above (5) DMII (diabetes mellitus, type 2): Plan: Hold Januvia and Metformin Placed on Accu-Cheks before meals and at bedtime, will tighten NovoLog coverage per scale (6) Transaminitis: Plan: Post operative. Suspect from muscle due to operation. Will hold acetaminophen for now (will restart as long as downtrending). Repeat in CMP in AM. Plan: VTE prophylaxis per orthopedics with Lovenox 30mg SQ BID Admission and Anticipated Discharge Date Admission Date: September 14, 2020 Subjective Patient seen post operatively. Doing well. No current complaints. On 2LPM O2 without any shortness of breath or chest pain. No numbness in right toes. Able to plantar and dorsiflex right ankle normally. Pain under control. No prior osteoporosis testing per patient recollection. Review of Systems Review of Systems: All systems reviewed & are unremarkable except as noted in HPI & below Physical Exam Constitutional: WD/WN, vitals as above Eyes: + anicteric sclerae; normal pupil size ENMT: external ear and nose normal, oropharynx normal Mouth: oral mucous membranes not dry Neck: trachea midline, no thyromegaly Respiratory: normal respiratory effort, lungs clear to auscultation Cardiovascular: RRR, no murmur, no edema Gastrointestinal (Abdomen): normal bowel sounds, soft, nontender, no hepatosplenomegaly Musculoskeletal: NV intact right ankle and toes, PT/DP pulses intact Neurologic: awake Results & Data Results & Data ([facility]) Vital Signs (Past 12 Hours) Vital Signs Temp Pulse Resp BP Pulse Ox 09/15/20 19:32 37.1 C 88 18 102/68 95 09/15/20 16:55 36.7 C 88 18 103/66 95 09/15/20 14:17 97 H 16 125/67 95 09/15/20 13:17 96 H 18 117/65 99 09/15/20 12:19 96 H 18 122/50 L 100 09/15/20 11:25 36.4 C L 93 H 18 129/88 98 09/15/20 11:15 94 H 18 135/79 100 09/15/20 11:05 95 H 18 113/75 100 09/15/20 10:55 77 20 137/80 98 09/15/20 10:45 80 21 121/68 100 09/15/20 10:38 36.4 C L 88 16 133/68 97 PG Care Time/CCT Total # of Minutes Spent Total Time Spent with Patient: Total time spent is greater than 50% in c oordination of care (as documented) at patient's floor/unit and/or counseling patient: Coding Level of Care Code 70653 Subseq Hosp Care Lvl 2 Diagnoses Closed right hip fracture S72.001A Acute kidney injury superimposed on CKD N17.9; N18.9 Essential (primary) hypertension I10 CHF (congestive heart failure) I50.9 Heart failure type: unspecified Heart failure chronicity: chronic DMII (diabetes mellitus, type 2) E11.319 Diabetes mellitus truck terminal manager insulin use: without correction use Diabetes mellitus complication status: with ophthalmic complications Diabetes mellitus complication detail: with diabetic retinopathy Diabetic retinopathy severity: with unspecified retinopathy severity Diabetes mellitus macular edema: macular edema presence unspecified Laterality: bilateral Transaminitis R74.01 (1) CHF (congestive heart failure) Heart failure type: unspecified Heart failure chronicity: chronic Qualified Code(s): I50.9 - Heart failure, unspecified (2) DMII (diabetes mellitus, type 2) Diabetes mellitus correction insulin use: without correction use Diabetes mellitus complication status: with ophthalmic complications Diabetes mellitus complication detail: with diabetic retinopathy Diabetic retinopathy severity: with unspecified retinopathy severity Diabetes mellitus macular edema: macular edema presence unspecified Laterality: bilateral Qualified Code(s): E11.319 - Type 2 diabetes mellitus with unspecified diabetic retinopathy without macular edema
[2020-09-16] MEDS: ceFAZolin 1000MG 1,000 MG/7.5 ML SYR IV SCH (00:06)
[2020-09-16] MEDS: ENOXAPARIN INJ 30 MG/0.3 ML SYR SQ SCH ×2 (06:09→18:33)
[2020-09-16 06:13] LABS: Basophils # (auto) 0.01 K/uL (0-0.2); Basophils % (auto) 0.2 %; Eosinophils # (auto) 0.01 K/uL (0-0.5); Eosinophils % (auto) 0.2 %; Hematocrit (blood only) 26.5 % (37-47); Hemoglobin 8.5 g/dL (12.0-16.0); Immature Granulocytes # (auto) 0.01 K/uL (0.00-0.02); Immature Granulocytes % (auto) 0.2 %; Lymphocytes # (auto) 0.87 K/uL (1.2-3.4); Lymphocytes % (auto) 14.6 %; Mean Corpuscular Hemoglobin 29.5 pg (25-34); Mean Corpuscular Hgb Conc 32.1 g/dL (32-36); Mean Platelet Volume 11.8 fL (7.4-10.4); Monocytes # (auto) 0.66 K/uL (0.11-0.59); Monocytes % (auto) 11.1 %; Neutrophils % (auto) 73.7 %; Platelet Count 106 K/uL (130-400); RDW Coefficient of Variation 13.5 % (11.5-14.5); RDW Standard Deviation 45.5 fL (36.4-46.3); Red Blood Count 2.88 M/uL (4.2-5.4); White Blood Count 5.96 K/uL (4.8-10.8)
[2020-09-16 06:42] LABS: Albumin Level 2.3 gm/dl (3.4-5.0); BUN Creatinine Ratio 20.9 (10-20); Calcium 7.9 mg/dl (8.5-10.1); Creatinine Clr Calc Pharmacy 42.5 ml/min; Est GFR (African American) 50.6 ml/min; Est GFR (Non-African American) 43.7 ml/min; Magnesium 1.8 mg/dl (1.8-2.4); Potassium 4.4 mmol/L (3.5-5.1)
[2020-09-16 06:45] LABS: Albumin Globulin Ratio 0.8 (0.9-2); Bilirubin,Total 0.3 mg/dl (0.2-1); Globulin 2.9 gm/dl (2.5-4.0); Total Protein 5.2 gm/dl (6.4-8.2)
[2020-09-16] MEDS: FERROUS GLUCONATE 324 MG TAB PO SCH ×2 (09:43→17:56)
--- NOTE | 2020-09-16 09:43 | Orthopedic Progress Note ---
Date of Service September 16, 2020 Assessment & Plan (1) Closed fracture of right hip: Plan: s/p right hip TFN PT/OT On hold with tylenol/ASA per medicine. Continue SCDs, TEDs, Lovenox TTWB Discharge to a rehab facility will be needed Admission and Anticipated Discharge Date Admission Date: September 14, 2020 Subjective POD #1 patient resting in bed, complaints of pain with moving. No CP, SOB, dizziness Physical Exam Physical Exam: Toes mobile, NVI. Calves soft, non tender. Dressing in place. Results & Data ([facility]) Vital Signs (Past 12 Hours) Vital Signs Temp Pulse Pulse Resp BP BP Pulse Ox 09/16/20 08:20 37.3 C 110 H 17 131/77 95 09/15/20 23:09 37.1 C 102 H 16 101/66 95 (1) Closed fracture of right hip Encounter type: initial encounter Qualified Code(s): S72.001A - Fracture of unspecified part of neck of right femur, initial encounter for closed fracture
[2020-09-16] MEDS: METOPROLOL SUCC 25MG EXT REL TAB PO SCH (09:44)
[2020-09-16] MEDS: MULTIVITAMIN TAB PO SCH (09:44)
[2020-09-16] MEDS: DOCUSATE SODIUM 100 MG CAP PO SCH ×2 (09:44→20:52)
[2020-09-16] MEDS: LIDOCAINE 5% 1 PATCH TD SCH (09:44)
[2020-09-16] MEDS: INSULIN ASPART 100 UNITS/ML 3 ML PEN SC SCH ×4 (09:46→20:57)
--- NOTE | 2020-09-16 13:20 | Hospitalist Progress Note ---
Date of Service September 16, 2020 Assessment & Plan (1) Closed right hip fracture: Plan: Closed right hip fracture- Appreciate management per orthopedics s/p Right Troch Nail 09/15 Dr Flores Pain management per orthopedics - given increased post operative AST/ALT however will hold further acetaminophen while we trend this with AM labs Vitamin D level pending Consider osteoporosis treatment as outpatient once fracture healed. (2) Postoperative anemia: Plan: Repeat H&H this afternoon stable. Asymptomatic. Repeat Hgb in AM. Iron supplementation appropriately started by surgery. (3) Acute kidney injury superimposed on CKD: Plan: Creatinine 1.37 -> 1.17, baseline 0.86 Eating and drinking well therefore IV fluids discontinued (4) Essential (primary) hypertension: Plan: Hypertension/CHF- Hold amlodipine, aspirin. Continue metoprolol succinate 25 mg every morning Can likely restart ASA in AM if Hgb stable. (5) CHF (congestive heart failure): Plan: See above (6) DMII (diabetes mellitus, type 2): Plan: Hold Januvia and Metformin Placed on Accu-Cheks before meals and at bedtime, will tighten NovoLog coverage per scale (7) Transaminitis: Plan: Post operative. Suspect from muscle due to operation. Will hold acetaminophen for now (starting to downtrend). Repeat in CMP in AM. Plan: VTE prophylaxis per orthopedics with Lovenox 30mg SQ BID Admission and Anticipated Discharge Date Admission Date: September 14, 2020 Subjective Patient has been up and out of bed today. No problems with her ankle movements distal to the hip fracture. Hemoglobin dropped from 10.1 postoperatively to 8.5 today. She denies any chest pain, shortness of breath, dizziness. Review of Systems Review of Systems: All systems reviewed & are unremarkable except as noted in HPI & below Physical Exam Constitutional: WD/WN, vitals as above Eyes: + anicteric sclerae; normal pupil size ENMT: external ear and nose normal, oropharynx normal Mouth: oral mucous membranes not dry Neck: trachea midline, no thyromegaly Respiratory: normal respiratory effort, lungs clear to auscultation Cardiovascular: RRR, no murmur, no edema Gastrointestinal (Abdomen): normal bowel sounds, soft, nontender, no hepatosplenomegaly Neurologic: awake Results & Data Results & Data ([facility]) Vital Signs (Past 12 Hours) Vital Signs Temp Pulse Resp BP Pulse Ox Pulse Ox 09/16/20 11:00 93 09/16/20 10:21 93 09/16/20 08:20 37.3 C 110 H 17 131/77 95 09/16/20 07:00 95 PG Care Time/CCT Total # of Minutes Spent Total Time Spent with Patient: Total time spent is greater than 50% in coordination of care (as documented) at patient's floor/unit and/or counseling patient: Coding Level of Care Code 82687 Subseq Hosp Care Lvl 2 Diagnoses Closed right hip fracture S72.001A Acute kidney injury superimposed on CKD N17.9; N18.9 Essential (primary) hypertension I10 CHF (congestive heart failure) I50.9 Heart failure chronicity: chronic Heart failure type: unspecified DMII (diabetes mellitus, type 2) E11.319 Diabetes mellitus complication detail: with diabetic retinopathy Diabetes mellitus complication status: with ophthalmic complications Diabetes mellitus long-term insulin use: without long-term use Diabetes mellitus macular edema: macular edema presence unspecified Diabetic retinopathy severity: with unspecified retinopathy severity Laterality: bilateral Transaminitis R74.01 Postoperative anemia D64.9 (1) DMII (diabetes mellitus, type 2) Diabetes mellitus complication detail: with diabetic retinopathy Diabetes mellitus complication status: with ophthalmic complications Diabetes mellitus terminal block assembler insulin use: without terminal block assembler use Diabetes mellitus macular edema: macular edema presence unspecified Diabetic retinopathy severity: with unspecified retinopathy severity Laterality: bilateral Qualified Code(s): E11.319 - Type 2 diabetes mellitus with unspecified diabetic retinopathy without macular edema (2) CHF (congestive heart failure) Heart failure chronicity: chronic Heart failure type: unspecified Qualified Code(s): I50.9 - Heart failure, unspecified
[2020-09-16 16:48] LABS: Hematocrit (blood only) 26.4 % (37-47); Hemoglobin 8.6 g/dL (12.0-16.0)
[2020-09-16] MEDS: HYDROCODONE/ACETAMOPHEN 5/325MG TAB PO PRN (20:52)
[2020-09-16] MEDS: SENNA 8.6 MG TAB PO SCH (20:52)
[2020-09-16] MEDS: DOCUSATE SODIUM/SENNA 50/8.6MG TAB PO SCH (20:52)
[2020-09-17] MEDS: ENOXAPARIN INJ 30 MG/0.3 ML SYR SQ SCH ×2 (06:08→20:11)
[2020-09-17 06:42] LABS: Basophils # (auto) 0.02 K/uL (0-0.2); Basophils % (auto) 0.3 %; Eosinophils # (auto) 0.07 K/uL (0-0.5); Eosinophils % (auto) 1.2 %; Hematocrit (blood only) 24.8 % (37-47); Hemoglobin 7.9 g/dL (12.0-16.0); Immature Granulocytes # (auto) 0.03 K/uL (0.00-0.02); Immature Granulocytes % (auto) 0.5 %; Lymphocytes # (auto) 0.79 K/uL (1.2-3.4); Lymphocytes % (auto) 13.3 %; Mean Corpuscular Hemoglobin 29.5 pg (25-34); Mean Corpuscular Hgb Conc 31.9 g/dL (32-36); Mean Corpuscular Volume 92.5 fL (80-100); Mean Platelet Volume 11.8 fL (7.4-10.4); Monocytes # (auto) 0.56 K/uL (0.11-0.59); Monocytes % (auto) 9.5 %; Neutrophils # (auto) 4.45 K/uL (1.4-6.5); Neutrophils % (auto) 75.2 %; Platelet Count 114 K/uL (130-400); RDW Coefficient of Variation 13.6 % (11.5-14.5); RDW Standard Deviation 45.9 fL (36.4-46.3); Red Blood Count 2.68 M/uL (4.2-5.4); White Blood Count 5.92 K/uL (4.8-10.8)
[2020-09-17 07:17] LABS: BUN Creatinine Ratio 18.2 (10-20); Calcium 8.1 mg/dl (8.5-10.1); Creatinine Clr Calc Pharmacy 46.9 ml/min; Est GFR (Non-African American) 49.2 ml/min; Magnesium 1.8 mg/dl (1.8-2.4); Potassium 4.3 mmol/L (3.5-5.1)
[2020-09-17 07:22] LABS: RBC Morphology Unremarkable
[2020-09-17 07:42] LABS: Estimated Average Glucose 140 mg/dl; Hemoglobin A1C 6.5 % (4.5-5.6)
--- NOTE | 2020-09-17 08:12 | Operative Report (OR) ---
PREOPERATIVE DIAGNOSIS: Right hip intertrochanteric fracture with subtrochanteric extension. POSTOPERATIVE DIAGNOSIS: Right hip intertrochanteric fracture with subtrochanteric extension. PROCEDURE: Right hip intertrochanteric nail with subtrochanteric extension. SURGEON: Wilfred Flores MD. SECURITY SOLUTIONS ENGINEER: Luly Barrera PA-C, who was necessary for prepping, draping, fracture table set up, ret raction, exposure, and closure. ANESTHESIA: General anesthesia. IMPLANTS USED: Synthes trochanteric femoral nail, 11 mm/130 degree/intermediate nail. 11 mm helical blade 100 mm in length. INDICATIONS: This is an 79-year-old female who sustained a displaced intertrochanteric hip fracture. She presents with a subtrochanteric extension of the fracture. She presents with displacement and instability as well as osteoporotic bone. I saw her in the preoperative holding area. We discussed r isks, benefits, reasonable outcomes and expectations. The risks and benefits have been discussed including, but not limited to, risk of infection, nerve in jury, stiffness, loss of motion, failure to improve, etc. Reasonable outcomes and options of treatmen t were discussed. An explanation of appropriate alternatives to the procedure that may be advantageou s were discussed and their risks and benefits, as well as the risks and benefits of not proceeding wi th treatment. I offered to answer any additional inquiries concerning the treatment involved. All the patients questions were answered. The patient is agreeable, understanding of the treatment plan and alternatives, and wishes to proceed with the treatment plan. DESCRIPTION OF OPERATIVE PROCEDURE: The patient was placed on a fracture table and traction and clos ed reduction was performed. This resulted in acceptable alignment. The lesser trochanter was off an d the patient had fracture comminution in the region of the greater trochanter and a lateral piece wa s displaced as well. Reduction did result in acceptable alignment. The patient had fairly obese thighs and we adducted the hip to help to gain access to the greater tro chanter. I made a longitudinal incision approximately 1 inch above the greater trochanter and extend ing this proximally. Dissection was carried down through the skin and subcutaneous tissue. Veins we re cauterized and I dissected through the fat layer. The fascial layer was sharply incised. I place d a guidewire at the tip of the greater trochanter and this was driven into the intramedullary canal. This was checked in multiple views with fluoroscopy and this was in good position. I then used an entry reamer. I then placed the ball-tipped guidewire into the canal. I then passed a 12.5 reamer a nd this did pass easily. I selected an intermediate nail given the subtrochanteric extension. Nail w as placed in the canal over the guidewire and the guidewire was withdrawn. The nail did fit easily a nd required a minimal hammering to get it in place. Once this was in place, I made an incision for the femoral neck screw and I dissected through the fas sheila. I placed the appropriate guide for the femoral neck screw and placed a guidewire in the center- center position. This resulted in excellent alignment. I used an 11 mm helical blade 100 mm in radha th. I overdrilled and then I placed the helical blade, this resulted in good alignment and stability and good reduction. I then placed the guidewires for the distal locking screw. I dissected through the soft tissues and it was placed down to bone. I then drilled and placed a 5 mm x 38 locking scre w, this resulted in excellent bite and verified this was across the bone and across the nail under C- arm fluoroscopy. Incisions were irrigated. The fascial layer was closed with 0 Vicryl and subcutaneous layer was clos ed with 2-0 Vicryl. Malcolm were used on the skin. Soft dressing was applied. The patient was take n to PACU in stable condition. I discussed results of the procedure in detail with the patient's family. Postoperative plan will be toe-touch weightbearing and approximately 4 weeks of Lovenox. Job ID: [id number]
[2020-09-17] MEDS: INSULIN ASPART 100 UNITS/ML 3 ML PEN SC SCH (08:44)
[2020-09-17] MEDS: DOCUSATE SODIUM 100 MG CAP PO SCH ×2 (08:46→20:16)
[2020-09-17] MEDS: METOPROLOL SUCC 25MG EXT REL TAB PO SCH (08:46)
[2020-09-17] MEDS: FERROUS GLUCONATE 324 MG TAB PO SCH ×2 (08:46→17:46)
[2020-09-17] MEDS: MULTIVITAMIN TAB PO SCH (08:46)
[2020-09-17] MEDS: LIDOCAINE 5% 1 PATCH TD SCH (08:47)
[2020-09-17] MEDS: HYDROCODONE/ACETAMOPHEN 5/325MG TAB PO PRN (10:10)
[2020-09-17 11:23] LABS: Albumin Level 2.2 gm/dl (3.4-5.0); Bilirubin Direct 0.1 mg/dl (0-0.2); Bilirubin,Total 0.5 mg/dl (0.2-1); Total Protein 5.3 gm/dl (6.4-8.2)
[2020-09-17] MEDS: metFORMIN HCL 500 MG TAB PO SCH ×2 (12:11→17:46)
[2020-09-17] MEDS: SITagliptin PHOSPHATE 25 MG TAB PO SCH (12:11)
--- NOTE | 2020-09-17 12:34 | Orthopedic Progress Note ---
Date of Service September 17, 2020 Assessment & Plan (1) Closed fracture of right hip: Plan: Postop day 2 status post right TFN PT/OT protocols. DVT prophylaxis-enoxaparin, SCDs, TEODORO metz. Pain management as written. Patient appears to be doing quite well. She states that she is planning to stay at a rehab facility before returning home. Orthopedics will sign off at this time. Please call with any questions. Instructions placed in discharge instructions section Plan: s/p right hip TFN PT/OT On hold with tylenol/ASA per medicine. Continue SCDs, TEDs, Lovenox TTWB Discharge to a rehab facility will be needed Admission and Anticipated Discharge Date Admission Date: September 14, 2020 Subjective Postop day 2 Patient sitting up in bed awake and alert. She states that she is comfortable and her pain is controlled. No complaints today. Denies shortness of breath, chest pain, lightheadedness. Physical Exam Physical Exam: New dressings have been applied. Dressings are clean, dry, and intact. She has no erythema around the dressings themselves. Mild swelling of the thigh. Calves are soft nontender. Neurovascular intact. Toes are mobile. Results & Data ([facility]) Vital Signs (Past 12 Hours) Vital Signs Temp Pulse Pulse Resp BP Pulse Ox 09/17/20 07:11 37.4 C 71 19 117/61 96 09/17/20 00:47 72 15 103/48 L 90 Laboratory Results Laboratory Results WBC 5.92 K/uL (4.8-10.8) 09/17/20 06:11 RBC 2.68 M/uL (4.2-5.4) L 09/17/20 06:11 Hgb 7.9 g/dL (12.0-16.0) L 09/17/20 06:11 Hct 24.8 % (37-47) L 09/17/20 06:11 MCV 92.5 fL (80-100) 09/17/20 06:11 MCH 29.5 pg (25-34) 09/17/20 06:11 MCHC 31.9 g/dL (32-36) L 09/17/20 06:11 RDW Std Deviation 45.9 fL (36.4-46.3) 09/17/20 06:11 RDW Coeff of Atiya 13.6 % (11.5-14.5) 09/17/20 06:11 Plt Count 114 K/uL (130-400) L 09/17/20 06:11 MPV 11.8 fL (7.4-10.4) H 09/17/20 06:11 Immature Gran % (Auto) 0.5 % 09/17/20 06:11 Neut % (Auto) 75.2 % 09/17/20 06:11 Lymph % (Auto) 13.3 % 09/17/20 06:11 [place] % (Auto) 9.5 % 09/17/20 06:11 Eos % (Auto) 1.2 % 09/17/20 06:11 Baso % (Auto) 0.3 % 09/17/20 06:11 Neut # (Auto) 4.45 K/uL (1.4-6.5) 09/17/20 06:11 Lymph # (Auto) 0.79 K/uL (1.2-3.4) L 09/17/20 06:11 [place] # (Auto) 0.56 K/uL (0.11-0.59) 09/17/20 06:11 Eos # (Auto) 0.07 K/uL (0-0.5) 09/17/20 06:11 Baso # (Auto) 0.02 K/uL (0-0.2) 09/17/20 06:11 Immature Gran # (Auto) 0.03 K/uL (0.00-0.02) H 09/17/20 06:11 RBC Morphology Unremarkable 09/17/20 06:11 PT 10.2 Seconds (9.0-12.0) 09/14/20 01:28 INR 1.0 (0.9-1.1) 09/14/20 01:28 APTT 24.1 Seconds (21.0-31.0) 09/14/20 01:28 PTT Ratio 0.9 09/14/20 01:28 Sodium 139 mmol/L (136-145) 09/17/20 06:11 Potassium 4.3 mmol/L (3.5-5.1) 09/17/20 06:11 Chloride 108 mmol/L (98-107) H 09/17/20 06:11 Carbon Dioxide 28 mmol/L (21-32) 09/17/20 06:11 Anion Gap 3.0 (3-11) 09/17/20 06:11 BUN 19 mg/dl (7-18) H 09/17/20 06:11 Creatinine 1.06 mg/dl (0.6-1.2) 09/17/20 06:11 Est Cr Clr Drug Dosing 46.9 ml/min 09/17/20 06:11 Est GFR ( Amer) 57.0 ml/min 09/17/20 06:11 Est GFR (Non-Af Amer) 49.2 ml/min 09/17/20 06:11 BUN/Creatinine Ratio 18.2 (10-20) 09/17/20 06:11 Glucose 160 mg/dl (70-99) H 09/17/20 06:11 POC Glucose 171 mg/dl (70-99) H 09/17/20 12:08 Estimat Average Glucose 140 mg/dl 09/15/20 14:17 Hemoglobin A1c 6.5 % (4.5-5.6) H 09/15/20 14:17 Calcium 8.1 mg/dl (8.5-10.1) L 09/17/20 06:11 Magnesium 1.8 mg/dl (1.8-2.4) 09/17/20 06:11 Total Bilirubin 0.5 mg/dl (0.2-1) 09/17/20 06:11 Direct Bilirubin 0.1 mg/dl (0-0.2) 09/17/20 06:11 AST 55 U/L (15-37) H 09/17/20 06:11 ALT 138 U/L (12-78) H 09/17/20 06:11 Alkaline Phosphatase 80 U/L (45-117) 09/17/20 06:11 Total Protein 5.3 gm/dl (6.4-8.2) L 09/17/20 06:11 Albumin 2.2 gm/dl (3.4-5.0) L 09/17/20 06:11 Globulin 2.9 gm/dl (2.5-4.0) 09/16/20 05:54 Albumin/Globulin Ratio 0.8 (0.9-2) L 09/16/20 05:54 25-OH Vitamin D Total 17.4 ng/ml (30-100) L 09/16/20 05:54 Urine Color Yellow 09/14/20 01:40 Urine Appearance Clear (Clear) 09/14/20 01:40 Urine pH 7.0 (4.5-7.5) 09/14/20 01:40 Ur Specific [place] 1.014 (1.000-1.030) 09/14/20 01:40 Urine Protein Negative (Negative) 09/14/20 01:40 Urine Glucose (UA) Negative (Negative) 09/14/20 01:40 Urine Ketones Negative (Negative) 09/14/20 01:40 Urine Blood 1+ (Negative) H 09/14/20 01:40 Urine Nitrite Negative (Negative) 09/14/20 01:40 Urine Bilirubin Negative (Negative) 09/14/20 01:40 Urine Urobilinogen Negative (Negative) 09/14/20 01:40 Ur Leukocyte Esterase 1+ (Negative) H 09/14/20 01:40 Urine WBC (Auto) 10-30 /hpf (0-5) H 09/14/20 01:40 Urine RBC (Auto) 5-10 /hpf (0-4) H 09/14/20 01:40 U Hyaline Cast (Auto) 0 /lpf (0-5) 09/14/20 01:40 U Epithel Cells (Auto) >30 /lpf (0-5) H 09/14/20 01:40 Urine Bacteria (Auto) Negative (Negative) 09/14/20 01:40 Digoxin < 0.1 ng/ml (0.8-2.0) L 09/14/20 01:28 COVID-19 Eval Order Covid19 at [facility] 09/14/20 02:25 SARS-CoV-2 (PCR) NEGATIVE (Negative) 09/14/20 02:25 Blood Type A Positive 09/14/20 01:29 Antibody Screen NEGATIVE 09/14/20 01:29 Impressions (1) Closed fracture of right hip Encounter type: initial encounter Qualified Code(s): S72.001A - Fracture of unspecified part of neck of right femur, initial encounter for closed fracture
--- NOTE | 2020-09-17 14:07 | Hospitalist Progress Note ---
Date of Service September 17, 2020 Assessment & Plan (1) Closed right hip fracture: Plan: Closed right hip fracture- Appreciate management per orthopedics s/p Right Troch Nail 09/15 Dr Flores Pain management per orthopedics - given increased post operative AST/ALT however will hold further acetaminophen while we trend this with AM labs Vitamin D level 17.4. Start D3 1000 units PO daily. Consider osteoporosis treatment as outpatient once fracture healed. (2) Postoperative anemia: Plan: Hgb 7.9 today. Asymptomatic therefore would still hold off a blood transfusion unless < 7. She is approximately 880mg iron deficient. Start Venofer 200mg IV today. (3) Acute kidney injury superimposed on CKD: Plan: Creatinine 1.37 -> 1.17, baseline 0.86 Eating and drinking well therefore IV fluids discontinued (4) Essential (primary) hypertension: Plan: Hypertension/CHF- Hold amlodipine, aspirin. Continue metoprolol succinate 25 mg every morning (5) CHF (congestive heart failure): Plan: See above (6) DMII (diabetes mellitus, type 2): Plan: Hold Januvia and Metformin Placed on Accu-Cheks before meals and at bedtime, will tighten NovoLog coverage per scale (7) Transaminitis: Plan: Downtrending. Restarting acetaminophen 1g TID Plan: VTE prophylaxis per orthopedics with Lovenox 30mg SQ BID Admission and Anticipated Discharge Date Admission Date: September 14, 2020 Subjective Not doing as well as she hoped with physical therapy. [place] catheter still in place due to poor ambulation. Pain under control. Anemic: no fatigue, dizziness, shortness of breath or chest pain Review of Systems Review of Systems: All systems reviewed & are unremarkable except as noted in HPI & below Physical Exam Constitutional: WD/WN, vitals as above Eyes: + anicteric sclerae; normal pupil size ENMT: external ear and nose normal, oropharynx normal Mouth: oral mucous membranes not dry Neck: trachea midline, no thyromegaly Respiratory: normal respiratory effort, lungs clear to auscultation Cardiovascular: RRR, no murmur, no edema Gastrointestinal (Abdomen): normal bowel sounds, soft, nontender, no hepatosplenomegaly Neurologic: awake Results & Data Results & Data ([facility]) Vital Signs (Past 12 Hours) Vital Signs Temp Pulse Resp BP Pulse Ox 09/17/20 07:11 37.4 C 71 19 117/61 96 PG Care Time/CCT Total # of Minutes Spent Total Time Spent with Patient: Total time spent is greater than 50% in coordination of care (as documented) at patient's floor/unit and/or counseling patient: Coding Level of Care Code 76611 Subseq Hosp Care Lvl 2 Diagnoses Closed right hip fracture S72.001A Postoperative anemia D64.9 Acute kidney injury superimposed on CKD N17.9; N18.9 Essential (primary) hypertension I10 CHF (congestive heart failure) I50.9 Heart failure chronicity: chronic Heart failure type: unspecified DMII (diabetes mellitus, type 2) E11.319 Diabetes mellitus complication detail: with diabetic retinopathy Diabetes mellitus complication status: with ophthalmic complications Diabetes mellitus nursing home insulin use: without nursing home use Diabetes mellitus macular edema: macular edema presence unspecified Diabetic retinopathy severity: with unspecified retinopathy severity Laterality: bilateral Transaminitis R74.01 (1) DMII (diabetes mellitus, type 2) Diabetes mellitus complication detail: with diabetic retinopathy Diabetes mellitus complication status: with ophthalmic complications Diabetes mellitus nursing home insulin use: without nursing home use Diabetes mellitus macular edema: macular edema presence unspecified Diabetic retinopathy severity: with unspecified retinopathy severity Laterality: bilateral Qualified Code(s): E11.319 - Type 2 diabetes mellitus with unspecified diabetic retinopathy without macular edema (2) CHF (congestive heart failure) Heart failure chronicity: chronic Heart failure type: unspecified Qualified Code(s): I50.9 - Heart failure, unspecified
[2020-09-17] MEDS ORDERED: IRON SUCROSE 200 MG in 0.9 % SODIUM CHLORIDE 100 ML IV ONE (14:13)
[2020-09-17] MEDS: CHOLECALCIFEROL 1,000 UNITS 25 MCG TAB PO SCH (17:45)
[2020-09-17] MEDS: ACETAMINOPHEN 500 MG TAB PO SCH (20:12)
[2020-09-17] MEDS: SENNA 8.6 MG TAB PO SCH (20:14)
[2020-09-17] MEDS: DOCUSATE SODIUM/SENNA 50/8.6MG TAB PO SCH (20:15)
[2020-09-17] MEDS ORDERED: ATORVASTATIN 10 MG TAB PO SCH (21:00)
[2020-09-18] MEDS: ACETAMINOPHEN 500 MG TAB PO SCH ×2 (07:38→14:27)
[2020-09-18] MEDS: DOCUSATE SODIUM 100 MG CAP PO SCH (07:39)
[2020-09-18] MEDS: MULTIVITAMIN TAB PO SCH (07:40)
[2020-09-18] MEDS: CHOLECALCIFEROL 1,000 UNITS 25 MCG TAB PO SCH (07:40)
[2020-09-18] MEDS: FERROUS GLUCONATE 324 MG TAB PO SCH (07:40)
[2020-09-18] MEDS: LIDOCAINE 5% 1 PATCH TD SCH (07:40)
[2020-09-18] MEDS: METOPROLOL SUCC 25MG EXT REL TAB PO SCH (07:41)
[2020-09-18] MEDS: SITagliptin PHOSPHATE 25 MG TAB PO SCH (07:42)
[2020-09-18] MEDS: metFORMIN HCL 500 MG TAB PO SCH (07:42)
[2020-09-18] MEDS: ENOXAPARIN INJ 30 MG/0.3 ML SYR SQ SCH (07:43)
[2020-09-18 08:46] LABS: Basophils # (auto) 0.03 K/uL (0-0.2); Basophils % (auto) 0.5 %; Eosinophils # (auto) 0.09 K/uL (0-0.5); Eosinophils % (auto) 1.5 %; Hematocrit (blood only) 24.1 % (37-47); Hemoglobin 7.7 g/dL (12.0-16.0); Immature Granulocytes # (auto) 0.02 K/uL (0.00-0.02); Immature Granulocytes % (auto) 0.3 %; Lymphocytes # (auto) 0.73 K/uL (1.2-3.4); Lymphocytes % (auto) 12.1 %; Mean Corpuscular Hemoglobin 29.8 pg (25-34); Mean Corpuscular Volume 93.4 fL (80-100); Mean Platelet Volume 11.7 fL (7.4-10.4); Monocytes % (auto) 8.3 %; Neutrophils # (auto) 4.64 K/uL (1.4-6.5); Neutrophils % (auto) 77.3 %; Platelet Count 145 K/uL (130-400); RDW Coefficient of Variation 13.6 % (11.5-14.5); RDW Standard Deviation 46.9 fL (36.4-46.3); Red Blood Count 2.58 M/uL (4.2-5.4); White Blood Count 6.01 K/uL (4.8-10.8)
[2020-09-18 09:20] LABS: RBC Morphology Unremarkable
[2020-09-18 09:24] LABS: BUN Creatinine Ratio 19.3 (10-20); Calcium 8.3 mg/dl (8.5-10.1); Creatinine Clr Calc Pharmacy 49.3 ml/min; Est GFR (African American) 60.5 ml/min; Est GFR (Non-African American) 52.2 ml/min; Potassium 3.9 mmol/L (3.5-5.1)
[2020-09-18] MEDS ORDERED: IRON SUCROSE 300 MG in SODIUM CHLORIDE 0.9% 250 ML IV ONE (10:30)
--- NOTE | 2020-09-18 13:09 | XRay Report ---
XR chest 1V portable CLINICAL HISTORY: hypoxia COMPARISON STUDY: Chest radiograph September 14, 2020. FINDINGS: Lung volumes are at the lower limits of normal. Lungs are clear. There is no pneumothorax o r pleural effusion. Cardiac size is normal. Mediastinal contours are normal. There is no evidence for pulmonary edema. Calcific densities adjacent to the right shoulder are degenerative. IMPRESSION: No acute cardiopulmonary findings. ACT 112: Negative or not required by law. Electronically signed by: Leonard Church M.D. 09/18/2020 1:07 PM
--- NOTE | 2020-09-18 15:35 | Discharge Summary ---
Date of Service September 18, 2020 Admission HPI Per Admitting Provider The patient is an 79-year-old female with a past medical history including right TKA, left COSME, hypertension, CKD stage III, CHF, diabetes mellitus type 2 and osteoarthritis. She is brought to the emergency department for assessment right hip pain after a mechanical fall where she tripped and fell in her bathroom earlier in the evening. She denies any head injury neck injury or any other associated symptoms from falling. X-ray performed in the ED showed a closed right hip fracture. Pertinent laboratories include creatinine 1.37, glucose 167, and albumin 3.2 Discharge Data Allergies Allergy/AdvReac Type Severity Reaction Status Date / Time No Known Allergies Allergy Verified 09/14/20 01:23 Consultations 09/14/20 02:23 ED Decision to Admit Stat 09/14/20 05:12 Consult Orthopedic Surgery Routine Procedures Performed Operation Date: 09/15/20 07:30 Actual Procedures p Right Troch Nail Intermediate(Right) - Eric Flores MD Ordered Studies 09/15/20 FL hip RT 2-3V Routine Hospital Course (1) Closed right hip fracture: Closed right hip fracture- Appreciate management per orthopedics s/p Right Troch Nail 09/15 Dr Flores Pain management per orthopedics - given increased post operative AST/ALT however will hold further acetaminophen while we trend this with AM labs Vitamin D level 17.4. Start D3 1000 units PO daily. Consider osteoporosis treatment as outpatient once fracture healed. (2) Postoperative anemia: Hgb 7.9 today. Asymptomatic therefore would still hold off a blood transfusion unless < 7. She is approximately 880mg iron deficient. Start Venofer 200mg IV today. (3) Acute kidney injury superimposed on CKD: Creatinine 1.37 -> 1.17, baseline 0.86 Eating and drinking well therefore IV fluids discontinued (4) Essential (primary) hypertension: Hypertension/CHF- Hold amlodipine, aspirin. Continue metoprolol succinate 25 mg every morning (5) CHF (congestive heart failure): See above (6) DMII (diabetes mellitus, type 2): Hold Januvia and Metformin Placed on Accu-Cheks before meals and at bedtime, will tighten NovoLog coverage per scale (7) Transaminitis: Downtrending. Restarting acetaminophen 1g TID VTE prophylaxis per orthopedics with Lovenox 30mg SQ BID Discharge Plan Discharge Items Patient Disposition: Transfer Inpatient Rehab Fac Reason For Visit: CLOSED RIGHT HIP FRACTURE Discharge Diagnosis: Right hip fracture Activity: Per Instructions section Weightbearing: Right toe touch Weightbearing Comment: with walker Non-emergency contact: Surgeon Call non-emergency contact if: your pain is not controlled, your temperature is above 101.5, your wound has increased redness and your wound has increased drainage Follow-up/Referrals: Eric Flores MD [Physician] - (follow up in 10-14 days for wound check) Teodoro Ragland M.D. [Primary Care Provider] - Katy Napoles CRNP [Nurse Practitioner] - (follow up in 4-6 weeks to begin osteoporosis workup) Addtl Attending Provider Instructions: Maricel Bertrand is an 79 year old female admitted to [facility] from September 14 - September 18, 2020 due to right hip pain after a mechanical fall while tripping in her bathroom. She was diagnosed with a right intertrochanteric hip fracture with subtrochanteric extension. She was medically optimized overnight and taken for Right hip intertrochanteric nail with subtrochanteric extension by Dr Flores on September 15. Post-operative estimated blood loss 50ml. However, hemoglobin has decreased from 12.3 pre-operatively to 8.5 post- operatively. Some of this is dilutional and from September 16 (Hgb 8.5) to September 18 (Hgb 7.7) her anemia has been relatively stable. Venofer total 500mg IV given during inpatient stay. Recommend additional 300mg be set up as outpatient. She should also continue on oral iron supplementation as prescribed. She has been asymptomatic with her anemia. Recommend repeat hemoglobin in approximately 2-3 days to assess for continued stability, sooner if symptomatic. She has also been relatively hypoxic after her operation. Suspect this is due to atelectasis. CXR showed no acute abnormalities post operatively. Addtl Sonography Technologist Provider Instructions: [facility] DISCHARGE INSTRUCTIONS: HIP FRACTURE SELF CARE INSTRUCTIONS: A. You are to ambulate with a walker or crutches for approximately 6 weeks. B. You are TOE TOUCH WEIGHT BEARING on your operative lower extremity for at least 6 weeks. C. Wear low heeled shoes with non-slip soles D. Be sure that your floors are free of things that could trip you throw rugs, electrical cords, and small objects. Avoid wet and waxed floors, especially with crutches/walker/cane. E. Try to walk several times a day with rest periods between. F. You may shower 48 hours after surgery and get the incision area wet, but DO NOT soak or submerge incision area in water. (No baths, swimming pools, hot tubs) G. You may have a large, band-aid like dressing over your incision (Aquacel). This will remain on your incision for 7 days, and then can be removed. You CAN shower with this on. If incision is leaking through the dressing, please call the office . H. Do NOT apply soap or any ointment/lotions directly over incision. I. You may use ice as needed to operative site. SPECIAL CARE INSTRUCTIONS: VERY IMPORTANT TO READ AND REVIEW A. You may be at risk for phlebitis or blood clots. a. Wear surgical stockings (TEODORO hose) for 2 weeks after surgery to improve circulation and reduce swelling. b. Take LOVENOX 40mg SQ qam for 4 weeks or as directed. This is your blood thinner. . B. There are a few signs you need to watch for after you are home. Call [facility] at [phone] if you experience any of the following: a. If you have a temperature of 101 degrees or higher. b. Sudden increase in pain in your hip not relieved by rest or pain medication. c. Any fluid or drainage from the incision; redness of the incision. d. Shortness of breath or chest pain. C. Call your physician if: a. Temperature is greater than 101 degrees (F). b. Pain is not relieved by prescribed pain medications. c. Increase drainage or redness from incision. d. Unanswered questions or concerns. D. Pain Medication: a. You will be prescribed pain medication upon discharge that should last till your first post-operative appointment. b. If you experience nausea and/or skin rash, discont inue this medication and contact our office for an alternative medication. c. Caution- narcotic pain medication can cause constipation. FOLLOW UP VISIT: Please call [facility] at [phone] to schedule a follow up appointment 10-14 days from the date of your surgery date. Pending Studies at Discharge: No Stand-Alone Forms: My [facility] Skilled Items Patient informed of condition?: Yes DNR: No Discharge Level of Care: Acute rehab Communicable Disease: No Discharge Prognosis: Stable Lines: None Urinary Catheter: No Medications and DC Order Prescriptions: New enoxaparin [Lovenox] 40 mg/0.4 mL syringe 40 mg subcut DAILY 28 Days Qty: 11.2 RF: 0 ferrous gluconate 324 mg (38 mg iron) Tablet 324 mg PO BIDM Qty: 60 RF: 0 oxycodone 5 mg Tablet 5 - 10 mg PO Q4H PRN (Reason: pain) Qty: 10 RF: 0 multivitamin [Daily-Gely] Tablet 1 tab PO QAM Qty: 30 RF: 0 sennosides [Senokot] 8.6 mg Tablet 17.2 mg PO HS PRN (Reason: constipation) Qty: 60 RF: 0 acetaminophen [Tylenol Extra Strength] 500 mg Tablet 1,000 mg PO TID Qty: 60 RF: 0 Continued metformin 500 mg Tablet 500 mg PO BID RF: 0 lidocaine 5 % Adhesive Patch,Medicated 2 patch TOPICAL QAM RF: 0 docusate sodium [Colace] 100 mg Capsule 100 mg PO DAILY RF: 0 metoprolol succinate [Toprol XL] 25 mg Tablet Extended Release 24 Hr 25 mg PO QAM RF: 0 Januvia 50 mg Tablet 50 mg PO QAM RF: 0 atorvastatin 10 mg tablet 10 mg PO HS RF: 0 Discontinued amlodipine [Norvasc] 10 mg Tablet 10 mg PO QAM RF: 0 aspirin 81 mg Tablet,Delayed Release (Dr/Ec) 81 mg PO DAILY RF: 0 Discharge Orders: Discharge Order (Routine); Ordered 09/18/20 Ordered By: Elpidio Mclain Admission Data Admit Date/Time: 09/14/20 02:51 Attending Provider: Elpidio Mclain Admit Provider: Eric Flores Primary Care Provider: Teodoro Ragland Other Providers: [facility] ; Aj Mccray ; Carlos Remy Other Interventions: Discharge Summary Assessment (RN) Last Done: 09/18/20 14:36 Coding Diagnoses Closed right hip fracture S72.001A Postoperative anemia D64.9 Acute kidney injury superimposed on CKD N17.9; N18.9 Essential (primary) hypertension I10 CHF (congestive heart failure) I50.9 Heart failure type: unspecified Heart failure chronicity: chronic DMII (diabetes mellitus, type 2) E11.319 Diabetes mellitus correction insulin use: without long filler cigar roller machine use Diabetes mellitus complication status: with ophthalmic complications Diabetes mellitus complication detail: with diabetic retinopathy Diabetic retinopathy severity: with unspecified retinopathy severity Diabetes mellitus macular edema: macular edema presence unspecified Laterality: bilateral Transaminitis R74.01
[2020-09-19] MEDS ORDERED: ENOXAPARIN INJ 30 MG/0.3 ML SYR SQ SCH (09:00)
--- NOTE | 2020-09-27 08:38 | Coding Query ---
To promote full compliance with coding requirements relating to patient care, physician participation is requested in all cases of traffic engineer uncertainty. Please assist us with the question(s) below: Coding Question(s): It was noted throughout the record that the patient has/is suspected to have osteoporosis. According to coding guidelines "a code for osteoporotic fracture, and not a traumatic fracture, should be used for any patient with known osteoporosis who suffers a fracture, even if the patient had a minor fall or trauma, if that fall or trauma would not usually break a normal, healthy bone." Please indicate below the type of fracture: Physician's Response(s): ( ) Osteoporotic fracture of RIGHT FEMUR ( x ) Traumatic fracture of RIGHT FEMUR ( ) Other, please specify ( ) Unable to be determined Physician's Comment: Thank you for your time, ANTONINA High, [facility]
== END 2020-09-18 15:37 | DRG 481 ==
LOC: ED 00:46 → SUATTDRO 02:51 → 3N 02:51